=== PATIENT | male | born 1955 | race Caucasian/White ===

== ENCOUNTER → 2018-10-03 | Outpatient (CLI) | payer OTHER, MEDICARE ==
[2018-10-03 08:17] LABS: African American GFR (CKD) >90 (>60 ml/min/1.73 sqM); Blood Urea Nitrogen 22 mg/dL (9-20); Non-African American GFR(CKD) >90 (>60 ml/min/1.73 sqM)
--- NOTE | 2018-10-03 09:14 | CT ---
EXAMINATION TYPE: CT chest w con DATE OF EXAM: 10/03/2018 COMPARISON: None HISTORY: Solitary pulmonary nodule CT DLP: 182.60 mGycm Automated exposure control for dose reduction was used. CONTRAST: CT scan of the chest is performed with IV Contrast, patient injected with 100 ml mL of Isovue 300. FINDINGS: LUNGS: There is a 1.8 cm pleural-based mass within the right lower lobe. Subsegmental areas of consol idation are noted. No pleural effusion or pneumothorax. MEDIASTINUM: There is a lymph node in the right hilum measuring 1.2 cm in short axis compatible with adenopathy additional shotty right hilar adenopathy noted. No pericardial effusion is seen. OTHER: Hypertrophic change of the vertebral column. IMPRESSION: 1. There is a 1.8 cm pleural-based mass right lower lobe. Malignancy in the differential diagnosis. R ecommend a PET scan to assess for inflammatory versus neoplastic process
== END | disposition home or self-care (01) ==
LOC: RADCTMAIN 07:44
PROVIDERS: ATTEND Family Medicine
DX: R91.8 Other nonspecific abnormal finding of lung field (principal)
CPT/HCPCS: 82565; 84520; 71260; 36415; Q9967

== ENCOUNTER → 2018-10-11 | Outpatient (CLI) | payer OTHER, MEDICARE ==
--- NOTE | 2018-10-12 11:13 | PE ---
EXAMINATION TYPE: PET CT fusion skull to thigh DATE OF EXAM: 10/11/2018 COMPARISON: CT chest 10/03/2018 Prior PET/CT: None HISTORY: Solitary pulmonary nodule right lung TECHNIQUE: Following the intravenous administration of 10.75 mCi of F-18 FDG, whole body images are performed from the skull base to the midthigh. Images are reviewed on the computer in the coronal, a xial, and sagittal planes. Reconstructed rotating images are created on independent workstation and reviewed on the computer. A localization and attenuation correction CT is performed in conjunction with the PET scan. DLP: 429.57 mGycm SCAN: Initial Blood glucose: 92 mg/dL Average Mediastinum SUV: 1.21 Average Liver SUV: 1.58 FINDINGS: NECK: No abnormal uptake THORAX: There is a focus of radiotracer posterior to the right shoulder within the soft tissues. This has an SUV value of 3.15 is uncertain etiology or clinical significance. Underlying CT appears unrem arkable. There is a peripheral consolidation in the lateral right lung base. This has an SUV of a 1.12 inches likely related to inflammatory change monitoring with CT can be performed. No suspicious uptake withi n the right hilar region is evident. ABDOMEN: No abnormal uptake PELVIS: No abnormal uptake OSSEOUS STRUCTURES: No abnormal uptake LOCALIZATION CT: Ascending thoracic aorta at the level of main pulmonary artery is 3.6 cm. The main p ulmonary artery the bifurcation is 2.1 cm. Prominent right hilar lymph node is not evident. There is continued consolidation in the periphery of the right lateral lung base currently measuring 1.8 cm, s table from prior exam. Moderate fecal retention is present. COMPARISON: Chest CT portion appears stable from comparison IMPRESSION: 1. Consolidation within the lateral right lung base appears to be compatible with an inflammatory pro cess. Recommend follow-up CT chest in 6 months. This should be confirmed as stable over the course of 2 years. 2. Focal area of radiotracer accumulation in the posterior right shoulder soft tissues of uncertain e tiology or significance. SUV value is higher than normal background.
== END | disposition home or self-care (01) ==
LOC: RADPETMAIN 13:32
PROVIDERS: ATTEND Family Medicine
DX: R91.1 Solitary pulmonary nodule (principal); I77.89 Other specified disorders of arteries and arterioles; K56.41 Fecal impaction
CPT/HCPCS: 78815; A9552

== ENCOUNTER → 2018-10-17 | Outpatient (CLI) | payer OTHER ==
--- NOTE | 2018-10-17 16:08 | MR ---
EXAMINATION TYPE: MR brain wo con DATE OF EXAM: 10/17/2018 3:02 PM COMPARISON: NONE HISTORY: Ataxic gait, right hemiparesis Multiplanar and multispin-echo imaging of the brain was performed . The ventricles, basal cisterns and sulci overlying the cerebral convexities are within normal limits. There is no evidence for midline shift or mass effect. Acute intracranial hemorrhage or extra-axial collection is not evident. The brain parenchyma reveals scattered and confluent hyperintensity in the periventricular and deep w fredis matter, approximately 30-40 lesions are present. Age-related atrophy is also present. No acute edema is identified. The paranasal sinuses are remarkable for inflammatory change in ethmoid air cells, frontal sinus, and mastoid air cells are well-aerated. IMPRESSION: Age-related changes of atrophy and probable chronic small vessel ischemia. Sinus disease.
== END | disposition home or self-care (01) ==
LOC: RADMRIMAIN 14:20
PROVIDERS: ATTEND Psychiatry & Neurology Neurology
DX: G31.1 Senile degeneration of brain, not elsewhere classified (principal); J32.9 Chronic sinusitis, unspecified; R26.0 Ataxic gait
CPT/HCPCS: 70551

== ENCOUNTER 2019-01-21 11:50 | Day surgery (SDC) | payer OTHER, MEDICARE ==
[2019-01-16 15:56] VITALS: BMI 22.8
[~2019-01-21 11:50] MED LIST: LACTATED RINGERS 1,000 ML IV SCH
[2019-01-21 12:10] VITALS: TEMP 98.6
[2019-01-21] MEDS ORDERED: PROPOFOL 10 MG/ML 20 ML VIAL IV ONE (13:44)
[2019-01-21] MEDS ORDERED: LIDOCAINE 1% INJ 10MG/ML (20 ML MDV) ONE (13:44)
--- NOTE | 2019-01-21 14:14 | P.PCN ---
Date of Procedure: 01/21/19 Description of Procedure: BRIEF HISTORY: 63-year-old male who presents for outpatient colonoscopy. Patient has a personal history of colon polyps. Last colonoscopy 5 years ago. Denies any change in bowel habits, blood per rectum or abdominal pain. PROCEDURE PERFORMED: Colonoscopy. PREOPERATIVE DIAGNOSIS: Personal history of colon polyps, last colonoscopy 5 years ago. ESTIMATED BLOOD LOSS: Minimal. IV sedation per Anesthesia. PROCEDURE: After informed consent was obtained, the patient, was brought into the endoscopy unit. IV sedation was administered by Anesthesia under continuous monitoring. Digital rectal examination was normal. Initially the Olympus CF-190 flexible video colonoscope was then inserted in the rectum, gradually advanced into the cecum without any difficulty. Careful examination was performed as the scope was gradually being withdrawn. Ileocecal valve and the appendiceal orifice were visualized and appeared normal. Prep was excellent. Mucosa of the cecum, ascending colon, transverse colon, descending colon, sigmoid colon, and rectum appeared normal. Retroflexion was performed in the rectum and no lesions were seen. The patient tolerated the procedure well. IMPRESSION: Normal-appearing colon from rectum to cecum. RECOMMENDATIONS: Findings of this examination were discussed with the patient and his . Okay to resume diet and medications. Would recommend repeat colonoscopy in 5 years given personal history of colon polyps.
[2019-01-21 14:35] VITALS: RESP 18
[2019-01-21 14:53] VITALS: BP 148/90; PULSE 70
== END 2019-01-21 15:00 | disposition home or self-care (01) ==
LOC: ORWHC2ENDO 11:50
PROVIDERS: ATTEND Internal Medicine
DX: Z12.11 Encounter for screening for malignant neoplasm of colon (principal); J45.909 Unspecified asthma, uncomplicated; M19.90 Unspecified osteoarthritis, unspecified site; G20 Parkinson's disease; Z79.82 Long term (current) use of aspirin; Z79.899 Other long term (current) drug therapy; Z91.018 Allergy to other foods; Z86.010 Personal history of colon polyps; Z87.19 Personal history of other diseases of the digestive system
CPT/HCPCS: 45378; J2001; J2704

== ENCOUNTER → 2019-02-11 | Outpatient (CLI) | payer OTHER, MEDICARE ==
[2019-02-11 10:13] LABS: African American GFR (CKD) >90 (>60 ml/min/1.73 sqM); Blood Urea Nitrogen 22 mg/dL (9-20); Non-African American GFR(CKD) >90 (>60 ml/min/1.73 sqM)
--- NOTE | 2019-02-11 15:05 | CT ---
EXAMINATION TYPE: CT chest w con DATE OF EXAM: 02/11/2019 COMPARISON: 10/03/2018 and PET/CT of 10/21/2018 HISTORY: Pulmonary nodule CT DLP: 179.10 mGycm. Automated Exposure Control for Dose Reduction was Utilized. TECHNIQUE: CT scan of the thorax is performed following with IV Contrast, patient injected with 100 ml mL of Isovue 300. FINDINGS: LUNGS: The previously seen 1.8 cm pleural-based mass on the CT of 10/03/2018 has decreased in size and now appears as focal scarring with a maximum dimension measuring 1 cm. This has predominantly linear components. There is cylindrical bronchiectasis and atelectasis in the right middle lobe. Medial righ t basilar atelectasis along the hemidiaphragm. There is no pleural effusion or pneumothorax seen. S ome tracheal secretions are seen in the upper trachea such as on image 10 of series 4. MEDIASTINUM: Decrease in size of the right hilar lymph node now measuring 9 mm in short axis. There a re no greater than 1 cm hilar or mediastinal lymph nodes. No pericardial effusion is seen. Vague p unctate coronary artery calcifications. OTHER: Mild multilevel degenerative disc disease of the spine. IMPRESSION: 1. Decreased size and now linear morphology of the right basilar pulmonary nodule appearing as a deve loping scar from prior infectious or inflammatory process. Precautionary follow-up CT thorax in 6-12 months could be considered. 2. Cylindrical bronchiectasis and groundglass opacities in the right middle lobe that can be seen in microbacterium avium complex ([place] syndrome is present. Additionally tracheal secretions a re incidentally noted.
== END | disposition home or self-care (01) ==
LOC: RADCTMAIN 09:26
PROVIDERS: ATTEND Family Medicine
DX: R91.1 Solitary pulmonary nodule (principal); J47.9 Bronchiectasis, uncomplicated
CPT/HCPCS: 36415; 71260; 82565; 84520

== ENCOUNTER → 2023-10-15 | Outpatient (CLI) | payer MEDICARE, OTHER | END | disposition home or self-care (01) | LOC: LABPRL 10:35 | PROVIDERS: ATTEND Family Medicine | DX: C91.90 Lymphoid leukemia, unspecified not having achieved remission (principal); R53.83 Other fatigue | CPT/HCPCS: 80053; 85025 ==

== ENCOUNTER → 2023-11-12 | Outpatient (CLI) | payer MEDICARE, OTHER ==
[2023-11-12 14:03] LABS: African American GFR (CKD) >90 (>60 ml/min/1.73 sqM); Blood Urea Nitrogen 19 mg/dL (9-20); Non-African American GFR(CKD) >90 (>60 ml/min/1.73 sqM)
--- NOTE | 2023-11-12 15:26 | CT ---
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 CONTRAST: CT scan of the chest, abdomen and pelvis is performed with Oral Contrast and with IV Contrast, patien t injected with 100 mL of Isovue 300. FINDINGS: CT chest: There is a 3.2 cm mass or focal parenchymal consolidation with ill-defined margins in the right lower lobe. The center of the mass is hypodense possibly indicating necrosis. There is a large area of con solidated opacity with air bronchograms and areas of decreased density in the right upper lobe. Findi ngs are suspicious for neoplasm or inflammatory process with early abscess development. The left lung is clear. There is no pleural effusion, pleural thickening or pneumothorax. The great vessels and chest are normal there is no mediastinal, hilar or axillary adenopathy. No focal osseous lesions are seen. CT abdomen and pelvis: There is a moderate hiatal hernia. Gallbladder is normal without distention, pericholecystic fluid, wall thickening or gallstone. There is no biliary ductal dilatation. There is no focal mass or organomegaly involving the liver, pancreas, spleen or adrenal glands.. There is no solid renal mass or hydronephrosis. There is no retroperitoneal adenopathy or hemorrhage in the caliber of the abdominal aorta is normal. The bowel loops are normal in caliber and there is no dilatation or obstruction. No inflammatory hernandez ges identified in the bowel wall and mesentery. There is no free intracranial air or fluid. There is no pelvic mass or adenopathy. There is no free fluid within the pelvis. There is moderate dextroscoliosis and moderate stenosis are multilevel degenerative disease from L2 t hrough S1. No focal osseous lesions identified. IMPRESSION: 1. Right lower and upper lobe lung consolidations/masses as described above. Moderate hiatal hernia. 2. No significant abnormalities of the abdomen or pelvis.
== END | disposition home or self-care (01) ==
LOC: RADCTMAIN 13:13
PROVIDERS: ATTEND Internal Medicine Hematology & Oncology
DX: C91.10 Chronic lymphocytic leukemia of B-cell type not having achieved remission
CPT/HCPCS: 36415; 71260; 74177; 82565; 84520

== ENCOUNTER 2023-11-21 14:41 | Inpatient (IN) | payer MEDICARE, OTHER ==
--- NOTE | 2023-11-21 15:34 | ED ---
SOB HPI - General Source: patient, RN notes reviewed Mode of arrival: ambulatory Limitations: no limitations - History of Present Illness Complaint: shortness of breath, cough <Griselda Silva - Last Filed: 11/21/23 15:31> - General Source: patient, RN notes reviewed Mode of arrival: ambulatory Limitations: no limitations - History of Present Illness Complaint: shortness of breath, cough, chest pain, pain with inspiration, anxiety -: days(s) Radiation: back Severity: moderate Severity scale (1-10): 7 Quality: sharp Consistency: constant Improves With: nothing Known History Of: COPD, asthma Context: recent URI Associated Symptoms: chest pain, pain with inspiration, cough, sputum production <Jacky Car - Last Filed: 12/03/23 12:50> - General Chief Complaint: Recheck/Abnormal Lab/Rx Stated Complaint: lung issue Time Seen by Provider: 11/21/23 15:31 - History of Present Illness Initial Comments: Quick Note: This is a 68-year-old male who presents to the emergency department for shortness of breath. Patient follows with Dr. Hebert for CLL. He had a CT scan done on 11/11 demonstrating a mass on his lungs. States that he has been having increasing shortness of breath, particularly at night. Also reports a cough with sputum production. He was advised by Dr. Hebert to come to the emergency department for further evaluation. (Griselda Silva) This is a 68-year-old who presents today for shortness of breath who is outgoing testing currently for underlying cancer with now shortness of breath and found of chest pain and a mass on his lung sent to ER for evaluation of shortness of breath which was especially worse at night (Jacky Car) - Related Data Home Medications Medication Instructions Recorded Confirmed Carbidopa-Levodopa 25-100 mg 2 tab PO QID@02,,,01/16/19 11/21/23 [Sinemet 25-100 mg] Cetirizine HCl [Zyrtec] 10 mg PO DAILY 01/16/19 11/21/23 Montelukast Sodium [Singulair] 10 mg PO DAILY 01/16/19 11/21/23 Cholecalciferol [Vitamin D3 (125 125 mcg PO DAILY 11/21/23 11/21/23 Mcg = 5000 Iu)] Men's Multivitamin Gummy 1 tab PO DAILY 11/21/23 11/21/23 Previous Rx's Medication Instructions Recorded Ciprofloxacin HCl [Cipro] 500 mg PO BID 15 Days #30 tab 12/02/23 Allergies Allergy/AdvReac Type Severity Reaction Status Date / Time casein Allergy Swelling Verified 11/21/23 15:04 gabapentin Allergy Rash/Hives, Verified 11/21/23 16:27 nausea/vomiting Milk Containing Products Allergy Swelling Verified 11/23/23 13:27 (Dairy) wheat Allergy Swelling Verified 11/21/23 15:04 Review of Systems ROS Other: All systems not noted in ROS Statement are negative. <Griselda Silva - Last Filed: 11/21/23 15:31> ROS Other: All systems not noted in ROS Statement are negative. <Jacky Car - Last Filed: 12/03/23 12:50> ROS Statement: Those systems with pertinent positive or pertinent negative responses have been documented in the HPI. Past Medical History Past Medical History: Neurologic Disorder, Osteoarthritis (OA) Additional Past Medical History / Comment(s): Parkinson's. Bilateral Tinnitus. History of Any Multi-Drug Resistant Organisms: None Reported Past Surgical History: Hernia Repair Past Anesthesia/Blood Transfusion Reactions: No Reported Reaction Past Psychological History: Anxiety Past Alcohol Use History: Occasional Past Drug Use History: None Reported - Past Family History Father Family Medical History: No Reported History <Griselda Silva - Last Filed: 11/21/23 15:31> General Exam Limitations: no limitations <Griselda Silva - Last Filed: 11/21/23 15:31> General appearance: alert, in no apparent distress Head exam: Present: atraumatic, normocephalic, normal inspection Eye exam: Present: normal appearance, PERRL, EOMI. Absent: scleral icterus, conjunctival injection, periorbital swelling ENT exam: Present: normal exam, mucous membranes moist Neck exam: Present: normal inspection. Absent: tenderness, meningismus, lymphadenopathy Respiratory exam: Present: normal lung sounds bilaterally. Absent: respiratory distress, wheezes, rales, rhonchi, stridor Cardiovascular Exam: Present: regular rate, normal rhythm, normal heart sounds. Absent: systolic murmur, diastolic murmur, rubs, gallop, clicks GI/Abdominal exam: Present: soft, normal bowel sounds. Absent: distended, tenderness, guarding, rebound, rigid Extremities exam: Present: normal inspection, full ROM, normal capillary refill. Absent: tenderness, pedal edema, joint swelling, calf tenderness Back exam: Present: normal inspection Neurological exam: Present: alert, oriented X3, CN II-XII intact Psychiatric exam: Present: normal affect, normal mood Skin exam: Present: warm, dry, intact, normal color. Absent: rash <Jacky Car - Last Filed: 12/03/23 12:50> - General Exam Comments Initial Comments: Visual Physical Exam Vital signs reviewed General: Well-appearing, nontoxic, no acute distress. Head: Normocephalic, atraumatic Eyes: PERRLA, EOMI ENT: Airway patent Chest: Nonlabored breathing Skin: No visual rash, normal skin tone Neuro: Alert and oriented 3 Musculoskeletal: No gross abnormalities (Griselda Silva) Course <Jacky Car - Last Filed: 12/03/23 12:50> Vital Signs 11/21/23 11/21/23 15:01 18:08 Temperature 97.9 F Pulse Rate 104 H 89 Respiratory 18 18 Rate Blood Pressure 105/69 110/63 O2 Sat by Pulse 100 100 Oximetry - Reevaluation(s) Reevaluation #1: 11/21/23 19:08 Medical records reviewed (Jacky Car) Reevaluation #2: 11/21/23 19:08 Patient symptoms relatively unchanged (Jacky Car) Reevaluation #3: 11/21/23 19:08 Patient informed of results and questions answered (Jacky Car) Reevaluation #4: Was pt. sent in by a medical professional or institution (, PA, [employer], urgent care, hospital, or fdc...) When possible be specific @ -no Did you speak to anyone other than the patient for history (EMS, parent, family, police, friend...)? What history was obtained from this source @ -no Did you review nursing and triage notes (agree or disagree)? Why? @ -agree Are old charts reviewed (outside hosp., previous admission, EMS record, old EKG, old radiological studies, urgent care reports/EKG's, fdc records)? Re port findings @ -yes Differential Diagnosis (chest pain, altered mental status, abdominal pain women, abdominal pain men, vaginal bleeding, weakness, fever, dyspnea, syncope, headache, dizziness, GI bleed, back pain, seizure, CVA, palpatations, mental health, musculoskeletal)? @ -prior EKG interpreted by me (3pts min.). @ -yes X-rays interpreted by me (1pt min.). @ -yes positive for cancer pneumonia CT interpreted by me (1pt min.). @ -Yes positive for cancer pneumonia U/S interpreted by me (1pt. min.). @ -no What testing was considered but not performed or refused? (CT, X-rays, U/S, la bs)? Why? @ -none What meds were considered but not given or refused? Why? @ -none Did you discuss the management of the patient with other professionals (professionals i.e. , PA, [employer], lab, RT, psych nurse, family welfare social work professor, content management consultant, teacher, chief operations officer, casework supervisor)? Give summary @ -no Was smoking cessation discussed for >3mins.? @ -no Was critical care preformed (if so, how long)? @ -yes31 Were there social determinants of health that impacted care today? How? (Homelessness, low income, unemployed, alcoholism, drug addiction, transportation, low edu. Level, literacy, decrease access to med. care, intermediate, rehab)? @ -none Was there de-escalation of care discussed even if they declined (Discuss DNR or withdrawal of care, Hospice)? DNR status @ -no What co-morbidities impacted this encounter? (DM, HTN, Smoking, COPD, CAD, Cancer, CVA, ARF, Chemo, Hep., AIDS, mental health diagnosis, sleep apnea, morbid obesity)? @ -none Was patient admitted / discharged? Hospital course, mention meds given and route, prescriptions, significant lab abnormalities, going to OR and other pertinent info. @ - 68 male will be admitted for likely obstructive pneumonia lung cancer elevating white count Admitted Undiagnosed new problem with uncertain prognosis? @ -no Drug Therapy requiring intensive monitoring for toxicity (Heparin, Nitro, Insulin, Cardizem)? @ -no Were any procedures done? @ -no Diagnosis/symptom? @ -obstructive pneumonia with lung cancer Acute, or Chronic, or Acute on Chronic? @ -Acute Uncomplicated (without systemic symptoms) or Complicated (systemic symptoms)? @ -Complicated Side effects of treatment? @ -no Exacerbation, Progression, or Severe Exacerbation? @ -exacerbation Poses a threat to life or bodily function? How? (Chest pain, [place], [place], pneumonia, PE, COPD, DKA, ARF, appy, cholecystitis, CVA, Diverticulitis, Homicidal, Suicidal, threat to staff... and all critical care pts) @ -yes extremes of age (Jacky Car) Reevaluation #5: Differential Dyspnea: Coronary syndrome, arrhythmia, tamponade, asthma, COPD, pulmonary embolism, pneumonia, pneumothorax, pulmonary effusion, anaphylaxis, diabetic ketoacidosis, flailed chest, pulmonary contusion, diaphragmatic rupture, anemia, neuromuscular, this is not meant to be an all-inclusive list. Differential Weakness: Hypoglycemia, shock, sepsis, hyponatremia, anemia, infection, [place], ETOH, adverse medicine reaction, overdose, stroke, this is not meant to be an all-inclusive list. (Jacky Car) - Consultations Consultation #1: Spoke with Dr. Foster who agrees to admit this patient (Jacky Car) Medical Decision Making <Griselda Silva - Last Filed: 11/21/23 15:31> - Lab Data Result diagrams: 12/02/23 06:23 12/02/23 06:23 - EKG Data -: EKG Interpreted by Me (EKG is sinus 88 DC 142 QRS 94 QTc 413) - Radiology Data Radiology results: report reviewed (Chest x-ray shows symptoms of significant pneumonia), image reviewed <Jacky Car - Last Filed: 12/03/23 12:50> - Medical Decision Making I performed the QuickNote portion of this chart. Signed Griselda Silva PA-C. (Griselda Silva) 68 male will be admitted for likely obstructive pneumonia lung cancer elevating white count (Jacky Car) - Lab Data Lab Results 11/21/23 11/21/23 11/21/23 Range/Units 16:48 16:48 16:48 WBC 28.8 H (3.8-10.6) k/uL RBC 4.33 (4.30-5.90) m/uL Hgb 10.9 L (13.0-17.5) gm/dL Hct 33.8 L (39.0-53.0) % MCV 78.1 L (80.0-100.0) fL MCH 25.1 (25.0-35.0) pg MCHC 32.2 (31.0-37.0) g/dL RDW 15.2 (11.5-15.5) % Plt Count 822 H (150-450) k/uL MPV 8.3 Neutrophils % 62 % Lymphocytes % 33 % Monocytes % 4 % Eosinophils % 0 % Basophils % 0 % Neutrophils # 17.7 H (1.3-7.7) k/uL Lymphocytes # 9.4 H (1.0-4.8) k/uL Monocytes # 1.1 H (0-1.0) k/uL Eosinophils # 0.1 (0-0.7) k/uL Basophils # 0.1 (0-0.2) k/uL Manual Slide Review Performed Hypochromasia Slight PT 12.3 (10.0-12.5) sec INR 1.2 H (<1.2) APTT 29.2 (22.0-30.0) sec Sodium 135 L (137-145) mmol/L Potassium 4.8 (3.5-5.1) mmol/L Chloride 96 L (98-107) mmol/L Carbon Dioxide 32 H (22-30) mmol/L Anion Gap 7 mmol/L BUN 19 (9-20) mg/dL Creatinine 0.58 L (0.66-1.25) mg/dL Est GFR (CKD-EPI)AfAm >90 (>60 ml/min/1.73 sqM) Est GFR (CKD-EPI)NonAf >90 (>60 ml/min/1.73 sqM) Glucose 101 H (74-99) mg/dL Plasma Lactic Acid Kyle (0.7-2.0) mmol/L Calcium 9.4 (8.4-10.2) mg/dL Magnesium 1.8 (1.6-2.3) mg/dL Total Bilirubin 0.8 (0.2-1.3) mg/dL AST 20 (17-59) U/L ALT <6 (4-49) U/L Alkaline Phosphatase 144 H (38-126) U/L Troponin I (0.000-0.034) ng/mL NT-Pro-B Natriuret Pep 376 pg/mL Total Protein 6.4 (6.3-8.2) g/dL Albumin 3.2 L (3.5-5.0) g/dL Influenza Type A (PCR) (Not Detectd) Influenza Type B (PCR) (Not Detectd) RSV (PCR) (Not Detectd) SARS-CoV-2 (PCR) (Not Detectd) 11/21/23 11/21/23 11/21/23 Range/Units 16:48 16:48 16:48 WBC (3.8-10.6) k/uL RBC (4.30-5.90) m/uL Hgb (13.0-17.5) gm/dL Hct (39.0-53.0) % MCV (80.0-100.0) fL MCH (25.0-35.0) pg MCHC (31.0-37.0) g/dL RDW (11.5-15.5) % Plt Count (150-450) k/uL MPV Neutrophils % % Lymphocytes % % Monocytes % % Eosinophils % % Basophils % % Neutrophils # (1.3-7.7) k/uL Lymphocytes # (1.0-4.8) k/uL Monocytes # (0-1.0) k/uL Eosinophils # (0-0.7) k/uL Basophils # (0-0.2) k/uL Manual Slide Review Hypochromasia PT (10.0-12.5) sec INR (<1.2) APTT (22.0-30.0) sec Sodium (137-145) mmol/L Potassium (3.5-5.1) mmol/L Chloride (98-107) mmol/L Carbon Dioxide (22-30) mmol/L Anion Gap mmol/L BUN (9-20) mg/dL Creatinine (0.66-1.25) mg/dL Est GFR (CKD-EPI)AfAm (>60 ml/min/1.73 sqM) Est GFR (CKD-EPI)NonAf (>60 ml/min/1.73 sqM) Glucose (74-99) mg/dL Plasma Lactic Acid Kyle 1.1 (0.7-2.0) mmol/L Calcium (8.4-10.2) mg/dL Magnesium (1.6-2.3) mg/dL Total Bilirubin (0.2-1.3) mg/dL AST (17-59) U/L ALT (4-49) U/L Alkaline Phosphatase (38-126) U/L Troponin I <0.012 (0.000-0.034) ng/mL NT-Pro-B Natriuret Pep pg/mL Total Protein (6.3-8.2) g/dL Albumin (3.5-5.0) g/dL Influenza Type A (PCR) Not Detected (Not Detectd) Influenza Type B (PCR) Not Detected (Not Detectd) RSV (PCR) Not Detected (Not Detectd) SARS-CoV-2 (PCR) Not Detected (Not Detectd) Critical Care Time Critical Care Time: Yes Total Critical Care Time: 31 <Jacky Car - Last Filed: 12/03/23 12:50> Disposition <Griselda Silva - Last Filed: 11/21/23 15:31> Is patient prescribed a controlled substance at d/c from ED?: No Time of Disposition: 18:40 <Jacky Car - Last Filed: 12/03/23 12:50> Clinical Impression: Pneumonia, Lung cancer, Mass of right lung, Pneumonia involving right lung Disposition: ADMITTED IP TO THIS HOSP Condition: Good
--- NOTE | 2023-11-21 16:27 | XR ---
EXAMINATION TYPE: XR chest 2V DATE OF EXAM: 11/21/2023 COMPARISON: 05/16/2023 HISTORY: 68-year-old male shortness of breath, difficulty breathing, right lung mass TECHNIQUE: AP and lateral views FINDINGS: Heart normal size. Large opacity filling the right apex down to the right midlung level. There is a small hiatal hernia present. IMPRESSION: 1. Severe pneumonia right upper and midlung. Given the persistence, underlying pulmonary abscess not excluded. 2. Small hiatal hernia. [facility], Workstation: [facility], 11/21/2023 4:25 PM
[2023-11-21 17:16] LABS: Basophils # (A) 0.1 k/uL (0-0.2); Basophils % (A) 0 %; Eosinophils # (A) 0.1 k/uL (0-0.7); Eosinophils % (A) 0 %; HCT 33.8 % (39.0-53.0); HGB 10.9 gm/dL (13.0-17.5); Hypochromasia Slight; Lymphocytes # (A) 9.4 k/uL (1.0-4.8); Lymphocytes % (A) 33 %; MCH 25.1 pg (25.0-35.0); MCHC 32.2 g/dL (31.0-37.0); MCV 78.1 fL (80.0-100.0); Mean Platelet Volume 8.3; Monocytes # (A) 1.1 k/uL (0-1.0); Monocytes % (A) 4 %; Neutrophils # (A) 17.7 k/uL (1.3-7.7); Neutrophils % (A) 62 %; Platelet Count 822 k/uL (150-450); RBC 4.33 m/uL (4.30-5.90); RDW 15.2 % (11.5-15.5); WBC 28.8 k/uL (3.8-10.6)
[2023-11-21 17:19] LABS: ALT <6 U/L (4-49); AST 20 U/L (17-59); African American GFR (CKD) >90 (>60 ml/min/1.73 sqM); Albumin 3.2 g/dL (3.5-5.0); Alkaline Phosphatase 144 U/L (38-126); Anion Gap 7 mmol/L; Blood Urea Nitrogen 19 mg/dL (9-20); Calcium 9.4 mg/dL (8.4-10.2); Carbon Dioxide 32 mmol/L (22-30); Chloride 96 mmol/L (98-107); Glucose 101 mg/dL (74-99); Magnesium 1.8 mg/dL (1.6-2.3); Non-African American GFR(CKD) >90 (>60 ml/min/1.73 sqM); Potassium 4.8 mmol/L (3.5-5.1); Sodium 135 mmol/L (137-145); Total Bilirubin 0.8 mg/dL (0.2-1.3); Total Protein 6.4 g/dL (6.3-8.2)
[2023-11-21 17:25] LABS: INR 1.2 (<1.2); Partial Thromboplastin Time 29.2 sec (22.0-30.0); Prothrombin Time 12.3 sec (10.0-12.5)
[2023-11-21 17:26] LABS: NT-Pro-B-Type Natriuretic Pept 376 pg/mL
[2023-11-21] MEDS ORDERED: IPRATROPIUM-ALBUTEROL 3 ML NEB INHALATION PRN (18:44)
[2023-11-21] MEDS ORDERED: PNEUMONIA PROTOCOL UTILIZED 1 EACH MISC PO PRN (18:44)
[2023-11-21] MEDS: CARBIDOPA-LEVODOPA 25-100 MG 1 EACH TAB PO SCH (19:46)
[2023-11-21] MEDS: PIPERACILLIN-TAZOBACTAM 3.375 GM in SODIUM CHLORIDE 0.9% 100 ML IVPB STA (19:51)
[2023-11-21] MEDS: SODIUM CHLORIDE 0.9% 1,000 ML IV SCH (20:40)
[2023-11-21] MEDS: AZITHROMYCIN 500 MG in SODIUM CHLORIDE 0.9% 250 ML IVPB STA (20:40)
[2023-11-22] MEDS: PIPERACILLIN-TAZOBACTAM 3.375 GM in SODIUM CHLORIDE 0.9% 100 ML IVPB SCH (03:02)
--- NOTE | 2023-11-22 06:10 | P.CNPUL ---
History of Present Illness Consult date: 11/22/23 Requesting physician: Jacky Car Reason for consult: dyspnea Chief complaint: Shortness of breath History of present illness: Patient is a 68-year-old male with past medical history significant for lung nodules, bronchiectasis, Parkinson's disease, CLL. Patient follows in the pulmonary office with Dr. Morocho. Had a previous right lower lobe peripheral based nodule. PET scan done in 2019 concerning for inflammatory process. This was followed outpatient. Patient had a more recent outpatient CT of the chest demonstrating right lower and upper lobe lung consolidation/mass like opacities. He was directed to the emergency department by his oncologist, Dr. Hebert. It appears the patient has a 3.2 cm mass or focal parenchymal consolidation with ill-defined margins in the right lower lobe. The center of the mass is hypodense possibly indicating necrosis. There is a large area of consolidated opacity with air bronchograms and areas of decreased density in the right upper lobe. Findings are suspicious for neoplasm or inflammatory process with early abscess development. Incidental hiatal hernia noted. CBC: WBC count 28.8, hemoglobin 10.9, hematocrit 33.8, platelets 822. CMP: Sodium 135, potassium 4.8, chloride 96, serum bicarb 32, BUN 19, creatinine 0.58, glucose 101. Lactic 1.1. Normal saline infusing at 100 mL/h LFTs unremarkable. Troponin less than 0.012. NT proBNP 376. Negative for influenza, RSV, COVID. Currently, the patient is covered on empiric antibiotics. Procalcitonin level pending. Afebrile. Currently resting comfortably on room air. SpO2 94%. Nontoxic appearance. Over the last 2 weeks the patient has had a congested cough with green sputum production. Sputum is foul tasting. No hemoptysis. There is associated right sided thoracic level back pain. He denies any fevers or chills. He has had an approximately 18 pound weight loss over the last couple months. He has been very fatigued over the last couple weeks. No smoking history. Patient does have Parkinson's disease, and normally ambulates with walker. Occasionally has issues swallowing. Food gets stuck in his throat. Frequently coughs after eating. No dental infections. Denies drug or alcohol use. Review of Systems Constitutional: Reports fatigue, Reports weight loss, Denies chills, Denies fever, Denies night sweats, Denies weight gain Ears, nose, mouth and throat: Reports dysphagia, Denies dental pain, Denies headache, Denies nasal congestion, Denies nasal discharge, Denies neck fullness/pressure, Denies neck lump, Denies post-nasal drip, Denies sinus pressure, Denies sore throat Cardiovascular: Reports decreased exercise tolerance, Denies chest pain, Denies leg edema, Denies orthopnea, Denies palpitations, Denies paroxysmal nocturnal dyspnea, Denies syncope Respiratory: Reports as per HPI Gastrointestinal: Reports loss of appetite, Reports nausea, Reports vomiting, Denies abdominal pain, Denies constipation, Denies diarrhea, Denies hematemesis Genitourinary: Denies dysuria Musculoskeletal: Reports gait dysfunction, Denies arm numbness/tingling, Denies leg numbness/tingling, Denies muscle weakness Integumentary: Denies rash Neurological: Reports gait dysfunction, Reports tremors, Denies confusion, Denies lack of coordination, Denies memory loss, Denies seizures, Denies visual changes Psychiatric: Denies anxiety, Denies depression Past Medical History Past Medical History: Cancer, Neurologic Disorder, Osteoarthritis (OA) Additional Past Medical History / Comment(s): Parkinson's. Bilateral Tinnitus, degenerative disk disease, scoliosis, spondyolisthesis, chronic lymphocytic leukemia History of Any Multi-Drug Resistant Organisms: None Reported Past Surgical History: Hernia Repair Past Anesthesia/Blood Transfusion Reactions: No Reported Reaction Past Psychological History: Anxiety Smoking Status: Never smoker Past Alcohol Use History: Occasional Past Drug Use History: None Reported - Past Family History Father Family Medical History: Myocardial Infarction ([place]) Additional Family Medical History / Comment(s): Father of heart attack Medications and Allergies Home Medications Medication Instructions Recorded Confirmed Type Carbidopa-Levodopa 25-100 mg 2 tab PO QID@02,08,14,20 01/16/19 11/21/23 History [Sinemet 25-100] Cetirizine HCl [Zyrtec] 10 mg PO DAILY 01/16/19 11/21/23 History Montelukast Sodium [Singulair] 10 mg PO DAILY 01/16/19 11/21/23 History hydrOXYzine HCL [Atarax] 50 mg PO HS 01/16/19 11/21/23 History Cholecalciferol [Vitamin D3 (125 125 mcg PO DAILY 11/21/23 11/21/23 History Mcg = 5000 Iu)] Men's Multivitamin Gummy 1 tab PO DAILY 11/21/23 11/21/23 History Allergies Allergy/AdvReac Type Severity Reaction Status Date / Time casein Allergy Swelling Verified 11/21/23 15:04 gabapentin Allergy Rash/Hives, Verified 11/21/23 16:27 nausea/vomiting wheat Allergy Swelling Verified 11/21/23 15:04 Physical Exam Vitals: Vital Signs Temp Pulse Pulse Resp BP BP Pulse Ox 11/22/23 01:39 98.6 F 98 16 105/67 93 L 11/21/23 21:29 98.3 F 87 16 102/65 94 L 11/21/23 18:08 89 18 110/63 100 11/21/23 15:01 97.9 F 104 H 18 105/69 100 Intake and Output 11/21/23 11/21/23 11/22/23 14:59 22:59 06:59 Other: Voiding Method Urinal Weight 61.689 kg GENERAL EXAM: Alert, 68-year-old white male, comfortable in no apparent distress. HEAD: Normocephalic and atraumatic EYES: Normal reaction of pupils, equal size. NOSE: Clear with pink turbinates. THROAT: No erythema or exudates. NECK: No masses, no JVD. CHEST: No chest wall deformity. LUNGS: Equal air entry with no crackles, wheeze, rhonchi or dullness. On room air. No conversational dyspnea or accessory muscle use.. CVS: S1 and S2 normal with no audible murmur, regular rhythm. No extra heart sounds ABDOMEN: No hepatosplenomegaly, active bowel sounds, no guarding or rigidity. SPINE: No scoliosis or deformity SKIN: No rashes CENTRAL NERVOUS SYSTEM: No focal deficits, tone is normal in all 4 extremities. EXTREMITIES: There is no peripheral edema, clubbing, or cyanosis. Peripheral pulses are intact. Results - Laboratory Findings CBC and BMP: 11/21/23 16:48 11/21/23 16:48 PT/INR, D-dimer PT 12.3 sec (10.0-12.5) 11/21/23 16:48 INR 1.2 (<1.2) H 11/21/23 16:48 Abnormal lab findings: Abnormal Labs 11/21/23 11/21/23 11/21/23 16:48 16:48 16:48 WBC 28.8 H Hgb 10.9 L Hct 33.8 L MCV 78.1 L Plt Count 822 H Neutrophils # 17.7 H Lymphocytes # 9.4 H Monocytes # 1.1 H INR 1.2 H Sodium 135 L Chloride 96 L Carbon Dioxide 32 H Creatinine 0.58 L Glucose 101 H Alkaline Phosphatase 144 H Albumin 3.2 L - Diagnostic Findings Chest x-ray: image reviewed CT scan - chest: image reviewed Assessment and Plan Assessment: Right lower and upper lobe lung consolidation/masslike opacities, differential includes infectious process with early abscess or malignancy. Outpatient CT of the chest demonstrating right lower and upper lobe lung consolidation/mass like opacities. It appears the patient has a 3.2 cm mass or focal parenchymal consolidation with ill-defined margins in the right lower lobe. The center of the mass is hypodense possibly indicating necrosis. There is a large area of consolidated opacity with air bronchograms and areas of decreased density in the right upper lobe. Findings are suspicious for neoplasm or infectious/inflammatory process with early abscess development. No significant hilar/mediastinal adenopathy. Chronic leukocytosis, higher than baseline History of CLL Hiatal hernia History of a Parkinson's disease Chronic dysphagia History of acquired bronchiectasis History of right lower lobe pleural-based pulmonary nodule Plan: Patient's medications, labs, imaging reviewed On room air, no acute distress CT scan results discussed with patient, and spouse who is at bedside Patient may need to undergo bronchoscopy Case will be discussed with Dr. Coker In the meantime, cover with empiric antibiotics Check procalcitonin level Blood and sputum cultures pending We will continue to follow, and additional recommendations are forthcoming. I have personally seen and examined the patient, performed the documentation and the assessment and plan as written. Number of minutes spent on the visit:20 Time with Patient: Greater than 30
[2023-11-22] MEDS: AZITHROMYCIN 500 MG in SODIUM CHLORIDE 0.9% 250 ML IVPB SCH (10:30)
[2023-11-22 14:30] VITALS: BMI 18.9
[2023-11-22 15:22] LABS: Immunoglobulin M 59.2 mg/dL (40.0-280.0)
--- NOTE | 2023-11-22 17:08 | XR ---
EXAMINATION TYPE: XR chest 2V DATE OF EXAM: 11/22/2023 4:38 PM CLINICAL INDICATION: Male, 68 years old with history of pneumonia; [facility] COMPARISON: Chest radiographs from 11/12/2023 TECHNIQUE: XR chest 2V Frontal view of the chest. FINDINGS: Lungs/Pleura: Consolidation of the right upper lung as seen on prior radiograph and similar to CT bra in 924. There is no evidence of pleural effusion, focal consolidation, or pneumothorax. Pulmonary vascularity: Unremarkable. Heart/mediastinum: Cardiomediastinal silhouette is unremarkable. Musculoskeletal: No acute osseous pathology. IMPRESSION: Right upper lung airspace opacity/consolidation as seen on same day radiograph. Findings are similar to 11/12/2023 CT[facility], , 11/22/2023 5:06 PM
--- NOTE | 2023-11-22 18:21 | P.HPIM ---
History of Present Illness H&P Date: 11/22/23 Jessica Pathak, is a 68-year-old male who presented to [facility] emergency room with a chief complaint of worsening shortness of breath, and a new 3.2 cm mass or focal consolidation with ill-defined margins in the right lower lobe on recent CT scan of the chest. Patient has a known history of chronic lymphocytic leukemia followed by oncology he also has a known history of Parkinson disease and history of bronchiectasis, he had a previous history of right lower lobe pleural-based pulmonary nodule followed by pulmonary as outpatient. He was evaluated in the emergency room vital examination on presentation revealed a temperature of 98.6 pulse 98 respirations 16 blood pressure 105/67 pulse ox 93% on room air Laboratory data revealed a white blood count of 28.8 hemoglobin 10.9 platelet count 822 BUN 19 creatinine 0.59 Testing in the emergency room revealed Patient was admitted to medical floor for further evaluation and treatment Past Medical History Past Medical History: Cancer, Neurologic Disorder, Osteoarthritis (OA) Additional Past Medical History / Comment(s): Parkinson's. Bilateral Tinnitus, degenerative disk disease, scoliosis, spondyolisthesis, chronic lymphocytic leukemia History of Any Multi-Drug Resistant Organisms: None Reported Past Surgical History: Hernia Repair Past Anesthesia/Blood Transfusion Reactions: No Reported Reaction Past Psychological History: Anxiety Smoking Status: Never smoker Past Alcohol Use History: Occasional Past Drug Use History: None Reported - Past Family History Father Family Medical History: Myocardial Infarction ([place]) Additional Family Medical History / Comment(s): Father of heart attack Medications and Allergies Home Medications Medication Instructions Recorded Confirmed Type Carbidopa-Levodopa 25-100 mg 2 tab PO QID@,,,01/16/19 11/21/23 History [Sinemet 25-100] Cetirizine HCl [Zyrtec] 10 mg PO DAILY 01/16/19 11/21/23 History Montelukast Sodium [Singulair] 10 mg PO DAILY 01/16/19 11/21/23 History hydrOXYzine HCL [Atarax] 50 mg PO HS 01/16/19 11/21/23 History Cholecalciferol [Vitamin D3 (125 125 mcg PO DAILY 11/21/23 11/21/23 History Mcg = 5000 Iu)] Men's Multivitamin Gummy 1 tab PO DAILY 11/21/23 11/21/23 History Allergies Allergy/AdvReac Type Severity Reaction Status Date / Time casein Allergy Swelling Verified 11/21/23 15:04 gabapentin Allergy Rash/Hives, Verified 11/21/23 16:27 nausea/vomiting wheat Allergy Swelling Verified 11/21/23 15:04 Physical Exam Vitals: Vital Signs Temp Pulse Pulse Resp BP BP Pulse Ox 11/22/23 08:05 97 11/22/23 07:56 97.6 F 92 18 113/65 95 11/22/23 01:39 98.6 F 98 16 105/67 93 L 11/21/23 21:29 98.3 F 87 16 102/65 94 L 11/21/23 18:08 89 18 110/63 100 11/21/23 15:01 97.9 F 104 H 18 105/69 100 Intake and Output 11/21/23 11/22/23 11/22/23 22:59 06:59 14:59 Intake Total 1690 Balance 1690 Intake: Intake, IV Titration 1100 Amount Piperacillin-Tazobactam 3 100 .375 gm In Sodium Chloride 0.9% 100 ml @ 25 mls/hr IVPB Q8H FELIPE Rx#: [id number] Sodium Chloride 0.9% 1, 1000 000 ml @ 100 mls/hr IV . Q10H FELIPE Rx#:[id number] Oral 590 Other: Voiding Method Urinal # Voids 1 Weight 61.689 kg In general patient is alert and oriented x 3 in no distress HEENT head normocephalic and atraumatic Neck is supple no JVD no goiter no lymphadenopathy no carotid bruit Chest examination reveals a scattered crackles bilaterally no wheezing Cardiac exam reveals regular heart sounds S1 and S2 no gallops no murmurs Abdomen is soft nontender no organomegaly with normal bowel sounds Extremity exam reveals no edema no cyanosis or clubbing Neurological examination reveals no gross focal deficits Results CBC & Chem 7: 11/21/23 16:48 11/21/23 16:48 Labs: Abnormal Lab Results - Last 24 Hours (Table) 11/21/23 11/21/23 11/21/23 Range/Units 16:48 16:48 16:48 WBC 28.8 H (3.8-10.6) k/uL Hgb 10.9 L (13.0-17.5) gm/dL Hct 33.8 L (39.0-53.0) % MCV 78.1 L (80.0-100.0) fL Plt Count 822 H (150-450) k/uL Neutrophils # 17.7 H (1.3-7.7) k/uL Lymphocytes # 9.4 H (1.0-4.8) k/uL Monocytes # 1.1 H (0-1.0) k/uL INR 1.2 H (<1.2) Sodium 135 L (137-145) mmol/L Chloride 96 L (98-107) mmol/L Carbon Dioxide 32 H (22-30) mmol/L Creatinine 0.58 L (0.66-1.25) mg/dL Glucose 101 H (74-99) mg/dL Alkaline Phosphatase 144 H (38-126) U/L Albumin 3.2 L (3.5-5.0) g/dL Thrombosis Risk Factor Assmnt - Choose All That Apply Any of the Below Risk Factors Present?: No Other Risk Factors: Yes Each Risk Factor Represents 2 Points: Age 61-74 years, Malignancy Thrombosis Risk Factor Assessment Total Risk Factor Score: 4 Thrombosis Risk Factor Assessment Level: Moderate Risk Assessment and Plan Plan: Right lower lobe and right upper lobe consolidation opacities on recent CT scan done as outpatient, patient is admitted to medical floor pulmonary consultation was requested Underlying history of chronic lymphocytic leukemia Underlying history of Parkinson disease Underlying history of bronchiectasis Underlying history of chronic dysphagia Underlying history of right lower lobe pulmonary nodule At this time patient is admitted to medical floor Home medications reviewed and reordered Pulmonary consultation was requested Will follow closely
--- NOTE | 2023-11-22 20:17 | P.CONS ---
History of Present Illness - Reason for Consult Consult date: 11/22/23 hx CLL Requesting physician: Jacky Car - Chief Complaint SOB, cough - History of Present Illness Patient is a 68 year old male with a significant history of CLL, who follows with Dr. Hebert. Patient was diagnosed with CLL by his PCP due to elevated WBC in lymphocyte count, about 4 years prior to his initial consult here. The patient appeared to have stage 0 disease, and was followed with observation. His WBC was typically in the low to mid 20 range, with normal hemoglobin and platelets. On 08/03/23 his counts appear to be at baseline with WBC 14.54, hemoglobin 13.8 and platelets 342. He had since had progressive fatigue and increased sleepiness, and has lost between 10-15 pounds in weight. Labs from 10/16/23 showed WBC of 19.93, hemoglobin dropping to 11.2, and platelets increased to 584. Differential interestingly showed elevated neutrophils at 10.1 for an absolute lymphocytes at 8.68. He was therefore referred to our clinic for further evaluation and conditions and established care on 10/31/23. The patient has subsequently labs done, that appeared to show significant inflammatory change which would explain the neutrophilia and the thrombo- cytosis. Sedimentation rate was greater than 130. Rheumatoid factor was mildly elevated, and is nonspecific. CT scan of the chest abdomen and pelvis showed significant areas of consolidation in the right lung, with associated necrosis and air bronchograms. Underlying mass causing obstruction, was not ruled out. He was advised that there appears to be no evidence of CLL progression, and that his CBC changes appear to be due to the major inflammatory process involving the right lung, with likely infection. Based on the CT scan, an underlying mass with necrosis, versus developing abscess cannot be ruled out. He was thus referred to the hospital for admission to be treated with IV antibiotics and to have further workup with pulmonary medicine. Patient states he has been experiencing chills, SOB, productive cough with while/yellow/green sputum, and night sweats. On admission at chest x-ray showed severe pneumonia right upper and midlung, given the persistence, underlying abscess not excluded. Patient was started on IV antibiotics with azithromycin and Zosyn. Viral panel negative. Blood and sputum culture pending. CBC showing leukocytosis with WBC 28.8, hemoglobin 10.9, platelets 822,000. Patient is afebrile, SpO2 95-97% on room air. Pulmonology following. Plan for now is to continue on IV abx and pending clinical course, may consider bronchoscopy. Review of Systems 10 point ROS is negative except as stated in the HPI Past Medical History Past Medical History: Cancer, Neurologic Disorder, Osteoarthritis (OA) Additional Past Medical History / Comment(s): Parkinson's. Bilateral Tinnitus, degenerative disk disease, scoliosis, spondyolisthesis, chronic lymphocytic leukemia History of Any Multi-Drug Resistant Organisms: None Reported Past Surgical History: Hernia Repair Past Anesthesia/Blood Transfusion Reactions: No Reported Reaction Past Psychological History: Anxiety Smoking Status: Never smoker Past Alcohol Use History: Occasional Past Drug Use History: None Reported - Past Family History Father Family Medical History: Myocardial Infarction ([place]) Additional Family Medical History / Comment(s): Father of heart attack Medications and Allergies Home Medications Medication Instructions Recorded Confirmed Type Carbidopa-Levodopa 25-100 mg 2 tab PO QID@02,08,14,20 01/16/19 11/21/23 History [Sinemet 25-100] Cetirizine HCl [Zyrtec] 10 mg PO DAILY 01/16/19 11/21/23 History Montelukast Sodium [Singulair] 10 mg PO DAILY 01/16/19 11/21/23 History hydrOXYzine HCL [Atarax] 50 mg PO HS 01/16/19 11/21/23 History Cholecalciferol [Vitamin D3 (125 125 mcg PO DAILY 11/21/23 11/21/23 History Mcg = 5000 Iu)] Men's Multivitamin Gummy 1 tab PO DAILY 11/21/23 11/21/23 History Allergies Allergy/AdvReac Type Severity Reaction Status Date / Time casein Allergy Swelling Verified 11/21/23 15:04 gabapentin Allergy Rash/Hives, Verified 11/21/23 16:27 nausea/vomiting wheat Allergy Swelling Verified 11/21/23 15:04 Physical Exam Vitals: Vital Signs Temp Pulse Pulse Resp BP BP Pulse Ox 11/22/23 08:05 97 11/22/23 07:56 97.6 F 92 18 113/65 95 11/22/23 01:39 98.6 F 98 16 105/67 93 L 11/21/23 21:29 98.3 F 87 16 102/65 94 L 11/21/23 18:08 89 18 110/63 100 11/21/23 15:01 97.9 F 104 H 18 105/69 100 Intake and Output 11/21/23 11/22/23 11/22/23 22:59 06:59 14:59 Intake Total 1690 Balance 1690 Intake: Intake, IV Titration 1100 Amount Piperacillin-Tazobactam 3 100 .375 gm In Sodium Chloride 0.9% 100 ml @ 25 mls/hr IVPB Q8H FELIEP Rx#: [id number] Sodium Chloride 0.9% 1, 1000 000 ml @ 100 mls/hr IV . Q10H FELIPE Rx#:[id number] Oral 590 Other: Voiding Method Urinal # Voids 1 Weight 61.689 kg - Constitutional General appearance: no acute distress, thin - EENT Eyes: anicteric sclerae, EOMI ENT: hearing grossly normal - Respiratory JASBIR diminished - Cardiovascular Rhythm: regular - Integumentary Integumentary: no cyanotic, no jaundiced - Psychiatric Psychiatric: A&O x's 3 Results CBC & Chem 7: 11/21/23 16:48 11/21/23 16:48 Labs: Abnormal Lab Results - Last 24 Hours (Table) 11/21/23 11/21/23 11/21/23 Range/Units 16:48 16:48 16:48 WBC 28.8 H (3.8-10.6) k/uL Hgb 10.9 L (13.0-17.5) gm/dL Hct 33.8 L (39.0-53.0) % MCV 78.1 L (80.0-100.0) fL Plt Count 822 H (150-450) k/uL Neutrophils # 17.7 H (1.3-7.7) k/uL Lymphocytes # 9.4 H (1.0-4.8) k/uL Monocytes # 1.1 H (0-1.0) k/uL INR 1.2 H (<1.2) Sodium 135 L (137-145) mmol/L Chloride 96 L (98-107) mmol/L Carbon Dioxide 32 H (22-30) mmol/L Creatinine 0.58 L (0.66-1.25) mg/dL Glucose 101 H (74-99) mg/dL Alkaline Phosphatase 144 H (38-126) U/L Albumin 3.2 L (3.5-5.0) g/dL Chest x-ray: report reviewed CT scan - abdomen: report reviewed CT scan - chest: report reviewed CT scan - pelvis: report reviewed Assessment and Plan (1) CLL (chronic lymphocytic leukemia) Current Visit: Yes Status: Acute Priority: High Code(s): C91.10 - CHRONIC LYMPHOCYTIC LEUK OF B-CELL TYPE NOT ACHIEVE REMIS SNOMED Code(s): 58049533 (2) Pneumonia Current Visit: Yes Status: Acute Priority: High Code(s): J18.9 - PNEUMONIA, UNSPECIFIED ORGANISM SNOMED Code(s): 002963785 Plan: Pneumonia: Patient has been experiencing chills, SOB, productive cough with while/yellow/green sputum, and night sweats. Patient was evaluated in clinic and labs appeared to show significant inflammatory change which would explain the neutrophilia and the thrombocytosis. Sedimentation rate was greater than 130. CT scan of the chest abdomen and pelvis showed significant areas of consolidation in the right lung, with associated necrosis and air bronchograms. Underlying mass causing obstruction, was not ruled out. He was advised his CBC changes appear to be due to the major inflammatory process involving the right lung, with likely infection, he was thus referred to the hospital to be treated with IV antibiotics and to have further workup with pulmonary medicine. -Chest x-ray showed severe pneumonia right upper and midlung, given the persistence, underlying abscess not excluded. -IV antibiotics started with azithromycin and Zosyn. Viral panel negative. Blood and sputum culture pending. -Pulmonology following. Plan for now is to continue on IV abx and pending clinical course, may consider bronchoscopy -Immunoglobulins ordered, if IgG low, will order IVIG for immune support CLL: -Oncology history and plan as dictated in the HPI -Patient has been in observation with stable disease, not currently on treatment -Continue in outpt f/u and observation
[2023-11-22] MEDS: hydrOXYzine HCL 25 MG TAB PO SCH (21:48)
--- NOTE | 2023-11-23 09:14 | P.PN ---
Subjective Progress Note Date: 11/23/23 Jessica Pathak, is a 68-year-old male who presented to [facility] emergency room with a chief complaint of worsening shortness of breath, and a new 3.2 cm mass or focal consolidation with ill-defined margins in the right lower lobe on recent CT scan of the chest. Patient has a known history of chronic lymphocytic leukemia followed by oncology he also has a known history of Parkinson disease and history of bronchiectasis, he had a previous history of right lower lobe pleural-based pulmonary nodule followed by pulmonary as outpatient. He was evaluated in the emergency room vital examination on presentation revealed a temperature of 98.6 pulse 98 respirations 16 blood pressure 105/67 pulse ox 93% on room air Laboratory data revealed a white blood count of 28.8 hemoglobin 10.9 platelet count 822 BUN 19 creatinine 0.59 Testing in the emergency room revealed Patient was admitted to medical floor for further evaluation and treatment On 11/23/2023 patient is alert and oriented x 3. Patient reports improvement with shortness of breath but does report he does get short of breath with activity. Patient margaux on antibiotics azithromycin and Zosyn. Possible plans for bronchoscopy today per pulmonary. At this time patient denies chest pain or shortness of breath. Patient denies nausea vomiting or diarrhea. Patient denies any urinary burning or frequency. Current vital signs temp 97.7, heart rate 84, respiratory rate 16, blood pressure 117/74 with a pulse ox of 97% on room air Objective - Vital Signs Vital signs: Vital Signs Temp 97.7 F 11/23/23 07:58 Pulse 84 11/23/23 07:58 Resp 16 11/23/23 07:58 BP 117/74 11/23/23 07:58 Pulse Ox 97 11/23/23 07:58 FiO2 Intake & Output 11/22/23 11/23/23 11/23/23 18:59 06:59 18:59 Intake Total 840 1790 Output Total 800 420 250 Balance 40 1370 -250 Weight 61.689 kg Intake: Intake, IV Titration 1200 Amount Piperacillin-Tazobactam 3 100 .375 gm In Sodium Chloride 0.9% 100 ml @ 25 mls/hr IVPB Q8H FELIPE Rx#: [id number] Sodium Chloride 0.9% 1, 1100 000 ml @ 100 mls/hr IV . Q10H FELIPE Rx#:[id number] Oral 840 590 Output: Urine 800 420 250 Other: Voiding Method Urinal Urinal Urinal # Voids 2 - Exam In general patient is alert and oriented x 3 in no distress HEENT head normocephalic and atraumatic Neck is supple no JVD no goiter no lymphadenopathy no carotid bruit Chest examination reveals a scattered crackles bilaterally no wheezing Cardiac exam reveals regular heart sounds S1 and S2 no gallops no murmurs Abdomen is soft nontender no organomegaly with normal bowel sounds Extremity exam reveals no edema no cyanosis or clubbing Neurological examination reveals no gross focal deficits - Labs CBC & Chem 7: 11/21/23 16:48 11/21/23 16:48 Labs: Abnormal Lab Results - Last 24 Hours (Table) 11/22/23 Range/Units 11:24 IgA 458.0 H (60.0-350.0) mg/dL Microbiology - Last 24 Hours (Table) 11/21/23 19:35 Blood Culture - Preliminary Blood 11/22/23 00:31 Gram Stain - Preliminary Sputum Assessment and Plan Assessment: Right lower lobe and right upper lobe consolidation opacities on recent CT scan done as outpatient, patient is admitted to medical floor pulmonary consultation was requested Underlying history of chronic lymphocytic leukemia Underlying history of Parkinson disease Underlying history of bronchiectasis Underlying history of chronic dysphagia Underlying history of right lower lobe pulmonary nodule At this time patient is admitted to medical floor Home medications reviewed and reordered Pulmonary consultation was requested Oncology services following Will follow closely
[2023-11-23 09:26] LABS: Basophils # (A) 0.1 k/uL (0-0.2); Basophils % (A) 0 %; Eosinophils # (A) 0.2 k/uL (0-0.7); Eosinophils % (A) 1 %; HCT 30.6 % (39.0-53.0); HGB 9.5 gm/dL (13.0-17.5); Hypochromasia Moderate; Lymphocytes # (A) 10.4 k/uL (1.0-4.8); Lymphocytes % (A) 43 %; MCH 24.7 pg (25.0-35.0); MCV 79.5 fL (80.0-100.0); Mean Platelet Volume 7.3; Monocytes # (A) 0.6 k/uL (0-1.0); Monocytes % (A) 3 %; Neutrophils # (A) 12.6 k/uL (1.3-7.7); Neutrophils % (A) 52 %; Platelet Count 706 k/uL (150-450); RBC 3.85 m/uL (4.30-5.90); RDW 15.1 % (11.5-15.5); WBC 24.3 k/uL (3.8-10.6)
[2023-11-23 11:44] LABS: Rouleaux Present
[2023-11-23] MEDS: LORATADINE 10 MG TAB PO SCH (12:31)
[2023-11-23] MEDS: CHOLECALCIFEROL 125 MCG (5000 IU) TABLET PO SCH (12:31)
[2023-11-23] MEDS: MONTELUKAST 10 MG TAB PO SCH (12:31)
--- NOTE | 2023-11-23 13:18 | P.PN ---
Subjective Progress Note Date: 11/23/23 Principal diagnosis: Pneumonia. Patient is a 68-year-old male with past medical history significant for lung nodules, bronchiectasis, Parkinson's disease, CLL. Patient follows in the pulmonary office with Dr. Morocho. Had a previous right lower lobe peripheral based nodule. PET scan done in 2019 concerning for inflammatory process. This was followed outpatient. Patient had a more recent outpatient CT of the chest demonstrating right lower and upper lobe lung consolidation/mass like opacities. He was directed to the emergency department by his oncologist, Dr. Hebert. It donna ears the patient has a 3.2 cm mass or focal parenchymal consolidation with ill- defined margins in the right lower lobe. The center of the mass is hypodense possibly indicating necrosis. There is a large area of consolidated opacity with air bronchograms and areas of decreased density in the right upper lobe. Findings are suspicious for neoplasm or inflammatory process with early abscess development. Incidental hiatal hernia noted. CBC: WBC count 28.8, hemoglobin 10.9, hematocrit 33.8, platelets 822. CMP: Sodium 135, potassium 4.8, chloride 96, serum bicarb 32, BUN 19, creatinine 0.58, glucose 101. Lactic 1.1. Normal saline infusing at 100 mL/h LFTs unremarkable. Troponin less than 0.012. NT proBNP 376. Negative for influenza, RSV, COVID. Currently, the patient is covered on empiric antibiotics. Procalcitonin level pending. Afebrile. Currently resting comfortably on room air. SpO2 94%. Nontoxic appearance. Over the last 2 weeks the patient has had a congested cough with green sputum production. Sputum is foul tasting. No hemoptysis. There is associated right sided thoracic level back pain. He denies any fevers or chills. He has had an approximately 18 pound weight loss over the last couple months. He has been very fatigued over the last couple weeks. No smoking history. Patient does have Parkinson's disease, and normally ambulates with walker. Occasionally has issues swallowing. Food gets stuck in his throat. Frequently coughs after eating. No dental infections. Denies drug or alcohol use. Progress note dated November 23, 2023. The patient is seen today in room 529. The patient feels better. Less short of breath. He is coughing, but not producing any phlegm. Cultures are thus far negative. Procalcitonin level was 0.16. He continues on azithromycin and Zosyn. Current labs include a white count of 24.3, hemoglobin 9.5, hematocrit 30.6, and a platelet count of 706,000. Cultures are thus far negative. Objective - Vital Signs Vital signs: Vital Signs Temp 97.7 F 11/23/23 07:58 Pulse 84 11/23/23 07:58 Resp 16 11/23/23 07:58 BP 117/74 11/23/23 07:58 Pulse Ox 97 11/23/23 07:58 FiO2 Intake & Output 11/22/23 11/23/23 11/23/23 18:59 06:59 18:59 Intake Total 840 1790 Output Total 800 420 250 Balance 40 1370 -250 Weight 61.689 kg Intake: Intake, IV Titration 1200 Amount Piperacillin-Tazobactam 3 100 .375 gm In Sodium Chloride 0.9% 100 ml @ 25 mls/hr IVPB Q8H FELIPE Rx#: [id number] Sodium Chloride 0.9% 1, 1100 000 ml @ 100 mls/hr IV . Q10H FELIPE Rx#:[id number] Oral 840 590 Output: Urine 800 420 250 Other: Voiding Method Urinal Urinal Urinal # Voids 2 1 # Bowel Movements 1 - Exam No acute distress, oriented 3. No supplemental oxygen. Room air saturation 97%. HEENT examination is grossly unremarkable. Mucous membranes are moist. No oral lesions. Neck supple. Full range of motion. No adenopathy thyromegaly or neck vein distention. Cardiovascular examination reveals regular rhythm rate. S1-S2 normal. No S3 or S4. No discernible murmur noted. Lungs reveal scattered mild rhonchi. No wheezes or crackles. Breath sounds equal. Abdomen soft bowel sounds are heard. No masses or tenderness. Extremities are intact. No cyanosis clubbing or edema. Skin is without rash or lesion. Neurologic examination is brief but nonfocal. - Labs CBC & Chem 7: 11/23/23 09:00 11/21/23 16:48 Labs: Abnormal Lab Results - Last 24 Hours (Table) 11/22/23 11/23/23 Range/Units 11:24 09:00 WBC 24.3 H (3.8-10.6) k/uL RBC 3.85 L (4.30-5.90) m/uL Hgb 9.5 L (13.0-17.5) gm/dL Hct 30.6 L (39.0-53.0) % MCV 79.5 L (80.0-100.0) fL MCH 24.7 L (25.0-35.0) pg Plt Count 706 H (150-450) k/uL Neutrophils # 12.6 H (1.3-7.7) k/uL Lymphocytes # 10.4 H (1.0-4.8) k/uL IgA 458.0 H (60.0-350.0) mg/dL Microbiology - Last 24 Hours (Table) 11/22/23 00:31 Gram Stain - Preliminary Sputum Sputum Culture - Preliminary 11/21/23 19:35 Blood Culture - Preliminary Blood Assessment and Plan Assessment: Right lower and upper lobe lung consolidation/masslike opacities, differential includes infectious process with early abscess or malignancy. Chronic leukocytosis. History of CLL. Hiatal hernia. History of a Parkinson's disease. Chronic dysphagia. History of acquired bronchiectasis. History of right lower lobe pleural-based pulmonary nodule. Plan: Plan dated November 23, 2023. The patient is seen this morning in room 529. He is not requiring any supplemental oxygen. His saturations are excellent. Cultures are negative. Procalcitonin level was in the normal range at 0.16. He continues on azithromycin and Zosyn. Clinically he is feeling better. He is not coughing up near as much phlegm as he did a couple days ago. We will continue to follow make recommendations. Time with Patient: Less than 30
[2023-11-23 15:19] LABS: ALT <5 U/L (10-49); AST 17 U/L (14-35); Albumin 2.8 g/dL (3.8-4.9); Alkaline Phosphatase 124 U/L (41-126); Blood Urea Nitrogen 11.2 mg/dL (9.0-27.0); Calcium 8.8 mg/dL (8.7-10.3); Chloride 101 mmol/L (96-109); Globulin 2.8 g/dL (1.6-3.3); Glucose 89 mg/dL (70-110); Potassium 4.7 mmol/L (3.5-5.5); Sodium 136 mmol/L (135-145); Total Bilirubin 0.3 mg/dL (0.3-1.2); Total Protein 5.6 g/dL (6.2-8.2)
--- NOTE | 2023-11-23 15:22 | P.PN ---
Subjective Progress Note Date: 11/23/23 No acute events. Reporting improvement in breathing and weakness. Pt afebrile, SPO2 97%, WBC 24.3, hgb 9.5 Objective - Vital Signs Vital signs: Vital Signs Temp 97.4 F L 11/23/23 13:47 Pulse 91 11/23/23 13:47 Resp 16 11/23/23 13:47 BP 112/71 11/23/23 13:47 Pulse Ox 96 11/23/23 13:47 FiO2 Intake & Output 11/22/23 11/23/23 11/23/23 18:59 06:59 18:59 Intake Total 840 1790 Output Total 800 420 250 Balance 40 1370 -250 Weight 61.689 kg Intake: Intake, IV Titration 1200 Amount Piperacillin-Tazobactam 3 100 .375 gm In Sodium Chloride 0.9% 100 ml @ 25 mls/hr IVPB Q8H FELIPE Rx#: [id number] Sodium Chloride 0.9% 1, 1100 000 ml @ 100 mls/hr IV . Q10H FELIPE Rx#:[id number] Oral 840 590 Output: Urine 800 420 250 Other: Voiding Method Urinal Urinal Urinal # Voids 2 1 # Bowel Movements 1 - Constitutional General appearance: Present: no acute distress - EENT Eyes: Present: anicteric sclerae, EOMI ENT: Present: hearing grossly normal - Respiratory Details: breathing is even and unlabored - Cardiovascular Details: skin warm and dry - Integumentary Integumentary: Absent: cyanotic - Musculoskeletal Musculoskeletal: Present: strength equal bilaterally - Psychiatric Psychiatric: Present: A&O x's 3 - Labs CBC & Chem 7: 11/23/23 09:00 11/21/23 16:48 Labs: Abnormal Lab Results - Last 24 Hours (Table) 11/22/23 11/23/23 Range/Units 11:24 09:00 WBC 24.3 H (3.8-10.6) k/uL RBC 3.85 L (4.30-5.90) m/uL Hgb 9.5 L (13.0-17.5) gm/dL Hct 30.6 L (39.0-53.0) % MCV 79.5 L (80.0-100.0) fL MCH 24.7 L (25.0-35.0) pg Plt Count 706 H (150-450) k/uL Neutrophils # 12.6 H (1.3-7.7) k/uL Lymphocytes # 10.4 H (1.0-4.8) k/uL IgA 458.0 H (60.0-350.0) mg/dL Microbiology - Last 24 Hours (Table) 11/22/23 00:31 Gram Stain - Preliminary Sputum Sputum Culture - Preliminary 11/21/23 19:35 Blood Culture - Preliminary Blood Assessment and Plan (1) CLL (chronic lymphocytic leukemia) Current Visit: Yes Status: Acute Priority: High Code(s): C91.10 - CHRONIC LYMPHOCYTIC LEUK OF B-CELL TYPE NOT ACHIEVE REMIS SNOMED Code(s): 94332773 (2) Pneumonia Current Visit: Yes Status: Acute Priority: High Code(s): J18.9 - PNEUMONIA, UNSPECIFIED ORGANISM SNOMED Code(s): 494128374 Plan: Pneumonia: Patient has been experiencing chills, SOB, productive cough with while/yellow/green sputum, and night sweats. Patient was evaluated in clinic and labs appeared to show significant inflammatory change which would explain the neutrophilia and the thrombocytosis. Sedimentation rate was greater than 130. CT scan of the chest abdomen and pelvis showed significant areas of consolidation in the right lung, with associated necrosis and air bronchograms. Underlying mass causing obstruction, was not ruled out. He was advised his CBC changes appear to be due to the major inflammatory process involving the right lung, with likely infection, he was thus referred to the hospital to be treated with IV antibiotics and to have further workup with pulmonary medicine. -Chest x-ray showed severe pneumonia right upper and midlung, given the persistence, underlying abscess not excluded. -IV antibiotics started with azithromycin and Zosyn. Viral panel negative. Blood culture negative thus far, sputum culture pending. -Pulmonology following. Plan for now is to continue on IV abx and pending clinical course, may consider bronchoscopy. Repeat CXR stable from prior -Immunoglobulins ordered. IgG 903, no IVIG needed at this time CLL: -Oncology history and plan as dictated in the HPI -Patient has been in observation with stable disease, not currently on treatment -Continue in outpt f/u and observation
[2023-11-23] MEDS ORDERED: NON FORMULARY DRUG (Hydroxyzine Hcl [Atarax] 50 MG Tablet) PO SCH (21:00)
--- NOTE | 2023-11-24 06:56 | P.PN ---
Subjective Progress Note Date: 11/24/23 Principal diagnosis: Pneumonia. Patient is a 68-year-old male with past medical history significant for lung nodules, bronchiectasis, Parkinson's disease, CLL. Patient follows in the pulmonary office with Dr. Morocho. Had a previous right lower lobe peripheral based nodule. PET scan done in 2019 concerning for inflammatory process. This was followed outpatient. Patient had a more recent outpatient CT of the chest demonstrating right lower and upper lobe lung consolidation/mass like opacities. He was directed to the emergency department by his oncologist, Dr. Hebert. It donna ears the patient has a 3.2 cm mass or focal parenchymal consolidation with ill- defined margins in the right lower lobe. The center of the mass is hypodense possibly indicating necrosis. There is a large area of consolidated opacity with air bronchograms and areas of decreased density in the right upper lobe. Findings are suspicious for neoplasm or inflammatory process with early abscess development. Incidental hiatal hernia noted. CBC: WBC count 28.8, hemoglobin 10.9, hematocrit 33.8, platelets 822. CMP: Sodium 135, potassium 4.8, chloride 96, serum bicarb 32, BUN 19, creatinine 0.58, glucose 101. Lactic 1.1. Normal saline infusing at 100 mL/h LFTs unremarkable. Troponin less than 0.012. NT proBNP 376. Negative for influenza, RSV, COVID. Currently, the patient is covered on empiric antibiotics. Procalcitonin level pending. Afebrile. Currently resting comfortably on room air. SpO2 94%. Nontoxic appearance. Over the last 2 weeks the patient has had a congested cough with green sputum production. Sputum is foul tasting. No hemoptysis. There is associated right sided thoracic level back pain. He denies any fevers or chills. He has had an approximately 18 pound weight loss over the last couple months. He has been very fatigued over the last couple weeks. No smoking history. Patient does have Parkinson's disease, and normally ambulates with walker. Occasionally has issues swallowing. Food gets stuck in his throat. Frequently coughs after eating. No dental infections. Denies drug or alcohol use. Progress note dated November 23, 2023. The patient is seen today in room 529. The patient feels better. Less short of breath. He is coughing, but not producing any phlegm. Cultures are thus far negative. Procalcitonin level was 0.16. He continues on azithromycin and Zosyn. Current labs include a white count of 24.3, hemoglobin 9.5, hematocrit 30.6, and a platelet count of 706,000. Cultures are thus far negative. Progress note dated November 24, 2023. The patient is seen this morning in room 529. The patient is on room air. Saturations are 95%. He is getting saline at 100 cc an hour. He continues on Zosyn. The patient had an uneventful night. He states that he is feeling better. He is coughing less, and producing less phlegm. No chest pain or chest discomfort. No fever or chills. No new labs today. Objective - Vital Signs Vital signs: Vital Signs Temp 98.1 F 11/24/23 02:00 Pulse 87 11/24/23 02:00 Resp 16 11/24/23 02:00 BP 101/64 11/24/23 02:00 Pulse Ox 95 11/24/23 02:00 FiO2 Intake & Output 11/23/23 11/23/23 11/24/23 06:59 18:59 06:59 Intake Total 1790 1080 1890 Output Total 420 250 900 Balance 1370 830 990 Intake: Intake, IV Titration 1200 1300 Amount Piperacillin-Tazobactam 3 100 100 .375 gm In Sodium Chloride 0.9% 100 ml @ 25 mls/hr IVPB Q8H FELIPE Rx#: [id number] Sodium Chloride 0.9% 1, 1100 1200 000 ml @ 100 mls/hr IV . Q10H FELIPE Rx#:[id number] Oral 590 1080 590 Output: Urine 420 250 900 Other: Voiding Method Urinal Urinal Urinal # Voids 2 2 # Bowel Movements 1 - Exam No acute distress, oriented 3. No supplemental oxygen. Room air saturation 95 %. HEENT examination is grossly unremarkable. Mucous membranes are moist. No oral lesions. Neck supple. Full range of motion. No adenopathy thyromegaly or neck vein distention. Cardiovascular examination reveals regular rhythm rate. S1-S2 normal. No S3 or S4. No discernible murmur noted. Heart rate 87 bpm. Lungs reveal scattered mild rhonchi. No wheezes or crackles. Breath sounds equal. Abdomen soft bowel sounds are heard. No masses or tenderness. Extremities are intact. No cyanosis clubbing or edema. Skin is without rash or lesion. Neurologic examination is brief but nonfocal. - Labs CBC & Chem 7: 11/23/23 09:00 11/23/23 09:00 Labs: Abnormal Lab Results - Last 24 Hours (Table) 11/23/23 11/23/23 Range/Units 09:00 09:00 WBC 24.3 H (3.8-10.6) k/uL RBC 3.85 L (4.30-5.90) m/uL Hgb 9.5 L (13.0-17.5) gm/dL Hct 30.6 L (39.0-53.0) % MCV 79.5 L (80.0-100.0) fL MCH 24.7 L (25.0-35.0) pg Plt Count 706 H (150-450) k/uL Neutrophils # 12.6 H (1.3-7.7) k/uL Lymphocytes # 10.4 H (1.0-4.8) k/uL Creatinine 0.5 L (0.6-1.5) mg/dL BUN/Creatinine Ratio 22.40 H (12.00-20.00) Ratio ALT <5 L (10-49) U/L Total Protein 5.6 L (6.2-8.2) g/dL Albumin 2.8 L (3.8-4.9) g/dL Albumin/Globulin Ratio 1.00 L (1.60-3.17) Ratio Microbiology - Last 24 Hours (Table) 11/21/23 19:35 Blood Culture - Preliminary Blood 11/22/23 00:31 Gram Stain - Preliminary Sputum Sputum Culture - Preliminary Assessment and Plan Assessment: Right lower and upper lobe lung consolidation/masslike opacities, differential includes infectious process with early abscess or malignancy. Chronic leukocytosis. History of CLL. Hiatal hernia. History of a Parkinson's disease. Chronic dysphagia. History of acquired bronchiectasis. History of right lower lobe pleural-based pulmonary nodule. Plan: Plan dated November 23, 2023. The patient is seen this morning in room 529. He is not requiring any supplemental oxygen. His saturations are excellent. Cultures are negative. Procalcitonin level was in the normal range at 0.16. He continues on azithromycin and Zosyn. Clinically he is feeling better. He is not coughing up near as much phlegm as he did a couple days ago. We will continue to follow make recommendations. Plan dated November 24, 2023. The patient continues to feel better each day. He is currently on room air. Saturations are 95 to 96%. He is getting saline at 100 cc an hour. He continues on Zosyn. Culture data is thus far negative. We will continue to follow make recommendations along the way. Prognosis is guarded. Time with Patient: Less than 30
[2023-11-24 09:16] LABS: HCT 27.1 % (39.6-50.0); HGB 8.2 g/dL (13.0-17.0); MCH 23.6 pg (27.0-32.0); MCHC 30.3 g/dL (32.0-37.0); MCV 77.9 FL (80.0-97.0); Mean Platelet Volume 9.8 FL (9.5-12.2); NRBC Per 100 WBC 0 X 10*3/uL (0.00-0.01); Platelet Count 705 X 10*3/uL (140-440); RBC 3.48 X 10*6/uL (4.40-5.60); RDW 16.1 % (11.5-14.5); WBC 25.02 X 10*3/uL (4.50-10.00)
[2023-11-24 09:45] LABS: ALT <5 U/L (10-49); AST 16 U/L (14-35); Albumin 2.6 g/dL (3.8-4.9); Albumin/Globulin Ratio 1.04 Ratio (1.60-3.17); Alkaline Phosphatase 106 U/L (41-126); Blood Urea Nitrogen 11.2 mg/dL (9.0-27.0); Calcium 8.6 mg/dL (8.7-10.3); Carbon Dioxide 25.1 mmol/L (21.6-31.8); Chloride 100 mmol/L (96-109); Globulin 2.5 g/dL (1.6-3.3); Glucose 87 mg/dL (70-110); Potassium 4.6 mmol/L (3.5-5.5); Sodium 135 mmol/L (135-145); Total Bilirubin <0.2 mg/dL (0.3-1.2); Total Protein 5.1 g/dL (6.2-8.2)
[2023-11-24 11:01] LABS: Basophils # (M) 0 X 10*3/uL (0.00-0.10); Eosinophils # (M) 0.25 X 10*3/uL (0.04-0.35); Lymphocytes # (M) 13.26 X 10*3/uL (0.90-5.00); Monocytes # (M) 0.75 X 10*3/uL (0.20-1.00); Neutrophils # (M) 10.76 X 10*3/uL (1.80-7.70); Neutrophils % (M) 43 %
--- NOTE | 2023-11-24 13:06 | P.PN ---
Subjective Progress Note Date: 11/24/23 Jessica Pathak, is a 68-year-old male who presented to [facility] emergency room with a chief complaint of worsening shortness of breath, and a new 3.2 cm mass or focal consolidation with ill-defined margins in the right lower lobe on recent CT scan of the chest. Patient has a known history of chronic lymphocytic leukemia followed by oncology he also has a known history of Parkinson disease and history of bronchiectasis, he had a previous history of right lower lobe pleural-based pulmonary nodule followed by pulmonary as outpatient. He was evaluated in the emergency room vital examination on presentation revealed a temperature of 98.6 pulse 98 respirations 16 blood pressure 105/67 pulse ox 93% on room air Laboratory data revealed a white blood count of 28.8 hemoglobin 10.9 platelet count 822 BUN 19 creatinine 0.59 Testing in the emergency room revealed Patient was admitted to medical floor for further evaluation and treatment On 11/23/2023 patient is alert and oriented x 3. Patient reports improvement with shortness of breath but does report he does get short of breath with activity. Patient margaux on antibiotics azithromycin and Zosyn. Possible plans for bronchoscopy today per pulmonary. At this time patient denies chest pain or shortness of breath. Patient denies nausea vomiting or diarrhea. Patient denies any urinary burning or frequency. Current vital signs temp 97.7, heart rate 84, respiratory rate 16, blood pressure 117/74 with a pulse ox of 97% on room air. On 11/24/2023 patient was seen and examined on the medical floor he is alert and oriented x 3 in no apparent distress there is no fever or chills no headache or dizziness he is still having some cough and shortness of breath with activity otherwise he denies any complaints there is no fever or chills no headache or dizziness no chest pain no nausea or vomiting no abdominal pain no diarrhea and no urinary symptoms. At this time we will continue with IV antibiotics, decrease IV fluid, will continue to follow closely. Objective - Vital Signs Vital signs: Vital Signs Temp 97.7 F 11/24/23 07:11 Pulse 80 11/24/23 07:11 Resp 16 11/24/23 07:11 BP 109/70 11/24/23 07:11 Pulse Ox 96 11/24/23 07:11 FiO2 Intake & Output 11/23/23 11/24/2324 18:59 06:59 18:59 Intake Total 1080 1890 Output Total 250 900 Balance 830 990 Intake: Intake, IV Titration 1300 Amount Piperacillin-Tazobactam 3 100 .375 gm In Sodium Chloride 0.9% 100 ml @ 25 mls/hr IVPB Q8H [facility] Rx#: [id number] Sodium Chloride 0.9% 1, 1200 000 ml @ 100 mls/hr IV . Q10H [facility] Rx#:[id number] Oral 1080 590 Output: Urine 250 900 Other: Voiding Method Urinal Urinal # Voids 2 # Bowel Movements 1 - Exam In general patient is alert and oriented x 3 in no distress HEENT head normocephalic and atraumatic Neck is supple no JVD no goiter no lymphadenopathy no carotid bruit Chest examination is clear to auscultation no crackles no wheezing Cardiac exam reveals regular heart sounds S1 and S2 no gallops no murmurs Abdomen is soft nontender no organomegaly with normal bowel sounds Extremity exam reveals no edema no cyanosis or clubbing Neurological examination reveals no gross focal deficits - Labs CBC & Chem 7: 11/24/23 03:20 11/24/23 03:20 Labs: Abnormal Lab Results - Last 24 Hours (Table) 11/23/23 11/23/23 11/24/23 Range/Units 09:00 09:00 03:20 WBC 25.02 H (4.50-10.00) X 10*3/uL RBC 3.48 L (4.40-5.60) X 10*6/uL Hgb 8.2 L (13.0-17.0) g/dL Hct 27.1 L (39.6-50.0) % MCV 77.9 L (80.0-97.0) FL MCH 23.6 L (27.0-32.0) pg MCHC 30.3 L (32.0-37.0) g/dL RDW 16.1 H (11.5-14.5) % Plt Count 705 H (140-440) X 10*3/uL Neutrophils # 12.6 H (1.3-7.7) k/uL Lymphocytes # 10.4 H (1.0-4.8) k/uL Creatinine 0.5 L (0.6-1.5) mg/dL BUN/Creatinine Ratio 22.40 H (12.00-20.00) Ratio Calcium (8.7-10.3) mg/dL Total Bilirubin (0.3-1.2) mg/dL ALT <5 L (10-49) U/L Total Protein 5.6 L (6.2-8.2) g/dL Albumin 2.8 L (3.8-4.9) g/dL Albumin/Globulin Ratio 1.00 L (1.60-3.17) Ratio 11/24/23 Range/Units 03:20 WBC (4.50-10.00) X 10*3/uL RBC (4.40-5.60) X 10*6/uL Hgb (13.0-17.0) g/dL Hct (39.6-50.0) % MCV (80.0-97.0) FL MCH (27.0-32.0) pg MCHC (32.0-37.0) g/dL RDW (11.5-14.5) % Plt Count (140-440) X 10*3/uL Neutrophils # (1.3-7.7) k/uL Lymphocytes # (1.0-4.8) k/uL Creatinine 0.4 L (0.6-1.5) mg/dL BUN/Creatinine Ratio 28.00 H (12.00-20.00) Ratio Calcium 8.6 L (8.7-10.3) mg/dL Total Bilirubin <0.2 L (0.3-1.2) mg/dL ALT <5 L (10-49) U/L Total Protein 5.1 L (6.2-8.2) g/dL Albumin 2.6 L (3.8-4.9) g/dL Albumin/Globulin Ratio 1.04 L (1.60-3.17) Ratio Microbiology - Last 24 Hours (Table) 11/21/23 19:35 Blood Culture - Preliminary Blood 11/22/23 00:31 Gram Stain - Preliminary Sputum Sputum Culture - Preliminary Assessment and Plan Plan: Right lower lobe and right upper lobe consolidation opacities on recent CT scan done as outpatient, patient is admitted to medical floor pulmonary consultation was requested Underlying history of chronic lymphocytic leukemia Underlying history of Parkinson disease Underlying history of bronchiectasis Underlying history of chronic dysphagia Underlying history of right lower lobe pulmonary nodule At this time patient is admitted to medical floor Home medications reviewed and reordered Pulmonary consultation was requested Will follow closely
[2023-11-25 10:04] LABS: ALT <5 U/L (10-49); AST 16 U/L (14-35); Albumin 2.7 g/dL (3.8-4.9); Albumin/Globulin Ratio 1.04 Ratio (1.60-3.17); Alkaline Phosphatase 110 U/L (41-126); Blood Urea Nitrogen 9.3 mg/dL (9.0-27.0); Calcium 8.7 mg/dL (8.7-10.3); Carbon Dioxide 27.2 mmol/L (21.6-31.8); Chloride 99 mmol/L (96-109); Globulin 2.6 g/dL (1.6-3.3); Glucose 85 mg/dL (70-110); Potassium 4.5 mmol/L (3.5-5.5); Sodium 136 mmol/L (135-145); Total Bilirubin 0.2 mg/dL (0.3-1.2); Total Protein 5.3 g/dL (6.2-8.2)
--- NOTE | 2023-11-25 10:07 | XR ---
EXAMINATION TYPE: XR chest 2V DATE OF EXAM: 11/25/2023 COMPARISON: 11/22/2023 INDICATION: Pneumonia TECHNIQUE: Frontal and lateral views of the chest are obtained. FINDINGS: The heart size is normal. The pulmonary vasculature is normal. There is a large consolidation right upper lobe. Findings appear similar to comparison. Follow-up to clearing is recommended. Underlying mass is not excluded.. IMPRESSION: 1. Right upper lobe consolidation. Correlate for pneumonia. [facility], , 11/25/2023 10:05 AM
--- NOTE | 2023-11-25 10:16 | P.PN ---
Subjective Progress Note Date: 11/25/23 Jessica Pathak, is a 68-year-old male who presented to [facility] emergency room with a chief complaint of worsening shortness of breath, and a new 3.2 cm mass or focal consolidation with ill-defined margins in the right lower lobe on recent CT scan of the chest. Patient has a known history of chronic lymphocytic leukemia followed by oncology he also has a known history of Parkinson disease and history of bronchiectasis, he had a previous history of right lower lobe pleural-based pulmonary nodule followed by pulmonary as outpatient. He was evaluated in the emergency room vital examination on presentation revealed a temperature of 98.6 pulse 98 respirations 16 blood pressure 105/67 p ulse ox 93% on room air Laboratory data revealed a white blood count of 28.8 hemoglobin 10.9 platelet count 822 BUN 19 creatinine 0.59 Testing in the emergency room revealed Patient was admitted to medical floor for further evaluation and treatment On 11/23/2023 patient is alert and oriented x 3. Patient reports improvement with shortness of breath but does report he does get short of breath with activity. Patient margaux on antibiotics azithromycin and Zosyn. Possible plans for bronchoscopy today per pulmonary. At this time patient denies chest pain or shortness of breath. Patient denies nausea vomiting or diarrhea. Patient denies any urinary burning or frequency. Current vital signs temp 97.7, heart rate 84, respiratory rate 16, blood pressure 117/74 with a pulse ox of 97% on room air. On 11/24/2023 patient was seen and examined on the medical floor he is alert and oriented x 3 in no apparent distress there is no fever or chills no headache or dizziness he is still having some cough and shortness of breath with activity otherwise he denies any complaints there is no fever or chills no headache or dizziness no chest pain no nausea or vomiting no abdominal pain no diarrhea and no urinary symptoms. At this time we will continue with IV antibiotics, decrease IV fluid, will continue to follow closely. On 11/25/2023 patient is alert and oriented x 3. Patient reports improvement with cough and shortness of breath. Patient remains on IV Zosyn. White blood cell remains elevated despite antibiotic treatment will consult infectious disease services. Family at bedside family expresses concerns about wanting bronchoscopy completed during hospital stay. Will await further recommendations from pulmonary services. Repeat chest x-ray has been ordered this a.m. All questions answered. Patient denies chest pain or shortness of breath. Patient denies nausea vomiting or diarrhea. Patient denies any urinary burning or frequency. Objective - Vital Signs Vital signs: Vital Signs Temp 97.5 F L 11/25/23 07:37 Pulse 81 11/25/23 08:45 Resp 17 11/25/23 08:45 BP 113/72 11/25/23 07:37 Pulse Ox 92 L 11/25/23 07:37 FiO2 Intake & Output 11/24/23 11/25/23 11/25/23 18:59 06:59 18:59 Intake Total 1080 1410 120 Output Total 900 Balance 1080 510 120 Weight 61.689 kg Intake: Intake, IV Titration 220 Amount Piperacillin-Tazobactam 3 100 .375 gm In Sodium Chloride 0.9% 100 ml @ 25 mls/hr IVPB Q8H [facility] Rx#: [id number] Sodium Chloride 0.9% 1, 120 000 ml @ 100 mls/hr IV . Q10H [facility] Rx#:[id number] Oral 1080 1190 120 Output: Urine 900 Other: Voiding Method Toilet Toilet Urinal Urinal # Voids 6 - Exam In general patient is alert and oriented x 3 in no distress HEENT head normocephalic and atraumatic Neck is supple no JVD no goiter no lymphadenopathy no carotid bruit Chest examination reveals a scattered crackles bilaterally no wheezing Cardiac exam reveals regular heart sounds S1 and S2 no gallops no murmurs Abdomen is soft nontender no organomegaly with normal bowel sounds Extremity exam reveals no edema no cyanosis or clubbing Neurological examination reveals no gross focal deficits - Labs CBC & Chem 7: 11/24/23 03:20 11/25/23 03:53 Labs: Abnormal Lab Results - Last 24 Hours (Table) 11/24/23 11/25/23 Range/Units 03:20 03:53 Neutrophils # (Manual) 10.76 H (1.80-7.70) X 10*3/uL Lymphocytes # (Manual) 13.26 H (0.90-5.00) X 10*3/uL Creatinine 0.5 L (0.6-1.5) mg/dL Total Bilirubin 0.2 L (0.3-1.2) mg/dL ALT <5 L (10-49) U/L Total Protein 5.3 L (6.2-8.2) g/dL Albumin 2.7 L (3.8-4.9) g/dL Albumin/Globulin Ratio 1.04 L (1.60-3.17) Ratio Microbiology - Last 24 Hours (Table) 11/21/23 19:35 Blood Culture - Preliminary Blood 11/22/23 00:31 Gram Stain - Final Sputum Sputum Culture - Final Assessment and Plan Assessment: Right lower lobe and right upper lobe consolidation opacities on recent CT scan done as outpatient, patient is admitted to medical floor pulmonary consultation was requested Underlying history of chronic lymphocytic leukemia Underlying history of Parkinson disease Underlying history of bronchiectasis Underlying history of chronic dysphagia Underlying history of right lower lobe pulmonary nodule At this time patient is admitted to medical floor Home medications reviewed and reordered Pulmonary consultation was requested Oncology services following Infectious disease services consulted Will follow closely
--- NOTE | 2023-11-25 13:20 | P.PN ---
Subjective Progress Note Date: 11/25/23 Principal diagnosis: Pneumonia. Patient is a 68-year-old male with past medical history significant for lung nodules, bronchiectasis, Parkinson's disease, CLL. Patient follows in the pulmonary office with Dr. Morocho. Had a previous right lower lobe peripheral based nodule. PET scan done in 2019 concerning for inflammatory process. This was followed outpatient. Patient had a more recent outpatient CT of the chest demonstrating right lower and upper lobe lung consolidation/mass like opacities. He was directed to the emergency department by his oncologist, Dr. Hebert. It donna ears the patient has a 3.2 cm mass or focal parenchymal consolidation with ill- defined margins in the right lower lobe. The center of the mass is hypodense possibly indicating necrosis. There is a large area of consolidated opacity with air bronchograms and areas of decreased density in the right upper lobe. Findings are suspicious for neoplasm or inflammatory process with early abscess development. Incidental hiatal hernia noted. CBC: WBC count 28.8, hemoglobin 10.9, hematocrit 33.8, platelets 822. CMP: Sodium 135, potassium 4.8, chloride 96, serum bicarb 32, BUN 19, creatinine 0.58, glucose 101. Lactic 1.1. Normal saline infusing at 100 mL/h LFTs unremarkable. Troponin less than 0.012. NT proBNP 376. Negative for influenza, RSV, COVID. Currently, the patient is covered on empiric antibiotics. Procalcitonin level pending. Afebrile. Currently resting comfortably on room air. SpO2 94%. Nontoxic appearance. Over the last 2 weeks the patient has had a congested cough with green sputum production. Sputum is foul tasting. No hemoptysis. There is associated right sided thoracic level back pain. He denies any fevers or chills. He has had an approximately 18 pound weight loss over the last couple months. He has been very fatigued over the last couple weeks. No smoking history. Patient does have Parkinson's disease, and normally ambulates with walker. Occasionally has issues swallowing. Food gets stuck in his throat. Frequently coughs after eating. No dental infections. Denies drug or alcohol use. Progress note dated November 23, 2023. The patient is seen today in room 529. The patient feels better. Less short of breath. He is coughing, but not producing any phlegm. Cultures are thus far negative. Procalcitonin level was 0.16. He continues on azithromycin and Zosyn. Current labs include a white count of 24.3, hemoglobin 9.5, hematocrit 30.6, and a platelet count of 706,000. Cultures are thus far negative. Progress note dated November 24, 2023. The patient is seen this morning in room 529. The patient is on room air. Saturations are 95%. He is getting saline at 100 cc an hour. He continues on Zosyn. The patient had an uneventful night. He states that he is feeling better. He is coughing less, and producing less phlegm. No chest pain or chest discomfort. No fever or chills. No new labs today. Progress note dated November 25, 2023. 68-year-old male seen today in room 529. He is currently on room air. He is on Zosyn. He feels much better. Repeat chest x-ray will be ordered. His is in the room with him, and states that the patient is doing better. We are currently treating him for possible infection, involving the right upper lobe. Current new laboratory includes a sodium 136, potassium 4.5, chloride 99, CO2 27, BUN 9, creatinine 0.5. Sputum and blood cultures are currently negative or pending. Repeat chest x-ray continues to show a consolidation/mass, right upper lobe. Objective - Vital Signs Vital signs: Vital Signs Temp 97.3 F L 11/25/23 12:34 Pulse 95 11/25/23 12:34 Resp 17 11/25/23 12:34 BP 128/79 11/25/23 12:34 Pulse Ox 94 L 11/25/23 12:34 FiO2 Intake & Output 11/24/23 11/25/23 11/25/23 18:59 06:59 18:59 Intake Total 1080 1410 120 Output Total 900 Balance 1080 510 120 Weight 61.689 kg Intake: Intake, IV Titration 220 Amount Piperacillin-Tazobactam 3 100 .375 gm In Sodium Chloride 0.9% 100 ml @ 25 mls/hr IVPB Q8H [facility] Rx#: [id number] Sodium Chloride 0.9% 1, 120 000 ml @ 100 mls/hr IV . Q10H [facility] Rx#:[id number] Oral 1080 1190 120 Output: Urine 900 Other: Voiding Method Toilet Toilet Urinal Urinal # Voids 6 - Exam No acute distress, oriented 3. No supplemental oxygen. Room air saturation 96 %. HEENT examination is grossly unremarkable. Mucous membranes are moist. No oral lesions. Neck supple. Full range of motion. No adenopathy thyromegaly or neck vein distention. Cardiovascular examination reveals regular rhythm rate. S1-S2 normal. No S3 or S4. No discernible murmur noted. Heart rate 91 bpm. Lungs reveal scattered mild rhonchi. No wheezes or crackles. Breath sounds equal. Abdomen soft bowel sounds are heard. No masses or tenderness. Extremities are intact. No cyanosis clubbing or edema. Skin is without rash or lesion. Neurologic examination is brief but nonfocal. - Labs CBC & Chem 7: 11/24/23 03:20 11/25/23 03:53 Labs: Abnormal Lab Results - Last 24 Hours (Table) 11/25/23 Range/Units 03:53 Creatinine 0.5 L (0.6-1.5) mg/dL Total Bilirubin 0.2 L (0.3-1.2) mg/dL ALT <5 L (10-49) U/L Total Protein 5.3 L (6.2-8.2) g/dL Albumin 2.7 L (3.8-4.9) g/dL Albumin/Globulin Ratio 1.04 L (1.60-3.17) Ratio Microbiology - Last 24 Hours (Table) 11/21/23 19:35 Blood Culture - Preliminary Blood 11/22/23 00:31 Gram Stain - Final Sputum Sputum Culture - Final Assessment and Plan Assessment: Right lower and upper lobe lung consolidation/masslike opacities, differential includes infectious process with early abscess or malignancy. Chronic leukocytosis. History of CLL. Hiatal hernia. History of a Parkinson's disease. Chronic dysphagia. History of acquired bronchiectasis. History of right lower lobe pleural-based pulmonary nodule. Plan: Plan dated November 23, 2023. The patient is seen this morning in room 529. He is not requiring any supplemental oxygen. His saturations are excellent. Cultures are negative. Procalcitonin level was in the normal range at 0.16. He continues on azithromycin and Zosyn. Clinically he is feeling better. He is not coughing up near as much phlegm as he did a couple days ago. We will continue to follow make recommendations. Plan dated November 24, 2023. The patient continues to feel better each day. He is currently on room air. Saturations are 95 to 96%. He is getting saline at 100 cc an hour. He continues on Zosyn. Culture data is thus far negative. We will continue to follow make recommendations along the way. Prognosis is guarded. Plan dated November 25, 2023. 68-year-old male with a history of mass/consolidation, right upper lobe. The patient continues on Zosyn. Clinically he is feeling better. The patient's repeat chest x-ray continues to show a mass/infiltrate, right upper lobe. When I was in the room seeing the patient, neither the patient nor the mention anything about bronchoscopy. Subsequently, I was called by the floor nurse, who states that the patient was to have a bronchoscopy, over the weekend. I knew nothing about this, and nothing was mentioned about this, prior to the phone call received from the floor nurse. I mentioned to her that it was unlikely the patient was to have an elective bronchoscopy, on Sunday or Sunday. I am not sure if this was mentioned to him by one of my partners, or, by the oncologist. Time with Patient: Less than 30
--- NOTE | 2023-11-25 13:22 | P.PN ---
Subjective Progress Note Date: 11/25/23 No acute events. Reporting improvement in breathing and weakness. Pt afebrile, SPO2 94% on room air. CXR showing stable findings. Continues on IV abx Objective - Vital Signs Vital signs: Vital Signs Temp 97.5 F L 11/25/23 07:37 Pulse 81 11/25/23 08:45 Resp 17 11/25/23 08:45 BP 113/72 11/25/23 07:37 Pulse Ox 92 L 11/25/23 07:37 FiO2 Intake & Output 11/24/23 11/25/23 11/25/23 18:59 06:59 18:59 Intake Total 1080 1410 120 Output Total 900 Balance 1080 510 120 Weight 61.689 kg Intake: Intake, IV Titration 220 Amount Piperacillin-Tazobactam 3 100 .375 gm In Sodium Chloride 0.9% 100 ml @ 25 mls/hr IVPB Q8H [facility] Rx#: [id number] Sodium Chloride 0.9% 1, 120 000 ml @ 100 mls/hr IV . Q10H [facility] Rx#:[id number] Oral 1080 1190 120 Output: Urine 900 Other: Voiding Method Toilet Toilet Urinal Urinal # Voids 6 - Constitutional General appearance: Present: no acute distress - EENT Eyes: Present: anicteric sclerae, EOMI ENT: Present: hearing grossly normal - Respiratory Details: breathing is even and labored - Cardiovascular Details: skin warm and dry - Integumentary Integumentary: Absent: cyanotic, jaundiced - Musculoskeletal Musculoskeletal: Present: strength equal bilaterally - Psychiatric Psychiatric: Present: A&O x's 3 - Labs CBC & Chem 7: 11/24/23 03:20 11/25/23 03:53 Labs: Abnormal Lab Results - Last 24 Hours (Table) 11/25/23 Range/Units 03:53 Creatinine 0.5 L (0.6-1.5) mg/dL Total Bilirubin 0.2 L (0.3-1.2) mg/dL ALT <5 L (10-49) U/L Total Protein 5.3 L (6.2-8.2) g/dL Albumin 2.7 L (3.8-4.9) g/dL Albumin/Globulin Ratio 1.04 L (1.60-3.17) Ratio Microbiology - Last 24 Hours (Table) 11/21/23 19:35 Blood Culture - Preliminary Blood 11/22/23 00:31 Gram Stain - Final Sputum Sputum Culture - Final - Imaging and Cardiology Chest x-ray: report reviewed Assessment and Plan (1) CLL (chronic lymphocytic leukemia) Current Visit: Yes Status: Acute Priority: High Code(s): C91.10 - CHRONIC LYMPHOCYTIC LEUK OF B-CELL TYPE NOT ACHIEVE REMIS SNOMED Code(s): 22526882 (2) Pneumonia Current Visit: Yes Status: Acute Priority: High Code(s): J18.9 - PNEUMONIA, UNSPECIFIED ORGANISM SNOMED Code(s): 347761258 Plan: Pneumonia: Patient has been experiencing chills, SOB, productive cough with while/yellow/green sputum, and night sweats. Patient was evaluated in clinic and labs appeared to show significant inflammatory change which would explain the neutrophilia and the thrombocytosis. Sedimentation rate was greater than 130. CT scan of the chest abdomen and pelvis showed significant areas of consolidation in the right lung, with associated necrosis and air bronchograms. Underlying mass causing obstruction, was not ruled out. He was advised his CBC changes appear to be due to the major inflammatory process involving the right lung, with likely infection, he was thus referred to the hospital to be treated with IV antibiotics and to have further workup with pulmonary medicine. -Chest x-ray showed severe pneumonia right upper and midlung, given the persistence, underlying abscess not excluded. -IV antibiotics started with azithromycin and Zosyn. Viral panel negative. Blood culture negative thus far, sputum culture negative -Pulmonology following. Plan for now is to continue on IV abx and pending clinical course, may consider bronchoscopy -Repeat CXR stable from prior -Immunoglobulins ordered. IgG 903, no IVIG needed at this time -Leukocytosis showing improvement, WBC 25 from 28.8 on admit Had long discussion with patient and family regarding findings and POC. All questions and concerns were addressed CLL: -Oncology history and plan as dictated in the HPI -Patient has been in observation with stable disease, not currently on treatment -Continue in outpt f/u and observation
[2023-11-25 14:36] LABS: HCT 26.8 % (39.6-50.0); HGB 8.3 g/dL (13.0-17.0); MCH 24.1 pg (27.0-32.0); MCV 77.7 FL (80.0-97.0); Mean Platelet Volume 9.9 FL (9.5-12.2); NRBC Per 100 WBC 0 X 10*3/uL (0.00-0.01); Platelet Count 714 X 10*3/uL (140-440); RBC 3.45 X 10*6/uL (4.40-5.60); RDW 16.3 % (11.5-14.5); WBC 25.16 X 10*3/uL (4.50-10.00)
[2023-11-25] MEDS: SODIUM CHLORIDE 0.9% 1,000 ML IV SCH (17:49)
--- NOTE | 2023-11-25 23:09 | P.CONS ---
History of Present Illness - Reason for Consult Consult date: 11/25/23 Leukocytosis Requesting physician: Michael Foster - Chief Complaint Increasing shortness of breath x few days - History of Present Illness Patient is a 68-year-old male with a past medical history significant for parkinsonism osteoarthritis CLL never smoker presenting to the hospital about 4 days ago for evaluation of increasing shortness of breath apparently sym ptoms has been worse at night patient also have a cough which has been moderate intensity bring up some sputum no hemoptysis and no pleuritic chest pain patient also complaining of having some difficulty in swallowing but no overt aspiration on presentation to the hospital the patient was afebrile and no fever have been recorded subsequently patient was nontachycardic hypotensive or hypoxic curren tly 97% on room air patient on presentation to the hospital did have white count 28.8 white count has been elevated for the last 4 days with a white count 25.16 that has prompted this infectious disease consultation patient did have normal creatinine liver enzymes are normal he did have a procalcitonin 0.16 influenza RSV COVID testing was negative patient did have blood and sputum cultures so far negative chest x-ray right upper lobe consolidation correlate for pneumonia underlying mass is not excluded patient has been treated with Zosyn infectious was consulted because of his persistent elevated white count Review of Systems Positive point and negatives has been mentioned in the HPI, complete review of systems was performed and all other systems are negative Past Medical History Past Medical History: Cancer, Neurologic Disorder, Osteoarthritis (OA) Additional Past Medical History / Comment(s): Parkinson's. Bilateral Tinnitus, degenerative disk disease, scoliosis, spondyolisthesis, chronic lymphocytic leukemia History of Any Multi-Drug Resistant Organisms: None Reported Past Surgical History: Hernia Repair Past Anesthesia/Blood Transfusion Reactions: No Reported Reaction Past Psychological History: Anxiety Smoking Status: Never smoker Past Alcohol Use History: Occasional Past Drug Use History: None Reported - Past Family History Father Family Medical History: Myocardial Infarction ([place]) Additional Family Medical History / Comment(s): Father of heart attack Medications and Allergies Home Medications Medication Instructions Recorded Confirmed Type Carbidopa-Levodopa 25-100 mg 2 tab PO QID@02,08,14,20 01/16/19 11/21/23 History [Sinemet 25-100] Cetirizine HCl [Zyrtec] 10 mg PO DAILY 01/16/19 11/21/23 History Montelukast Sodium [Singulair] 10 mg PO DAILY 01/16/19 11/21/23 History hydrOXYzine HCL [Atarax] 50 mg PO HS 01/16/19 11/21/23 History Cholecalciferol [Vitamin D3 (125 125 mcg PO DAILY 11/21/23 11/21/23 History Mcg = 5000 Iu)] Men's Multivitamin Gummy 1 tab PO DAILY 11/21/23 11/21/23 History Allergies Allergy/AdvReac Type Severity Reaction Status Date / Time casein Allergy Swelling Verified 11/21/23 15:04 gabapentin Allergy Rash/Hives, Verified 11/21/23 16:27 nausea/vomiting Milk Containing Products Allergy Swelling Verified 11/23/23 13:27 (Dairy) wheat Allergy Swelling Verified 11/21/23 15:04 Physical Exam Vitals: Vital Signs Temp Pulse Resp BP BP Pulse Ox 11/25/23 12:34 97.3 F L 95 17 128/79 94 L 11/25/23 08:45 81 17 11/25/23 07:37 97.5 F L 81 17 113/72 92 L 11/25/23 01:52 97.6 F 86 16 98/59 92 L 11/24/23 20:00 97.5 F L 97 16 111/75 95 Intake and Output 11/24/23 11/25/23 11/25/23 22:59 06:59 14:59 Intake Total 1440 1050 240 Output Total 900 Balance 1440 150 240 Intake: Intake, IV Titration 220 Amount Piperacillin-Tazobactam 3 100 .375 gm In Sodium Chloride 0.9% 100 ml @ 25 mls/hr IVPB Q8H FELIPE Rx#: [id number] Sodium Chloride 0.9% 1, 120 000 ml @ 100 mls/hr IV . Q10H FELIPE Rx#:[id number] Oral 1440 830 240 Output: Urine 900 Other: Voiding Method Toilet Toilet Urinal Urinal # Voids 6 GENERAL DESCRIPTION: Elderly male lying in bed, no distress. No tachypnea or accessory muscle of respiration use. HEENT: Shows Pallor , no scleral icterus. Oral mucous membrane is dry. No pharyngeal erythema or thrush NECK: Trachea central, no thyromegaly. LUNGS: Unlabored breathing. Decreased symptoms of breath, no wheeze or crackle HEART: S1, S2, regular rate and rhythm. No loud murmur ABDOMEN: Soft, no tenderness , guarding or rigidity, no organomegaly EXTREMITIES: No edema of feet. SKIN: No rash, no masses palpable. NEUROLOGICAL: The patient is awake, alert, oriented x3, mood and affect normal. Results CBC & Chem 7: 11/25/23 03:53 11/25/23 03:53 Labs: Abnormal Lab Results - Last 24 Hours (Table) 11/25/23 Range/Units 03:53 Creatinine 0.5 L (0.6-1.5) mg/dL Total Bilirubin 0.2 L (0.3-1.2) mg/dL ALT <5 L (10-49) U/L Total Protein 5.3 L (6.2-8.2) g/dL Albumin 2.7 L (3.8-4.9) g/dL Albumin/Globulin Ratio 1.04 L (1.60-3.17) Ratio Microbiology - Last 24 Hours (Table) 11/21/23 19:35 Blood Culture - Preliminary Blood 11/22/23 00:31 Gram Stain - Final Sputum Sputum Culture - Final Assessment and Plan (1) Leukocytosis Current Visit: Yes Status: Acute Code(s): D72.829 - ELEVATED WHITE BLOOD CELL COUNT, UNSPECIFIED SNOMED Code(s): 452109700 (2) Pneumonia Current Visit: Yes Status: Acute Priority: High Code(s): J18.9 - PNEUMONIA, UNSPECIFIED ORGANISM SNOMED Code(s): 705250476 Plan: 1patient with elevated white count in this patient presenting to the hospital with increasing shortness of breath patient did have a CT in the outpatient setting suggestive of right upper lobe mass chest x-ray showing right upper lobe mass/consolidation patient not running any fever did have a normal procalcitonin and does not look toxic elevated white count more likely due to his underlying CLL rather than infectious etiology 2-we will repeat his inflammatory markers 3-will benefit from bronchoscopy transbronchial biopsy and lavage to rule out infectious etiology 4-May continue Zosyn while awaiting further workup to be completed We will follow on clinical condition and cultures to further adjust medication if needed Thank you for this consultation we will follow the patient along with you Dictation was produced using [employer] software. please excuse any grammatical, word or spelling errors. Time with Patient: Greater than 30
[2023-11-26 09:05] LABS: ALT <5 U/L (10-49); AST 19 U/L (14-35); Alkaline Phosphatase 119 U/L (41-126); Blood Urea Nitrogen 8.1 mg/dL (9.0-27.0); Calcium 9.3 mg/dL (8.7-10.3); Carbon Dioxide 27.7 mmol/L (21.6-31.8); Chloride 100 mmol/L (96-109); Glucose 84 mg/dL (70-110); Potassium 4.8 mmol/L (3.5-5.5); Sodium 138 mmol/L (135-145); Total Bilirubin <0.2 mg/dL (0.3-1.2)
[2023-11-26 12:49] LABS: Basophils # (M) 0 X 10*3/uL (0.00-0.10); Eosinophils # (M) 0.49 X 10*3/uL (0.04-0.35); HCT 29.5 % (39.6-50.0); Lymphocytes # (M) 15.85 X 10*3/uL (0.90-5.00); MCH 24.5 pg (27.0-32.0); MCHC 30.5 g/dL (32.0-37.0); MCV 80.2 FL (80.0-97.0); Mean Platelet Volume 10.1 FL (9.5-12.2); Monocytes # (M) 0.49 X 10*3/uL (0.20-1.00); NRBC Per 100 WBC 0 X 10*3/uL (0.00-0.01); Neutrophils # (M) 7.56 X 10*3/uL (1.80-7.70); Neutrophils % (M) 31 %; Platelet Count 755 X 10*3/uL (140-440); RBC 3.68 X 10*6/uL (4.40-5.60); RBC Morphology Normal (Normal); RDW 16.3 % (11.5-14.5); Smudge Cells Present; WBC 24.38 X 10*3/uL (4.50-10.00)
--- NOTE | 2023-11-26 17:40 | P.PN ---
Subjective Progress Note Date: 11/26/23 Jessica Pathak, is a 68-year-old male who presented to [facility] emergency room with a chief complaint of worsening shortness of breath, and a new 3.2 cm mass or focal consolidation with ill-defined margins in the right lower lobe on recent CT scan of the chest. Patient has a known history of chronic lymphocytic leukemia followed by oncology he also has a known history of Parkinson disease and history of bronchiectasis, he had a previous history of right lower lobe pleural-based pulmonary nodule followed by pulmonary as outpatient. He was evaluated in the emergency room vital examination on presentation revealed a temperature of 98.6 pulse 98 respirations 16 blood pressure 105/67 pulse ox 93% on room air Laboratory data revealed a white blood count of 28.8 hemoglobin 10.9 platelet count 822 BUN 19 creatinine 0.59 Testing in the emergency room revealed Patient was admitted to medical floor for further evaluation and treatment On 11/23/2023 patient is alert and oriented x 3. Patient reports improvement with shortness of breath but does report he does get short of breath with activity. Patient margaux on antibiotics azithromycin and Zosyn. Possible plans for bronchoscopy today per pulmonary. At this time patient denies chest pain or shortness of breath. Patient denies nausea vomiting or diarrhea. Patient denies any urinary burning or frequency. Current vital signs temp 97.7, heart rate 84, respiratory rate 16, blood pressure 117/74 with a pulse ox of 97% on room air. On 11/24/2023 patient was seen and examined on the medical floor he is alert and oriented x 3 in no apparent distress there is no fever or chills no headache or dizziness he is still having some cough and shortness of breath with activity otherwise he denies any complaints there is no fever or chills no headache or dizziness no chest pain no nausea or vomiting no abdominal pain no diarrhea and no urinary symptoms. At this time we will continue with IV antibiotics, decrease IV fluid, will continue to follow closely. On 11/25/2023 patient is alert and oriented x 3. Patient reports improvement with cough and shortness of breath. Patient remains on IV Zosyn. White blood cell remains elevated despite antibiotic treatment will consult infectious disease services. Family at bedside family expresses concerns about wanting bronchoscopy completed during hospital stay. Will await further recommendations from pulmonary services. Repeat chest x-ray has been ordered this a.m. All questions answered. Patient denies chest pain or shortness of breath. Patient denies nausea vomiting or diarrhea. Patient denies any urinary burning or frequency. On 11/26/2023 patient was seen and examined on the medical floor he is alert and oriented x 3 in no apparent distress he is complaining of cough and complaining of dizziness today otherwise he denies any complaints there is no fever or c hills no headache no chest pain no shortness of breath no nausea or vomiting no abdominal pain no diarrhea and no urinary symptoms. At this time will check echocardiogram in regard to dizziness, awaiting further recommendation from infectious disease and pulmonary, white blood count remains elevated at 24,000 Objective - Vital Signs Vital signs: Vital Signs Temp 97.6 F 11/26/23 12:16 Pulse 83 11/26/23 12:16 Resp 16 11/26/23 12:16 BP 124/74 11/26/23 12:16 Pulse Ox 97 11/26/23 12:16 FiO2 Intake & Output 11/25/23 11/26/23 11/26/23 18:59 06:59 18:59 Intake Total 360 Output Total 800 Balance 360 -800 Intake: Oral 360 Output: Urine 800 Other: Voiding Method Toilet Toilet Urinal Urinal # Voids 7 - Exam In general patient is alert and oriented x 3 in no distress HEENT head normocephalic and atraumatic Neck is supple no JVD no goiter no lymphadenopathy no carotid bruit Chest examination is clear to auscultation no crackles no wheezing Cardiac exam reveals regular heart sounds S1 and S2 no gallops no murmurs Abdomen is soft nontender no organomegaly with normal bowel sounds Extremity exam reveals no edema no cyanosis or clubbing Neurological examination reveals no gross focal deficits - Labs CBC & Chem 7: 11/26/23 04:24 11/26/23 04:24 Labs: Abnormal Lab Results - Last 24 Hours (Table) 11/26/23 11/26/23 Range/Units 04:24 04:24 WBC 24.38 H (4.50-10.00) X 10*3/uL RBC 3.68 L (4.40-5.60) X 10*6/uL Hgb 9.0 L (13.0-17.0) g/dL Hct 29.5 L (39.6-50.0) % MCH 24.5 L (27.0-32.0) pg MCHC 30.5 L (32.0-37.0) g/dL RDW 16.3 H (11.5-14.5) % Plt Count 755 H (140-440) X 10*3/uL Lymphocytes # (Manual) 15.85 H (0.90-5.00) X 10*3/uL Eosinophils # (Manual) 0.49 H (0.04-0.35) X 10*3/uL Smudge Cells Present A BUN 8.1 L (9.0-27.0) mg/dL Total Bilirubin <0.2 L (0.3-1.2) mg/dL ALT <5 L (10-49) U/L C-Reactive Protein 7.20 H (0.00-0.80) mg/dL Total Protein 6.0 L (6.2-8.2) g/dL Albumin 3.0 L (3.8-4.9) g/dL Albumin/Globulin Ratio 1.00 L (1.60-3.17) Ratio Assessment and Plan Plan: Right lower lobe and right upper lobe consolidation opacities on recent CT scan done as outpatient, patient is admitted to medical floor pulmonary consultation was requested Underlying history of chronic lymphocytic leukemia Underlying history of Parkinson disease Underlying history of bronchiectasis Underlying history of chronic dysphagia Underlying history of right lower lobe pulmonary nodule At this time patient is admitted to medical floor Home medications reviewed and reordered Pulmonary consultation was requested Will follow closely
--- NOTE | 2023-11-26 18:43 | P.PN ---
Subjective Progress Note Date: 11/26/23 Patient is a 68-year-old male with past medical history significant for lung nodules, bronchiectasis, Parkinson's disease, CLL. Patient follows in the pulmonary office with Dr. Morocho. Had a previous right lower lobe peripheral based nodule. PET scan done in 2019 concerning for inflammatory process. This was followed outpatient. Patient had a more recent outpatient CT of the chest demonstrating right lower and upper lobe lung consolidation/mass like opacities. He was directed to the emergency department by his oncologist, Dr. Hebert. It appears the patient has a 3.2 cm mass or focal parenchymal consolidation with ill-defined margins in the right lower lobe. The center of the mass is hypodense possibly indicating necrosis. There is a large area of consolidated opacity with air bronchograms and areas of decreased density in the right upper lobe. Findings are suspicious for neoplasm or inflammatory process with early abscess development. Incidental hiatal hernia noted. CBC: WBC count 28.8, hemoglobin 10.9, hematocrit 33.8, platelets 822. CMP: Sodium 135, potassium 4.8, chloride 96, serum bicarb 32, BUN 19, creatinine 0.58, glucose 101. Lactic 1.1. Normal saline infusing at 100 mL/h LFTs unremarkable. Troponin less than 0.012. NT proBNP 376. Negative for influenza, RSV, COVID. Currently, the patient is covered on empiric antibiotics. Procalcitonin level pending. Afebrile. Currently resting comfortably on room air. SpO2 94%. Nontoxic appearance. Over the last 2 weeks the patient has had a congested cough with green sputum production. Sputum is foul tasting. No hemoptysis. There is associated right sided thoracic level back pain. He denies any fevers or chills. He has had an approximately 18 pound weight loss over the last couple months. He has been very fatigued over the last couple weeks. No smoking history. Patient does have Parkinson's disease, and normally ambulates with walker. Occasionally has issues swallowing. Food gets stuck in his throat. [place] quently coughs after eating. No dental infections. Denies drug or alcohol use. Progress note dated November 23, 2023. The patient is seen today in room 529. The patient feels better. Less short of breath. He is coughing, but not producing any phlegm. Cultures are thus far negative. Procalcitonin level was 0.16. He continues on azithromycin and Zosyn. Current labs include a white count of 24.3, hemoglobin 9.5, hematocrit 30.6, and a platelet count of 706,000. Cultures are thus far negative. Progress note dated November 24, 2023. The patient is seen this morning in room 529. The patient is on room air. Saturations are 95%. He is getting saline at 100 cc an hour. He continues on Zosyn. The patient had an uneventful night. He states that he is feeling better. He is coughing less, and producing less phlegm. No chest pain or chest discomfort. No fever or chills. No new labs today. Progress note dated November 25, 2023. 68-year-old male seen today in room 529. He is currently on room air. He is on Zosyn. He feels much better. Repeat chest x-ray will be ordered. His is in the room with him, and states that the patient is doing better. We are currently treating him for possible infection, involving the right upper lobe. Current new laboratory includes a sodium 136, potassium 4.5, chloride 99, CO2 27, BUN 9, creatinine 0.5. Sputum and blood cultures are currently negative or pending. Repeat chest x-ray continues to show a consolidation/mass, right upper lobe. 11/26/2023, patient is being seen for a follow-up. This is a 68-year-old male patient with known history of CLL and the patient is presenting with an extensive right lung pneumonia and the patient has developed a masslike consolidation involving the right lung. The white cell count is elevated and essentially consistent with lymphocytosis and the patient's lymphocytic count is in the order of 65% with a white cell count of 24 consistent with CLL. The electrolytes are all within normal limits. The patient is currently on room air oxygen. CRP was elevated at 7.2. Procalcitonin was at 0.09. The patient remains on IV Zosyn. Clinically however, the patient is improving. He is on room air oxygen with a pulse ox of 97%. Repeat chest x-ray was done on 11/25/2023 showed large consolidation involving the right lung probably somewhat improved and repeat chest x-ray will be obtained tomorrow. Possibility of malignancy cannot be completely excluded although it is felt to be less likely. Objective - Vital Signs Vital signs: Vital Signs Temp 97.6 F 11/26/23 12:16 Pulse 83 11/26/23 12:16 Resp 16 11/26/23 12:16 BP 124/74 11/26/23 12:16 Pulse Ox 97 11/26/23 12:16 FiO2 Intake & Output 11/25/23 11/26/23 11/26/23 18:59 06:59 18:59 Intake Total 360 Output Total 800 Balance 360 -800 Intake: Oral 360 Output: Urine 800 Other: Voiding Method Toilet Urinal # Voids 7 - Exam No acute distress, oriented 3. No supplemental oxygen. Room air oxygen HEENT examination is grossly unremarkable. Mucous membranes are moist. No oral lesions. Neck supple. Full range of motion. No adenopathy thyromegaly or neck vein distention. Cardiovascular examination reveals regular rhythm rate. S1-S2 normal. No S3 or S4. No discernible murmur noted. Lungs reveal scattered mild rhonchi. No wheezes or crackles. Breath sounds equal. Abdomen soft bowel sounds are heard. No masses or tenderness. Extremities are intact. No cyanosis clubbing or edema. Skin is without rash or lesion. Neurologic examination is brief but nonfocal. - Labs CBC & Chem 7: 11/26/23 04:24 11/26/23 04:24 Labs: Abnormal Lab Results - Last 24 Hours (Table) 11/25/23 11/26/23 11/26/23 Range/Units 03:53 04:24 04:24 WBC 25.16 H 24.38 H (4.50-10.00) X 10*3/uL RBC 3.45 L 3.68 L (4.40-5.60) X 10*6/uL Hgb 8.3 L 9.0 L (13.0-17.0) g/dL Hct 26.8 L 29.5 L (39.6-50.0) % MCV 77.7 L (80.0-97.0) FL MCH 24.1 L 24.5 L (27.0-32.0) pg MCHC 31.0 L 30.5 L (32.0-37.0) g/dL RDW 16.3 H 16.3 H (11.5-14.5) % Plt Count 714 H 755 H (140-440) X 10*3/uL Lymphocytes # (Manual) 15.85 H (0.90-5.00) X 10*3/uL Eosinophils # (Manual) 0.49 H (0.04-0.35) X 10*3/uL Smudge Cells Present A BUN 8.1 L (9.0-27.0) mg/dL Total Bilirubin <0.2 L (0.3-1.2) mg/dL ALT <5 L (10-49) U/L C-Reactive Protein 7.20 H (0.00-0.80) mg/dL Total Protein 6.0 L (6.2-8.2) g/dL Albumin 3.0 L (3.8-4.9) g/dL Albumin/Globulin Ratio 1.00 L (1.60-3.17) Ratio Assessment and Plan Plan: Right lower and upper lobe lung consolidation/masslike opacities, differential includes infectious process with early abscess or malignancy. Chronic leukocytosis, secondary to CLL. The patient has lymphocytosis. History of CLL. Hiatal hernia. History of a Parkinson's disease. Chronic dysphagia. History of acquired bronchiectasis. History of right lower lobe pleural-based pulmonary nodule. Plan: Patient is currently on room air oxygen The patient continues on Zosyn. Clinically he is feeling better. The patient will have a repeat chest x-ray continues to show a mass/infiltrate, right upper lobe. Bronchoscopy if there is incomplete filling of the right lung masslike consolidation. Will continue to follow
[2023-11-26] MEDS: HYDROcodone/APAP 7.5-325MG 1 EACH TAB PO PRN (20:43)
[2023-11-27 08:52] LABS: HCT 28.3 % (39.6-50.0); HGB 8.5 g/dL (13.0-17.0); MCH 24.1 pg (27.0-32.0); MCV 80.4 FL (80.0-97.0); Mean Platelet Volume 9.9 FL (9.5-12.2); NRBC Per 100 WBC 0 X 10*3/uL (0.00-0.01); Platelet Count 742 X 10*3/uL (140-440); RBC 3.52 X 10*6/uL (4.40-5.60); RDW 16.7 % (11.5-14.5); WBC 20.46 X 10*3/uL (4.50-10.00)
--- NOTE | 2023-11-27 08:59 | P.PN ---
Subjective Progress Note Date: 11/27/23 Jessica Pathak, is a 68-year-old male who presented to [facility] emergency room with a chief complaint of worsening shortness of breath, and a new 3.2 cm mass or focal consolidation with ill-defined margins in the right lower lobe on recent CT scan of the chest. Patient has a known history of chronic lymphocytic leukemia followed by oncology he also has a known history of Parkinson disease and history of bronchiectasis, he had a previous history of right lower lobe pleural-based pulmonary nodule followed by pulmonary as outpatient. He was evaluated in the emergency room vital examination on presentation revealed a temperature of 98.6 pulse 98 respirations 16 blood pressure 105/67 pulse ox 93% on room air Laboratory data revealed a white blood count of 28.8 hemoglobin 10.9 platelet count 822 BUN 19 creatinine 0.59 Testing in the emergency room revealed Patient was admitted to medical floor for further evaluation and treatment On 11/23/2023 patient is alert and oriented x 3. Patient reports improvement with shortness of breath but does report he does get short of breath with activity. Patient margaux on antibiotics azithromycin and Zosyn. Possible plans for bronchoscopy today per pulmonary. At this time patient denies chest pain or shortness of breath. Patient denies nausea vomiting or diarrhea. Patient denies any urinary burning or frequency. Current vital signs temp 97.7, heart rate 84, respiratory rate 16, blood pressure 117/74 with a pulse ox of 97% on room air. On 11/24/2023 patient was seen and examined on the medical floor he is alert and oriented x 3 in no apparent distress there is no fever or chills no headache or dizziness he is still having some cough and shortness of breath with activity otherwise he denies any complaints there is no fever or chills no headache or dizziness no chest pain no nausea or vomiting no abdominal pain no diarrhea and no urinary symptoms. At this time we will continue with IV antibiotics, decrease IV fluid, will continue to follow closely. On 11/25/2023 patient is alert and oriented x 3. Patient reports improvement with cough and shortness of breath. Patient remains on IV Zosyn. White blood cell remains elevated despite antibiotic treatment will consult infectious disease services. Family at bedside family expresses concerns about wanting bronchoscopy completed during hospital stay. Will await further recommendations from pulmonary services. Repeat chest x-ray has been ordered this a.m. All questions answered. Patient denies chest pain or shortness of breath. Patient denies nausea vomiting or diarrhea. Patient denies any urinary burning or frequency. On 11/26/2023 patient was seen and examined on the medical floor he is alert and oriented x 3 in no apparent distress he is complaining of cough and complaining of dizziness today otherwise he denies any complaints there is no fever or c hills no headache no chest pain no shortness of breath no nausea or vomiting no abdominal pain no diarrhea and no urinary symptoms. At this time will check echocardiogram in regard to dizziness, awaiting further recommendation from infectious disease and pulmonary, white blood count remains elevated at 24,000 On 11/27/2023 patient is alert and oriented x 3. 2D echo has been ordered. Patient remains on IV Zosyn. Repeat chest x-ray has been ordered awaiting further recommendations from pulmonary services. Infectious disease services following for leukocytosis. At this time patient denies chest pain or shortness of breath. Patient denies nausea vomiting or diarrhea. Patient denies any urinary burning or frequency Objective - Vital Signs Vital signs: Vital Signs Temp 97.5 F L 11/27/23 06:59 Pulse 90 11/27/23 06:59 Resp 16 11/27/23 06:59 BP 130/75 11/27/23 06:59 Pulse Ox 95 11/27/23 06:59 FiO2 Intake & Output 11/26/23 11/27/23 11/27/23 18:59 06:59 18:59 Intake Total 780 Output Total 850 Balance 780 -850 Intake: Oral 780 Output: Urine 850 Other: Voiding Method Toilet Urinal Urinal # Voids 5 - Exam In general patient is alert and oriented x 3 in no distress HEENT head normocephalic and atraumatic Neck is supple no JVD no goiter no lymphadenopathy no carotid bruit Chest examination is clear to auscultation no crackles no wheezing Cardiac exam reveals regular heart sounds S1 and S2 no gallops no murmurs Abdomen is soft nontender no organomegaly with normal bowel sounds Extremity exam reveals no edema no cyanosis or clubbing Neurological examination reveals no gross focal deficits - Labs CBC & Chem 7: 11/27/23 04:00 11/26/23 04:24 Labs: Abnormal Lab Results - Last 24 Hours (Table) 11/26/23 11/26/2324 Range/Units 04:24 04:24 04:00 WBC 24.38 H 20.46 H (4.50-10.00) X 10*3/uL RBC 3.68 L 3.52 L (4.40-5.60) X 10*6/uL Hgb 9.0 L 8.5 L (13.0-17.0) g/dL Hct 29.5 L 28.3 L (39.6-50.0) % MCH 24.5 L 24.1 L (27.0-32.0) pg MCHC 30.5 L 30.0 L (32.0-37.0) g/dL RDW 16.3 H 16.7 H (11.5-14.5) % Plt Count 755 H 742 H (140-440) X 10*3/uL Lymphocytes # (Manual) 15.85 H (0.90-5.00) X 10*3/uL Eosinophils # (Manual) 0.49 H (0.04-0.35) X 10*3/uL Smudge Cells Present A BUN 8.1 L (9.0-27.0) mg/dL Total Bilirubin <0.2 L (0.3-1.2) mg/dL ALT <5 L (10-49) U/L C-Reactive Protein 7.20 H (0.00-0.80) mg/dL Total Protein 6.0 L (6.2-8.2) g/dL Albumin 3.0 L (3.8-4.9) g/dL Albumin/Globulin Ratio 1.00 L (1.60-3.17) Ratio Microbiology - Last 24 Hours (Table) 11/21/23 19:35 Blood Culture - Final Blood Assessment and Plan Plan: Right lower lobe and right upper lobe consolidation opacities on recent CT scan done as outpatient, patient is admitted to medical floor pulmonary consultation was requested Underlying history of chronic lymphocytic leukemia Underlying history of Parkinson disease Underlying history of bronchiectasis Underlying history of chronic dysphagia Underlying history of right lower lobe pulmonary nodule At this time patient is admitted to medical floor Home medications reviewed and reordered Pulmonary consultation was requested Infectious disease and oncology services following Echo ordered Will follow closely
[2023-11-27 09:06] LABS: ALT <5 U/L (10-49); AST 15 U/L (14-35); Albumin 2.9 g/dL (3.8-4.9); Albumin/Globulin Ratio 1.12 Ratio (1.60-3.17); Alkaline Phosphatase 107 U/L (41-126); Blood Urea Nitrogen 12.2 mg/dL (9.0-27.0); Calcium 8.8 mg/dL (8.7-10.3); Carbon Dioxide 28.1 mmol/L (21.6-31.8); Chloride 99 mmol/L (96-109); Globulin 2.6 g/dL (1.6-3.3); Glucose 91 mg/dL (70-110); Potassium 4.5 mmol/L (3.5-5.5); Sodium 136 mmol/L (135-145); Total Bilirubin <0.2 mg/dL (0.3-1.2); Total Protein 5.5 g/dL (6.2-8.2)
--- NOTE | 2023-11-27 10:24 | XR ---
EXAMINATION TYPE: XR chest 2V DATE OF EXAM: 11/27/2023 COMPARISON: 11/25/2023 TECHNIQUE: PA and lateral views submitted. HISTORY: Ammonia FINDINGS: Artery consolidation involving the right lung is stable. Left lung clear. Heart size normal. Diffuse osteopenia. Mild AC joint arthropathy and degenerative change of the spine. Basilar subsegmental scar ring or atelectasis. IMPRESSION: 1. Large area of right upper and lower lobe consolidation or mass is stable.. [facility], , 11/27/2023 10:21 AM
[2023-11-27 11:46] LABS: Basophils # (M) 0 X 10*3/uL (0.00-0.10); Eosinophils # (M) 0 X 10*3/uL (0.04-0.35); Lymphocytes # (M) 15.14 X 10*3/uL (0.90-5.00); Monocytes # (M) 0 X 10*3/uL (0.20-1.00); Neutrophils # (M) 5.32 X 10*3/uL (1.80-7.70); Neutrophils % (M) 26 %
--- NOTE | 2023-11-27 13:34 | P.PN ---
Subjective Progress Note Date: 11/27/23 Principal diagnosis: Reason for follow-up is leukocytosis right upper lobe consolidation Patient is a 68-year-old male with a past medical history significant for parkinsonism osteoarthritis CLL never smoker presenting to the hospital for evaluation of increasing shortness of breath the patient did have a chest x-ray suggestive of right upper lobe consolidation did have elevated white count prompted this consultation. On today's evaluation that is 11/27/2023,the patient denies any fever or any chills, patient is breathing comfortably on room air, the patient denies chest pain shortness of breath and no worsening cough or sputum production, patient denies abdominal pain, no nausea vomiting or diarrhea. Patient white count is 20.46, creatinine 0.5 Objective - Vital Signs Vital signs: Vital Signs Temp 97.7 F 11/27/23 11:56 Pulse 79 11/27/23 11:56 Resp 16 11/27/23 11:56 BP 124/79 11/27/23 11:56 Pulse Ox 98 11/27/23 11:56 FiO2 Intake & Output 11/26/23 11/27/23 11/27/23 18:59 06:59 18:59 Intake Total 780 Output Total 850 Balance 780 -850 Intake: Oral 780 Output: Urine 850 Other: Voiding Method Toilet Urinal Toilet Urinal Urinal # Voids 5 - Exam GENERAL DESCRIPTION: An elderly male lying in bed in no distress RESPIRATORY SYSTEM: Unlabored breathing , decreased breath sounds at bases HEART: S1 S2 regular rate and rhythm , ABDOMEN: Soft , no tenderness EXTREMITIES: No edema feet - Labs CBC & Chem 7: 11/27/23 04:00 11/27/23 04:00 Labs: Abnormal Lab Results - Last 24 Hours (Table) 11/27/23 11/27/23 Range/Units 04:00 04:00 WBC 20.46 H (4.50-10.00) X 10*3/uL RBC 3.52 L (4.40-5.60) X 10*6/uL Hgb 8.5 L (13.0-17.0) g/dL Hct 28.3 L (39.6-50.0) % MCH 24.1 L (27.0-32.0) pg MCHC 30.0 L (32.0-37.0) g/dL RDW 16.7 H (11.5-14.5) % Plt Count 742 H (140-440) X 10*3/uL Lymphocytes # (Manual) 15.14 H (0.90-5.00) X 10*3/uL Monocytes # (Manual) 0 L (0.20-1.00) X 10*3/uL Eosinophils # (Manual) 0 L (0.04-0.35) X 10*3/uL Creatinine 0.5 L (0.6-1.5) mg/dL BUN/Creatinine Ratio 24.40 H (12.00-20.00) Ratio Total Bilirubin <0.2 L (0.3-1.2) mg/dL ALT <5 L (10-49) U/L Total Protein 5.5 L (6.2-8.2) g/dL Albumin 2.9 L (3.8-4.9) g/dL Albumin/Globulin Ratio 1.12 L (1.60-3.17) Ratio Microbiology - Last 24 Hours (Table) 11/21/23 19:35 Blood Culture - Final Blood Assessment and Plan (1) Leukocytosis Current Visit: Yes Status: Acute Code(s): D72.829 - ELEVATED WHITE BLOOD CELL COUNT, UNSPECIFIED SNOMED Code(s): 225718122 (2) Pneumonia Current Visit: Yes Status: Acute Priority: High Code(s): J18.9 - PNEUMONIA, UNSPECIFIED ORGANISM SNOMED Code(s): 881093342 Plan: 1patient with elevated white count in this patient presenting to the hospital with increasing shortness of breath patient did have a CT in the outpatient setting suggestive of right upper lobe mass chest x-ray showing right upper lobe mass/consolidation patient not running any fever did have a normal procalcitonin and does not look toxic elevated white count more likely due to his underlying CLL rather than infectious etiology 2-patient did have a repeat procalcitonin and is 0.09 chest x-ray repeated today shows consolation to be about the same, patient benefit from from bronchoscopy transbronchial biopsy and lavage to rule out malignancy or atypical infectious etiology 3-patient white count is trending down and will monitor closely continue with the [employer] Dictation was produced using [employer] dictation software. please excuse any grammatical, word or spelling errors. Time with Patient: Less than 30
--- NOTE | 2023-11-27 13:34 | P.PN ---
Subjective Progress Note Date: 11/26/23 Principal diagnosis: Reason for follow-up is leukocytosis right upper lobe consolidation Patient is a 68-year-old male with a past medical history significant for parkinsonism osteoarthritis CLL never smoker presenting to the hospital for evaluation of increasing shortness of breath the patient did have a chest x-ray suggestive of right upper lobe consolidation did have elevated white count prompted this consultation. On today's evaluation that is 11/26/2023, Patient is afebrile this morning patient denies having any chest pain shortness of breath and the patient cough has decreased in intensity h, the patient is breathing comfortably on room air, patient denies any abdominal pain no diarrhea no nausea no vomiting. Patient white count slightly down to 24.38, creatinine 0.6 repeat procalcitonin 0.09 blood sputum culture has been negative Objective - Vital Signs Vital signs: Vital Signs Temp 97.8 F 11/26/23 07:38 Pulse 88 11/26/23 07:38 Resp 17 11/26/23 07:38 BP 119/73 11/26/23 07:38 Pulse Ox 95 11/26/23 08:07 FiO2 Intake & Output 11/25/23 11/26/23 11/26/23 18:59 06:59 18:59 Intake Total 360 Output Total 800 Balance 360 -800 Intake: Oral 360 Output: Urine 800 Other: Voiding Method Toilet Urinal # Voids 7 - Exam GENERAL DESCRIPTION: An elderly male lying in bed in no distress RESPIRATORY SYSTEM: Unlabored breathing , decreased breath sounds at bases HEART: S1 S2 regular rate and rhythm , ABDOMEN: Soft , no tenderness EXTREMITIES: No edema feet - Labs CBC & Chem 7: 11/27/23 04:00 11/27/23 04:00 Labs: Abnormal Lab Results - Last 24 Hours (Table) 11/25/23 11/26/23 11/26/23 Range/Units 03:53 04:24 04:24 WBC 25.16 H 24.38 H (4.50-10.00) X 10*3/uL RBC 3.45 L 3.68 L (4.40-5.60) X 10*6/uL Hgb 8.3 L 9.0 L (13.0-17.0) g/dL Hct 26.8 L 29.5 L (39.6-50.0) % MCV 77.7 L (80.0-97.0) FL MCH 24.1 L 24.5 L (27.0-32.0) pg MCHC 31.0 L 30.5 L (32.0-37.0) g/dL RDW 16.3 H 16.3 H (11.5-14.5) % Plt Count 714 H 755 H (140-440) X 10*3/uL Lymphocytes # (Manual) 15.85 H (0.90-5.00) X 10*3/uL Eosinophils # (Manual) 0.49 H (0.04-0.35) X 10*3/uL Smudge Cells Present A BUN 8.1 L (9.0-27.0) mg/dL Total Bilirubin <0.2 L (0.3-1.2) mg/dL ALT <5 L (10-49) U/L C-Reactive Protein 7.20 H (0.00-0.80) mg/dL Total Protein 6.0 L (6.2-8.2) g/dL Albumin 3.0 L (3.8-4.9) g/dL Albumin/Globulin Ratio 1.00 L (1.60-3.17) Ratio Assessment and Plan (1) Leukocytosis Current Visit: Yes Status: Acute Code(s): D72.829 - ELEVATED WHITE BLOOD CELL COUNT, UNSPECIFIED SNOMED Code(s): 057468622 (2) Pneumonia Current Visit: Yes Status: Acute Priority: High Code(s): J18.9 - PNEUMONIA, UNSPECIFIED ORGANISM SNOMED Code(s): 293683257 Plan: 1patient with elevated white count in this patient presenting to the hospital with increasing shortness of breath patient did have a CT in the outpatient setting suggestive of right upper lobe mass chest x-ray showing right upper lobe mass/consolidation patient not running any fever did have a normal procalcitonin and does not look toxic elevated white count more likely due to his underlying CLL rather than infectious etiology 2-patient did have a repeat procalcitonin and is 0.09 chest x-ray repeated today shows consolation to be about the same, patient benefit from from bronchoscopy transbronchial biopsy and lavage to rule out infectious etiology 3-for now continue Zosyn while awaiting further workup to be completed Dictation was produced using dragon dictation software. please excuse any grammatical, word or spelling errors. Time with Patient: Less than 30
--- NOTE | 2023-11-27 15:48 | P.PN ---
Subjective Progress Note Date: 11/27/23 Patient is a 68-year-old male with past medical history significant for lung nodules, bronchiectasis, Parkinson's disease, CLL. Patient follows in the pulmonary office with Dr. Morocho. Had a previous right lower lobe peripheral based nodule. PET scan done in 2019 concerning for inflammatory process. This was followed outpatient. Patient had a more recent outpatient CT of the chest demonstrating right lower and upper lobe lung consolidation/mass like opacities. He was directed to the emergency department by his oncologist, Dr. Hebert. It appears the patient has a 3.2 cm mass or focal parenchymal consolidation with ill-defined margins in the right lower lobe. The center of the mass is hypodense possibly indicating necrosis. There is a large area of consolidated opacity with air bronchograms and areas of decreased density in the right upper lobe. Findings are suspicious for neoplasm or inflammatory process with early abscess development. Incidental hiatal hernia noted. CBC: WBC count 28.8, hemoglobin 10.9, hematocrit 33.8, platelets 822. CMP: Sodium 135, potassium 4.8, chloride 96, serum bicarb 32, BUN 19, creatinine 0.58, glucose 101. Lactic 1.1. Normal saline infusing at 100 mL/h LFTs unremarkable. Troponin less than 0.012. NT proBNP 376. Negative for influenza, RSV, COVID. Currently, the patient is covered on empiric antibiotics. Procalcitonin level pending. Afebrile. Currently resting comfortably on room air. SpO2 94%. Nontoxic appearance. Over the last 2 weeks the patient has had a congested cough with green sputum production. Sputum is foul tasting. No hemoptysis. There is associated right sided thoracic level back pain. He denies any fevers or chills. He has had an approximately 18 pound weight loss over the last couple months. He has been very fatigued over the last couple weeks. No smoking history. Patient does have Parkinson's disease, and normally ambulates with walker. Occasionally has issues swallowing. Food gets stuck in his throat. Pacheco quently coughs after eating. No dental infections. Denies drug or alcohol use. Progress note dated November 23, 2023. The patient is seen today in room 529. The patient feels better. Less short of breath. He is coughing, but not producing any phlegm. Cultures are thus far negative. Procalcitonin level was 0.16. He continues on azithromycin and Zosyn. Current labs include a white count of 24.3, hemoglobin 9.5, hematocrit 30.6, and a platelet count of 706,000. Cultures are thus far negative. Progress note dated November 24, 2023. The patient is seen this morning in room 529. The patient is on room air. Saturations are 95%. He is getting saline at 100 cc an hour. He continues on Zosyn. The patient had an uneventful night. He states that he is feeling better. He is coughing less, and producing less phlegm. No chest pain or chest discomfort. No fever or chills. No new labs today. Progress note dated November 25, 2023. 68-year-old male seen today in room 529. He is currently on room air. He is on Zosyn. He feels much better. Repeat chest x-ray will be ordered. His is in the room with him, and states that the patient is doing better. We are currently treating him for possible infection, involving the right upper lobe. Current new laboratory includes a sodium 136, potassium 4.5, chloride 99, CO2 27, BUN 9, creatinine 0.5. Sputum and blood cultures are currently negative or pending. Repeat chest x-ray continues to show a consolidation/mass, right upper lobe. 11/26/2023, patient is being seen for a follow-up. This is a 68-year-old male patient with known history of CLL and the patient is presenting with an extensive right lung pneumonia and the patient has developed a masslike consolidation involving the right lung. The white cell count is elevated and essentially consistent with lymphocytosis and the patient's lymphocytic count is in the order of 65% with a white cell count of 24 consistent with CLL. The electrolytes are all within normal limits. The patient is currently on room air oxygen. CRP was elevated at 7.2. Procalcitonin was at 0.09. The patient remains on IV Zosyn. Clinically however, the patient is improving. He is on room air oxygen with a pulse ox of 97%. Repeat chest x-ray was done on 11/25/2023 showed large consolidation involving the right lung probably somewhat improved and repeat chest x-ray will be obtained tomorrow. Possibility of malignancy cannot be completely excluded although it is felt to be less likely. On 11/27/2023, patient is being seen for a follow-up. The patient remains on room air oxygen. Denies having any significant respiratory distress. Repeat chest x-ray was done and the patient has a stable large area of masslike consolidation in the right upper lobe. The patient remains on IV Zosyn. As mentioned earlier, the procalcitonin level has been low. The electrolytes are all within normal limits. BUN is at 12 with a creatinine of 0.5. The patient has chronic lymphocytosis with a white cell count of 20.4 and a hemoglobin of 8.5. No altered mentation. ID is on the case. He denies having any chest pain. No significant sputum production. No nausea vomiting or diarrhea or abdominal pain. No altered mentation. Objective - Vital Signs Vital signs: Vital Signs Temp 97.7 F 11/27/23 11:56 Pulse 79 11/27/23 11:56 Resp 16 11/27/23 11:56 BP 124/79 11/27/23 11:56 Pulse Ox 98 11/27/23 11:56 FiO2 Intake & Output 11/26/23 11/27/23 11/27/23 18:59 06:59 18:59 Intake Total 780 Output Total 850 Balance 780 -850 Intake: Oral 780 Output: Urine 850 Other: Voiding Method Toilet Urinal Toilet Urinal Urinal # Voids 5 - Exam No acute distress, oriented 3. No supplemental oxygen. Room air oxygen HEENT examination is grossly unremarkable. Mucous membranes are moist. No oral lesions. Neck supple. Full range of motion. No adenopathy thyromegaly or neck vein dis tention. Cardiovascular examination reveals regular rhythm rate. S1-S2 normal. No S3 or S4. No discernible murmur noted. Lungs reveal scattered mild rhonchi. No wheezes or crackles. Breath sounds equal. Abdomen soft bowel sounds are heard. No masses or tenderness. Extremities are intact. No cyanosis clubbing or edema. Skin is without rash or lesion. Neurologic examination is brief but nonfocal. - Labs CBC & Chem 7: 11/27/23 04:00 11/27/23 04:00 Labs: Abnormal Lab Results - Last 24 Hours (Table) 11/26/23 11/27/23 11/27/23 Range/Units 04:24 04:00 04:00 WBC 24.38 H 20.46 H (4.50-10.00) X 10*3/uL RBC 3.68 L 3.52 L (4.40-5.60) X 10*6/uL Hgb 9.0 L 8.5 L (13.0-17.0) g/dL Hct 29.5 L 28.3 L (39.6-50.0) % MCH 24.5 L 24.1 L (27.0-32.0) pg MCHC 30.5 L 30.0 L (32.0-37.0) g/dL RDW 16.3 H 16.7 H (11.5-14.5) % Plt Count 755 H 742 H (140-440) X 10*3/uL Lymphocytes # (Manual) 15.85 H 15.14 H (0.90-5.00) X 10*3/uL Monocytes # (Manual) 0 L (0.20-1.00) X 10*3/uL Eosinophils # (Manual) 0.49 H 0 L (0.04-0.35) X 10*3/uL Smudge Cells Present A Creatinine 0.5 L (0.6-1.5) mg/dL BUN/Creatinine Ratio 24.40 H (12.00-20.00) Ratio Total Bilirubin <0.2 L (0.3-1.2) mg/dL ALT <5 L (10-49) U/L Total Protein 5.5 L (6.2-8.2) g/dL Albumin 2.9 L (3.8-4.9) g/dL Albumin/Globulin Ratio 1.12 L (1.60-3.17) Ratio Microbiology - Last 24 Hours (Table) 11/21/23 19:35 Blood Culture - Final Blood Assessment and Plan Plan: Right lower and upper lobe lung consolidation/masslike opacities, differential includes infectious process with early abscess or malignancy. Repeat chest x- ray from today shows no significant change in the right upper lobe consolidation. 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 He is currently afebrile. He is currently on room air oxygen. Chronic leukocytosis, secondary to CLL. The patient has lymphocytosis. History of CLL. Hiatal hernia. History of a Parkinson's disease. Chronic dysphagia. History of acquired bronchiectasis. History of right lower lobe pleural-based pulmonary nodule. Plan: Chest x-ray findings are unchanged. Patient is currently on room air oxygen The patient continues on Zosyn. Clinically he is feeling better. The patient will have a repeat chest x-ray continues to show a mass/infiltrate, right upper lobe. Bronchoscopy if there is incomplete filling of the right lung masslike consolidation. Will continue to follow
--- NOTE | 2023-11-28 07:29 | XR ---
EXAMINATION TYPE: XR chest 1V DATE OF EXAM: 11/28/2023 COMPARISON: 11/27/2023 HISTORY: Pneumonia TECHNIQUE: Single frontal view of the chest is obtained. FINDINGS: Large area of consolidation involving the right lung is stable. Left lung clear. Heart siz e normal. Diffuse osteopenia. Mild AC joint arthropathy and degenerative change of the spine. Basilar subsegmental scarring or atelectasis. IMPRESSION: Large area of right upper and lower lobe consolidation or mass is stable. [facility], , 11/28/2023 7:26 AM
--- NOTE | 2023-11-28 07:35 | CA ---
Transthoracic Echo Report Name: Jessica Pathak Age: 68 Gender: M : 1955 Exam Date: 11/27/2023 13:11 Exam Location: [facility] Ht (in): 71 Wt (lb): 136 Ordering Physician: Michael Foster MD Attending/Referring Phys: Cleaner Philly Wick RDCS Procedure CPT: Indications: dizziness Cardiac Hx: Technical Quality: Good Contrast 1: Total Dose (mL): Contrast 2: Total Dose (mL): MEASUREMENTS (Male / Female) Normal Values 2D ECHO LV Diastolic Diameter PLAX 4.7 cm 4.2 - 5.9 / 3.9 - 5.3 cm LV Systolic Diameter PLAX 3.1 cm IVS Diastolic Thickness 1.1 cm 0.6 - 1.0 / 0.6 - 0.9 cm LVPW Diastolic Thickness 0.9 cm 0.6 - 1.0 / 0.6 - 0.9 cm LV Relative Wall Thickness 0.4 RV Internal Dim ED PLAX 3.4 cm LA Systolic Diameter LX 3.4 cm 3.0 - 4.0 / 2.7 - 3.8 cm LV Diastolic Volume MOD 4C 42.4 cm??? LV Systolic Volume MOD 4C 13.6 cm??? LV Ejection Fraction MOD 4C 67.9 % LV Cardiac Index MOD 4C 1337.5 cm???/min???m??? LV Diastolic Length 4C 8.5 cm LV Systolic Length 4C 7.2 cm LV Diastolic Volume MOD 2C 101.3 cm??? LV Systolic Volume MOD 2C 43.7 cm??? LV Ejection Fraction MOD 2C 56.8 % LV Cardiac Index MOD 2C 2671.5 cm???/min???m??? LV Diastolic Length 2C 8.8 cm LV Systolic Length 2C 7.1 cm M-MODE Aortic Root Diameter MM 3.6 cm LA Systolic Diameter MM 2.5 cm LA Ao Ratio MM 0.7 DOPPLER AV Peak Velocity 107.7 cm/s AV Peak Gradient 4.6 mmHg Mitral E Point Velocity 77.8 cm/s Mitral A Point Velocity 58.3 cm/s Mitral E to A Ratio 1.3 MV Deceleration Time 190.7 ms MV E' Velocity 8.9 cm/s Mitral E to MV E' Ratio 8.8 TR Peak Velocity 288.0 cm/s TR Peak Gradient 33.2 mmHg Right Ventricular Systolic Press 43.2 mmHg FINDINGS Left Ventricle Left ventricular ejection fraction is estimated at 55-60 %. Left ventricular cavity size normal. Left ventricular wall thickness normal. Normal left ventricular wall motion. Right Ventricle Mild right ventricular dilatation .Mild pulmonary hypertension. Right Atrium Right atrium not well visualized. No right atrial thrombus or mass seen. Left Atrium Normal left atrial size. No left atrial thrombus or mass present. Mitral Valve Structurally normal mitral valve. No mitral stenosis, regurgitation or prolapse. Aortic Valve Trileaflet aortic valve. No aortic valve stenosis or regurgitation. Tricuspid Valve Structurally normal tricuspid valve. Pulmonic Valve Pulmonic valve not well visualized. Pericardium No pericardial or pleural effusion. Aorta Normal size aortic root and proximal ascending aorta. CONCLUSIONS Normal biventricular systolic function Previewed by: Dr. Jose Maldonado MD (Electronically Signed) Final Date: 28 November 2023 07:34
[2023-11-28 09:04] LABS: HCT 31.6 % (39.6-50.0); HGB 9.4 g/dL (13.0-17.0); MCH 24.1 pg (27.0-32.0); MCHC 29.7 g/dL (32.0-37.0); Mean Platelet Volume 10.1 FL (9.5-12.2); NRBC Per 100 WBC 0 X 10*3/uL (0.00-0.01); Platelet Count 683 X 10*3/uL (140-440); RDW 17.1 % (11.5-14.5); WBC 18.87 X 10*3/uL (4.50-10.00)
[2023-11-28 09:52] LABS: ALT <5 U/L (10-49); AST 19 U/L (14-35); Albumin 2.9 g/dL (3.8-4.9); Albumin/Globulin Ratio 1.04 Ratio (1.60-3.17); Alkaline Phosphatase 105 U/L (41-126); Blood Urea Nitrogen 10.2 mg/dL (9.0-27.0); Carbon Dioxide 27.2 mmol/L (21.6-31.8); Chloride 101 mmol/L (96-109); Globulin 2.8 g/dL (1.6-3.3); Glucose 80 mg/dL (70-110); Potassium 4.6 mmol/L (3.5-5.5); Sodium 137 mmol/L (135-145); Total Bilirubin <0.2 mg/dL (0.3-1.2); Total Protein 5.7 g/dL (6.2-8.2)
[2023-11-28 11:14] LABS: Basophils # (M) 0.19 X 10*3/uL (0.00-0.10); Eosinophils # (M) 0.57 X 10*3/uL (0.04-0.35); Hypochromasia (M) 2+; Microcytosis (M) 2+; Monocytes # (M) 0.38 X 10*3/uL (0.20-1.00); Neutrophils # (M) 6.04 X 10*3/uL (1.80-7.70); Neutrophils % (M) 32 %
--- NOTE | 2023-11-28 16:59 | P.PN ---
Subjective Progress Note Date: 11/28/23 Jessica Pathak, is a 68-year-old male who presented to [facility] emergency room with a chief complaint of worsening shortness of breath, and a new 3.2 cm mass or focal consolidation with ill-defined margins in the right lower lobe on recent CT scan of the chest. Patient has a known history of chronic lymphocytic leukemia followed by oncology he also has a known history of Parkinson disease and history of bronchiectasis, he had a previous history of right lower lobe pleural-based pulmonary nodule followed by pulmonary as outpatient. He was evaluated in the emergency room vital examination on presentation revealed a temperature of 98.6 pulse 98 respirations 16 blood pressure 105/67 pulse ox 93% on room air Laboratory data revealed a white blood count of 28.8 hemoglobin 10.9 platelet count 822 BUN 19 creatinine 0.59 Testing in the emergency room revealed Patient was admitted to medical floor for further evaluation and treatment On 11/23/2023 patient is alert and oriented x 3. Patient reports improvement with shortness of breath but does report he does get short of breath with activity. Patient margaux on antibiotics azithromycin and Zosyn. Possible plans for bronchoscopy today per pulmonary. At this time patient denies chest pain or shortness of breath. Patient denies nausea vomiting or diarrhea. Patient denies any urinary burning or frequency. Current vital signs temp 97.7, heart rate 84, respiratory rate 16, blood pressure 117/74 with a pulse ox of 97% on room air. On 11/24/2023 patient was seen and examined on the medical floor he is alert and oriented x 3 in no apparent distress there is no fever or chills no headache or dizziness he is still having some cough and shortness of breath with activity otherwise he denies any complaints there is no fever or chills no headache or dizziness no chest pain no nausea or vomiting no abdominal pain no diarrhea and no urinary symptoms. At this time we will continue with IV antibiotics, decrease IV fluid, will continue to follow closely. On 11/25/2023 patient is alert and oriented x 3. Patient reports improvement with cough and shortness of breath. Patient remains on IV Zosyn. White blood cell remains elevated despite antibiotic treatment will consult infectious disease services. Family at bedside family expresses concerns about wanting bronchoscopy completed during hospital stay. Will await further recommendations from pulmonary services. Repeat chest x-ray has been ordered this a.m. All questions answered. Patient denies chest pain or shortness of breath. Patient denies nausea vomiting or diarrhea. Patient denies any urinary burning or frequency. On 11/26/2023 patient was seen and examined on the medical floor he is alert and oriented x 3 in no apparent distress he is complaining of cough and complaining of dizziness today otherwise he denies any complaints there is no fever or c hills no headache no chest pain no shortness of breath no nausea or vomiting no abdominal pain no diarrhea and no urinary symptoms. At this time will check echocardiogram in regard to dizziness, awaiting further recommendation from infectious disease and pulmonary, white blood count remains elevated at 24,000 On 11/27/2023 patient is alert and oriented x 3. 2D echo has been ordered. Patient remains on IV Zosyn. Repeat chest x-ray has been ordered awaiting further recommendations from pulmonary services. Infectious disease services following for leukocytosis. At this time patient denies chest pain or shortness of breath. Patient denies nausea vomiting or diarrhea. Patient denies any urinary burning or frequency On 11/28/2023 patient was seen and examined on the medical floor he is alert and oriented x 3 in no apparent distress he is complaining of cough and complaining of dizziness today otherwise he denies any complaints there is no fever or chills no headache no chest pain no shortness of breath no nausea or vomiting no abdominal pain no diarrhea and no urinary symptoms. Patient is being evaluated by pulmonary for possible bronchoscopy. Objective - Vital Signs Vital signs: Vital Signs Temp 97.6 F 11/28/23 11:52 Pulse 85 11/28/23 11:52 Resp 16 11/28/23 11:52 BP 147/87 11/28/23 11:52 Pulse Ox 98 11/28/23 09:27 FiO2 Intake & Output 11/27/23 11/28/23 11/28/23 18:59 06:59 18:59 Intake Total 200 Output Total 1100 Balance 200 -1100 Intake: Intake, IV Titration 200 Amount Piperacillin-Tazobactam 3 200 .375 gm In Sodium Chloride 0.9% 100 ml @ 25 mls/hr IVPB Q8H [facility] Rx#: [id number] Output: Urine 1100 Other: Voiding Method Toilet Urinal Urinal Urinal - Exam In general patient is alert and oriented x 3 in no distress HEENT head normocephalic and atraumatic Neck is supple no JVD no goiter no lymphadenopathy no carotid bruit Chest examination is clear to auscultation no crackles no wheezing Cardiac exam reveals regular heart sounds S1 and S2 no gallops no murmurs Abdomen is soft nontender no organomegaly with normal bowel sounds Extremity exam reveals no edema no cyanosis or clubbing Neurological examination reveals no gross focal deficits - Labs CBC & Chem 7: 11/28/23 05:46 11/28/23 05:46 Labs: Abnormal Lab Results - Last 24 Hours (Table) 11/28/23 11/28/23 Range/Units 05:46 05:46 WBC 18.87 H (4.50-10.00) X 10*3/uL RBC 3.90 L (4.40-5.60) X 10*6/uL Hgb 9.4 L (13.0-17.0) g/dL Hct 31.6 L (39.6-50.0) % MCH 24.1 L (27.0-32.0) pg MCHC 29.7 L (32.0-37.0) g/dL RDW 17.1 H (11.5-14.5) % Plt Count 683 H (140-440) X 10*3/uL Lymphocytes # (Manual) 11.70 H (0.90-5.00) X 10*3/uL Eosinophils # (Manual) 0.57 H (0.04-0.35) X 10*3/uL Basophils # (Manual) 0.19 H (0.00-0.10) X 10*3/uL Hypochromasia (manual) 2+ A Microcytosis (manual) 2+ A Total Bilirubin <0.2 L (0.3-1.2) mg/dL ALT <5 L (10-49) U/L Total Protein 5.7 L (6.2-8.2) g/dL Albumin 2.9 L (3.8-4.9) g/dL Albumin/Globulin Ratio 1.04 L (1.60-3.17) Ratio Assessment and Plan Plan: Right lower lobe and right upper lobe consolidation opacities on recent CT scan done as outpatient, patient is admitted to medical floor pulmonary consultation was requested Underlying history of chronic lymphocytic leukemia Underlying history of Parkinson disease Underlying history of bronchiectasis Underlying history of chronic dysphagia Underlying history of right lower lobe pulmonary nodule At this time patient is admitted to medical floor Home medications reviewed and reordered Pulmonary consultation was requested Infectious disease and oncology services following Echo ordered Will follow closely
--- NOTE | 2023-11-28 18:25 | P.PN ---
Subjective Progress Note Date: 11/28/23 Patient is a 68-year-old male with past medical history significant for lung nodules, bronchiectasis, Parkinson's disease, CLL. Patient follows in the pulmonary office with Dr. Morocho. Had a previous right lower lobe peripheral based nodule. PET scan done in 2019 concerning for inflammatory process. This was followed outpatient. Patient had a more recent outpatient CT of the chest demonstrating right lower and upper lobe lung consolidation/mass like opacities. He was directed to the emergency department by his oncologist, Dr. Hebert. It appears the patient has a 3.2 cm mass or focal parenchymal consolidation with ill-defined margins in the right lower lobe. The center of the mass is hypodense possibly indicating necrosis. There is a large area of consolidated opacity with air bronchograms and areas of decreased density in the right upper lobe. Findings are suspicious for neoplasm or inflammatory process with early abscess development. Incidental hiatal hernia noted. CBC: WBC count 28.8, hemoglobin 10.9, hematocrit 33.8, platelets 822. CMP: Sodium 135, potassium 4.8, chloride 96, serum bicarb 32, BUN 19, creatinine 0.58, glucose 101. Lactic 1.1. Normal saline infusing at 100 mL/h LFTs unremarkable. Troponin less than 0.012. NT proBNP 376. Negative for influenza, RSV, COVID. Currently, the patient is covered on empiric antibiotics. Procalcitonin level pending. Afebrile. Currently resting comfortably on room air. SpO2 94%. Nontoxic appearance. Over the last 2 weeks the patient has had a congested cough with green sputum production. Sputum is foul tasting. No hemoptysis. There is associated right sided thoracic level back pain. He denies any fevers or chills. He has had an approximately 18 pound weight loss over the last couple months. He has been very fatigued over the last couple weeks. No smoking history. Patient does have Parkinson's disease, and normally ambulates with walker. Occasionally has issues swallowing. Food gets stuck in his throat. [place]co quently coughs after eating. No dental infections. Denies drug or alcohol use. Progress note dated November 23, 2023. The patient is seen today in room 529. The patient feels better. Less short of breath. He is coughing, but not producing any phlegm. Cultures are thus far negative. Procalcitonin level was 0.16. He continues on azithromycin and Zosyn. Current labs include a white count of 24.3, hemoglobin 9.5, hematocrit 30.6, and a platelet count of 706,000. Cultures are thus far negative. Progress note dated November 24, 2023. The patient is seen this morning in room 529. The patient is on room air. Saturations are 95%. He is getting saline at 100 cc an hour. He continues on Zosyn. The patient had an uneventful night. He states that he is feeling better. He is coughing less, and producing less phlegm. No chest pain or chest discomfort. No fever or chills. No new labs today. Progress note dated November 25, 2023. 68-year-old male seen today in room 529. He is currently on room air. He is on Zosyn. He feels much better. Repeat chest x-ray will be ordered. His is in the room with him, and states that the patient is doing better. We are currently treating him for possible infection, involving the right upper lobe. Current new laboratory includes a sodium 136, potassium 4.5, chloride 99, CO2 27, BUN 9, creatinine 0.5. Sputum and blood cultures are currently negative or pending. Repeat chest x-ray continues to show a consolidation/mass, right upper lobe. 11/26/2023, patient is being seen for a follow-up. This is a 68-year-old male patient with known history of CLL and the patient is presenting with an extensive right lung pneumonia and the patient has developed a masslike consolidation involving the right lung. The white cell count is elevated and essentially consistent with lymphocytosis and the patient's lymphocytic count is in the order of 65% with a white cell count of 24 consistent with CLL. The electrolytes are all within normal limits. The patient is currently on room air oxygen. CRP was elevated at 7.2. Procalcitonin was at 0.09. The patient remains on IV Zosyn. Clinically however, the patient is improving. He is on room air oxygen with a pulse ox of 97%. Repeat chest x-ray was done on 11/25/2023 showed large consolidation involving the right lung probably somewhat improved and repeat chest x-ray will be obtained tomorrow. Possibility of malignancy cannot be completely excluded although it is felt to be less likely. On 11/27/2023, patient is being seen for a follow-up. The patient remains on room air oxygen. Denies having any significant respiratory distress. Repeat chest x-ray was done and the patient has a stable large area of masslike consolidation in the right upper lobe. The patient remains on IV Zosyn. As mentioned earlier, the procalcitonin level has been low. The electrolytes are all within normal limits. BUN is at 12 with a creatinine of 0.5. The patient has chronic lymphocytosis with a white cell count of 20.4 and a hemoglobin of 8.5. No altered mentation. ID is on the case. He denies having any chest pain. No significant sputum production. No nausea vomiting or diarrhea or abdominal pain. No altered mentation.. On today's evaluation of 11/28/2023, the patient is being seen for a follow-up. Clinically unchanged. Nevertheless, the chest x-ray still showing advanced consolidation in the right upper lobe. I had a nice discussion with the patient. We decided to do a bronchoscopy endobronchial lavage of the right upper lobe tomorrow. Meanwhile, the white cell count is gradually improved down to 18 and the patient has a hemoglobin of 9.4. The patient has significant lymphocytosis which is in the order of 62%. BUN is at 10 with a creatinine of 0.6 and a sodium level of 137. The patient remains on IV Zosyn. He remains on room air oxygen. He has significant kyphoscoliosis of the thoracolumbar spine. Minimal sputum production. The sputum cultures were negative. Blood pressure has been also negative. Objective - Vital Signs Vital signs: Vital Signs Temp 97.6 F 11/28/23 11:52 Pulse 85 11/28/23 11:52 Resp 16 11/28/23 11:52 BP 147/87 11/28/23 11:52 Pulse Ox 98 11/28/23 09:27 FiO2 Intake & Output 11/27/23 11/28/23 11/28/23 18:59 06:59 18:59 Intake Total 200 Output Total 1100 150 Balance 200 -1100 -150 Intake: Intake, IV Titration 200 Amount Piperacillin-Tazobactam 3 200 .375 gm In Sodium Chloride 0.9% 100 ml @ 25 mls/hr IVPB Q8H [facility] Rx#: [id number] Output: Urine 1100 150 Other: Voiding Method Toilet Urinal Urinal Urinal - Exam No acute distress, oriented 3. No supplemental oxygen. Room air oxygen HEENT examination is grossly unremarkable. Mucous membranes are moist. No oral lesions. Neck supple. Full range of motion. No adenopathy thyromegaly or neck vein distention. Cardiovascular examination reveals regular rhythm rate. S1-S2 normal. No S3 or S4. No discernible murmur noted. Lungs reveal scattered mild rhonchi. No wheezes or crackles. Breath sounds equal. Abdomen soft bowel sounds are heard. No masses or tenderness. Extremities are intact. No cyanosis clubbing or edema. Skin is without rash or lesion. Neurologic examination is brief but nonfocal. - Labs CBC & Chem 7: 11/28/23 05:46 11/28/23 05:46 Labs: Abnormal Lab Results - Last 24 Hours (Table) 11/28/23 11/28/23 Range/Units 05:46 05:46 WBC 18.87 H (4.50-10.00) X 10*3/uL RBC 3.90 L (4.40-5.60) X 10*6/uL Hgb 9.4 L (13.0-17.0) g/dL Hct 31.6 L (39.6-50.0) % MCH 24.1 L (27.0-32.0) pg MCHC 29.7 L (32.0-37.0) g/dL RDW 17.1 H (11.5-14.5) % Plt Count 683 H (140-440) X 10*3/uL Lymphocytes # (Manual) 11.70 H (0.90-5.00) X 10*3/uL Eosinophils # (Manual) 0.57 H (0.04-0.35) X 10*3/uL Basophils # (Manual) 0.19 H (0.00-0.10) X 10*3/uL Hypochromasia (manual) 2+ A Microcytosis (manual) 2+ A Total Bilirubin <0.2 L (0.3-1.2) mg/dL ALT <5 L (10-49) U/L Total Protein 5.7 L (6.2-8.2) g/dL Albumin 2.9 L (3.8-4.9) g/dL Albumin/Globulin Ratio 1.04 L (1.60-3.17) Ratio Assessment and Plan Plan: Right lower and upper lobe lung consolidation/masslike opacities, differential includes infectious process with early abscess or malignancy. Repeat chest x- ray from today shows no significant change in the right upper lobe consolidation. 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 He is currently afebrile. He is currently on room air oxygen. Chronic leukocytosis, secondary to CLL. The patient has lymphocytosis. History of CLL. Hiatal hernia. History of a Parkinson's disease. Chronic dysphagia. History of acquired bronchiectasis. History of right lower lobe pleural-based pulmonary nodule. Severe thoracolumbar kyphoscoliosis Plan: Chest x-ray findings are unchanged. Repeat chest x-ray over the past 48 hours shows no significant changes in the patient's right upper lobe consolidation. Based on his overall condition, I think is reasonable to do a bronchoscopy endobronchial lavage of the right upper lobe. Possibility of malignancy cannot be completely excluded. The purpose of the procedure is to rule out any microbial infections and the patient will have a bronchial lavage and the patient will be kept on IV Zosyn for now. No biopsies will be done Patient is currently on room air oxygen The patient continues on Zosyn. Clinically he is feeling better. The patient will have a repeat chest x-ray continues to show a mass/infiltrate, right upper lobe. Bronchoscopy will be scheduled for tomorrow and the patient will be kept n.p.o. after midnight.
[2023-11-29 08:49] LABS: HCT 30.8 % (39.6-50.0); HGB 9.3 g/dL (13.0-17.0); MCH 23.8 pg (27.0-32.0); MCHC 30.2 g/dL (32.0-37.0); Mean Platelet Volume 9.7 FL (9.5-12.2); NRBC Per 100 WBC 0 X 10*3/uL (0.00-0.01); Platelet Count 743 X 10*3/uL (140-440); RDW 17.2 % (11.5-14.5)
[2023-11-29 09:35] LABS: ALT 5 U/L (10-49); AST 18 U/L (14-35); Albumin 3.1 g/dL (3.8-4.9); Albumin/Globulin Ratio 1.15 Ratio (1.60-3.17); Alkaline Phosphatase 108 U/L (41-126); Calcium 9.1 mg/dL (8.7-10.3); Carbon Dioxide 27.7 mmol/L (21.6-31.8); Chloride 99 mmol/L (96-109); Globulin 2.7 g/dL (1.6-3.3); Glucose 85 mg/dL (70-110); Potassium 4.4 mmol/L (3.5-5.5); Sodium 136 mmol/L (135-145); Total Bilirubin <0.2 mg/dL (0.3-1.2); Total Protein 5.8 g/dL (6.2-8.2)
[2023-11-29 10:24] LABS: Basophils # (M) 0 X 10*3/uL (0.00-0.10); Eosinophils # (M) 0 X 10*3/uL (0.04-0.35); Lymphocytes # (M) 13.58 X 10*3/uL (0.90-5.00); Monocytes # (M) 0 X 10*3/uL (0.20-1.00); Neutrophils # (M) 14.72 X 10*3/uL (1.80-7.70); Neutrophils % (M) 52 %
--- NOTE | 2023-11-29 14:58 | P.PN ---
Subjective Progress Note Date: 11/29/23 Principal diagnosis: Hx CLL, lung nodules In f/u pt reports stable breathing, no fevers, N,V, denies pain. Objective - Vital Signs Vital signs: Vital Signs Temp 97.5 F L 11/29/23 12:21 Pulse 85 11/29/23 12:21 Resp 16 11/29/23 12:21 BP 116/74 11/29/23 12:21 Pulse Ox 97 11/29/23 12:21 FiO2 Intake & Output 11/28/23 11/29/23 11/29/23 18:59 06:59 18:59 Intake Total 240 780 Output Total 150 800 Balance 90 -20 Intake: Oral 240 780 Output: Urine 150 800 Other: Voiding Method Urinal Urinal Urinal # Voids 3 - Constitutional General appearance: Present: average body habitus, cooperative, no acute distress - EENT Eyes: Present: anicteric sclerae, EOMI ENT: Present: hearing grossly normal - Respiratory Details: resp even and unlabored - Cardiovascular Details: skin warm, well perfused - Peripheral edema leg Peripheral Edema: bilateral: None - Integumentary Integumentary: Present: pale - Neurologic Neurologic: Present: CNII-XII intact - Musculoskeletal Musculoskeletal: Present: generalized weakness - Psychiatric Psychiatric: Present: A&O x's 3, appropriate affect, intact judgment & insight - Labs CBC & Chem 7: 11/29/23 05:11 11/29/23 05:11 Labs: Abnormal Lab Results - Last 24 Hours (Table) 11/29/23 11/29/23 Range/Units 05:11 05:11 WBC 28.30 H (4.50-10.00) X 10*3/uL RBC 3.90 L (4.40-5.60) X 10*6/uL Hgb 9.3 L (13.0-17.0) g/dL Hct 30.8 L (39.6-50.0) % MCV 79.0 L (80.0-97.0) FL MCH 23.8 L (27.0-32.0) pg MCHC 30.2 L (32.0-37.0) g/dL RDW 17.2 H (11.5-14.5) % Plt Count 743 H (140-440) X 10*3/uL Neutrophils # (Manual) 14.72 H (1.80-7.70) X 10*3/uL Lymphocytes # (Manual) 13.58 H (0.90-5.00) X 10*3/uL Monocytes # (Manual) 0 L (0.20-1.00) X 10*3/uL Eosinophils # (Manual) 0 L (0.04-0.35) X 10*3/uL Creatinine 0.5 L (0.6-1.5) mg/dL Total Bilirubin <0.2 L (0.3-1.2) mg/dL ALT 5 L (10-49) U/L Total Protein 5.8 L (6.2-8.2) g/dL Albumin 3.1 L (3.8-4.9) g/dL Albumin/Globulin Ratio 1.15 L (1.60-3.17) Ratio - Imaging and Cardiology Chest x-ray: report reviewed echo report reviewed Assessment and Plan (1) CLL (chronic lymphocytic leukemia) Current Visit: Yes Status: Acute Priority: High Code(s): C91.10 - CHRONIC LYMPHOCYTIC LEUK OF B-CELL TYPE NOT ACHIEVE REMIS SNOMED Code(s): 10768815 (2) Mass of right lung Current Visit: Yes Status: Acute Priority: High Code(s): R91.8 - OTHER NONSPECIFIC ABNORMAL FINDING OF LUNG FIELD SNOMED Code(s): 944678951 Plan: CLL -Hx of, has been on observation -Elevation in WBC while acutely ill is not unusual, ALC is elevated. ANC also noted to have increased. Cont to monitor CBC for now Rt lung consolidation -Case discussed briefly with Pulm, plans for bronch-agree with plan. Progressive anemia, microcytic, hypochromic -Progressive since admit -Anemia work up ordered -Transfuse for Hgb <7 or if symptomatic
--- NOTE | 2023-11-29 14:59 | P.PN ---
Subjective Progress Note Date: 11/28/23 Principal diagnosis: Reason for follow-up is leukocytosis right upper lobe consolidation Patient is a 68-year-old male with a past medical history significant for parkinsonism osteoarthritis CLL never smoker presenting to the hospital for evaluation of increasing shortness of breath the patient did have a chest x-ray suggestive of right upper lobe consolidation did have elevated white count prompted this consultation. On today's evaluation that is 11/28/2023,the patient remains to be afebrile, patient is on room air not requiring supplemental oxygen and denies any shortness of breath no chest pain or any worsening cough.Patient denies having any nausea or vomiting, no abdominal pain and no diarrhea has been reported. Patient white count is down to 18.87, creatinine 0.6 Objective - Vital Signs Vital signs: Vital Signs Temp 97.6 F 11/28/23 11:52 Pulse 85 11/28/23 11:52 Resp 16 11/28/23 11:52 BP 147/87 11/28/23 11:52 Pulse Ox 98 11/28/23 09:27 FiO2 Intake & Output 11/27/23 11/28/23 11/28/23 18:59 06:59 18:59 Intake Total 200 Output Total 1100 Balance 200 -1100 Intake: Intake, IV Titration 200 Amount Piperacillin-Tazobactam 3 200 .375 gm In Sodium Chloride 0.9% 100 ml @ 25 mls/hr IVPB Q8H [facility] Rx#: [id number] Output: Urine 1100 Other: Voiding Method Toilet Urinal Urinal Urinal - Exam GENERAL DESCRIPTION: An elderly male lying in bed in no distress RESPIRATORY SYSTEM: Unlabored breathing , decreased breath sounds at bases HEART: S1 S2 regular rate and rhythm , ABDOMEN: Soft , no tenderness EXTREMITIES: No edema feet - Labs CBC & Chem 7: 11/29/23 05:11 11/29/23 05:11 Labs: Abnormal Lab Results - Last 24 Hours (Table) 11/28/23 11/28/23 Range/Units 05:46 05:46 WBC 18.87 H (4.50-10.00) X 10*3/uL RBC 3.90 L (4.40-5.60) X 10*6/uL Hgb 9.4 L (13.0-17.0) g/dL Hct 31.6 L (39.6-50.0) % MCH 24.1 L (27.0-32.0) pg MCHC 29.7 L (32.0-37.0) g/dL RDW 17.1 H (11.5-14.5) % Plt Count 683 H (140-440) X 10*3/uL Lymphocytes # (Manual) 11.70 H (0.90-5.00) X 10*3/uL Eosinophils # (Manual) 0.57 H (0.04-0.35) X 10*3/uL Basophils # (Manual) 0.19 H (0.00-0.10) X 10*3/uL Hypochromasia (manual) 2+ A Microcytosis (manual) 2+ A Total Bilirubin <0.2 L (0.3-1.2) mg/dL ALT <5 L (10-49) U/L Total Protein 5.7 L (6.2-8.2) g/dL Albumin 2.9 L (3.8-4.9) g/dL Albumin/Globulin Ratio 1.04 L (1.60-3.17) Ratio Assessment and Plan (1) Leukocytosis Current Visit: Yes Status: Acute Code(s): D72.829 - ELEVATED WHITE BLOOD CELL COUNT, UNSPECIFIED SNOMED Code(s): 791439651 (2) Pneumonia Current Visit: Yes Status: Acute Priority: High Code(s): J18.9 - PNEUMONIA, UNSPECIFIED ORGANISM SNOMED Code(s): 758063965 Plan: 1patient with elevated white count in this patient presenting to the hospital with increasing shortness of breath patient did have a CT in the outpatient setting suggestive of right upper lobe mass chest x-ray showing right upper lobe mass/consolidation patient not running any fever did have a normal procalcitonin and does not look toxic elevated white count more likely due to his underlying CLL rather than infectious etiology 2-patient did have a repeat procalcitonin and is 0.09 chest x-ray repeated today shows consolation to be about the same, patient benefit from from bronchoscopy transbronchial biopsy and lavage to rule out malignancy or atypical infectious etiology, which has been scheduled for tomorrow afternoon 3-patient white count is trending down and is down to 18,000 we will continue the patient on Zosyn and will monitor closely Dictation was produced using dragon dictation software. please excuse any grammatical, word or spelling errors. Time with Patient: Less than 30
--- NOTE | 2023-11-29 15:00 | P.PN ---
Subjective Progress Note Date: 11/29/23 Principal diagnosis: Reason for follow-up is leukocytosis right upper lobe consolidation Patient is a 68-year-old male with a past medical history significant for parkinsonism osteoarthritis CLL never smoker presenting to the hospital for evaluation of increasing shortness of breath the patient did have a chest x-ray suggestive of right upper lobe consolidation did have elevated white count prompted this consultation. On today's evaluation that is 11/29/2023, the patient continues to be afebrile, the patient is on room air and breathing comfortably, the Pt denies having any chest pain and the patient cough has decreased in intensity, the patient denies having any abdominal pain no vomiting or any diarrhea has been reported by the nursing staff. The patient white count is up to 28.30 creatinine 0.5 Objective - Vital Signs Vital signs: Vital Signs Temp 97.5 F L 11/29/23 12:21 Pulse 85 11/29/23 12:21 Resp 16 11/29/23 12:21 BP 116/74 11/29/23 12:21 Pulse Ox 97 11/29/23 12:21 FiO2 Intake & Output 11/28/23 11/29/23 11/29/23 18:59 06:59 18:59 Intake Total 240 780 Output Total 150 800 Balance 90 -20 Intake: Oral 240 780 Output: Urine 150 800 Other: Voiding Method Urinal Urinal Urinal # Voids 3 - Exam GENERAL DESCRIPTION: An elderly male lying in bed in no distress RESPIRATORY SYSTEM: Unlabored breathing , decreased breath sounds at bases HEART: S1 S2 regular rate and rhythm , ABDOMEN: Soft , no tenderness EXTREMITIES: No edema feet - Labs CBC & Chem 7: 11/29/23 05:11 11/29/23 05:11 Labs: Abnormal Lab Results - Last 24 Hours (Table) 11/29/23 11/29/23 Range/Units 05:11 05:11 WBC 28.30 H (4.50-10.00) X 10*3/uL RBC 3.90 L (4.40-5.60) X 10*6/uL Hgb 9.3 L (13.0-17.0) g/dL Hct 30.8 L (39.6-50.0) % MCV 79.0 L (80.0-97.0) FL MCH 23.8 L (27.0-32.0) pg MCHC 30.2 L (32.0-37.0) g/dL RDW 17.2 H (11.5-14.5) % Plt Count 743 H (140-440) X 10*3/uL Neutrophils # (Manual) 14.72 H (1.80-7.70) X 10*3/uL Lymphocytes # (Manual) 13.58 H (0.90-5.00) X 10*3/uL Monocytes # (Manual) 0 L (0.20-1.00) X 10*3/uL Eosinophils # (Manual) 0 L (0.04-0.35) X 10*3/uL Creatinine 0.5 L (0.6-1.5) mg/dL Total Bilirubin <0.2 L (0.3-1.2) mg/dL ALT 5 L (10-49) U/L Total Protein 5.8 L (6.2-8.2) g/dL Albumin 3.1 L (3.8-4.9) g/dL Albumin/Globulin Ratio 1.15 L (1.60-3.17) Ratio Assessment and Plan (1) Leukocytosis Current Visit: Yes Status: Acute Code(s): D72.829 - ELEVATED WHITE BLOOD CELL COUNT, UNSPECIFIED SNOMED Code(s): 629420761 (2) Pneumonia Current Visit: Yes Status: Acute Priority: High Code(s): J18.9 - PNEUMONIA, UNSPECIFIED ORGANISM SNOMED Code(s): 453527796 Plan: 1patient with elevated white count in this patient presenting to the hospital with increasing shortness of breath patient did have a CT in the outpatient setting suggestive of right upper lobe mass chest x-ray showing right upper lobe mass/consolidation patient not running any fever did have a normal procalcitonin and does not look toxic elevated white count more likely due to his underlying CLL rather than infectious etiology 2-patient did have a repeat procalcitonin and is 0.09 chest x-ray repeated today shows consolation to be about the same, patient benefit from from bronchoscopy transbronchial biopsy and lavage to rule out malignancy or atypical infectious etiology, which has been scheduled for this afternoon at 3 PM 3-patient white count which was trending down as of yesterday has been up to 28,000 today patient Zosyn fell off last night automatically, will restart the Zosyn await the bronchoscopy biopsy and culture. Family at the bedside questions were answered Dictation was produced using [employer] dictation software. please excuse any grammatical, word or spelling errors. Time with Patient: Less than 30
[2023-11-29] MEDS ORDERED: LIDOCAINE 1% INJ 10MG/ML (20 ML MDV) ONE (15:55)
[2023-11-29] MEDS ORDERED: PROPOFOL 10 MG/ML 20 ML VIAL IV ONE (15:55)
[2023-11-29 16:02] LABS: % Iron Saturation 9.21 (15.00-50.00)
[2023-11-29] MEDS: IV FLUID CONTINUATION 1,000 ML IV ONE (16:12)
[2023-11-29 16:32] LABS: Reticulocyte % 2.7 % (0.10-1.80)
--- NOTE | 2023-11-29 16:55 | P.PN ---
Subjective Progress Note Date: 11/29/23 Jessica Pathak, is a 68-year-old male who presented to [facility] emergency room with a chief complaint of worsening shortness of breath, and a new 3.2 cm mass or focal consolidation with ill-defined margins in the right lower lobe on recent CT scan of the chest. Patient has a known history of chronic lymphocytic leukemia followed by oncology he also has a known history of Parkinson disease and history of bronchiectasis, he had a previous history of right lower lobe pleural-based pulmonary nodule followed by pulmonary as outpatient. He was evaluated in the emergency room vital examination on presentation revealed a temperature of 98.6 pulse 98 respirations 16 blood pressure 105/67 pulse ox 93% on room air Laboratory data revealed a white blood count of 28.8 hemoglobin 10.9 platelet count 822 BUN 19 creatinine 0.59 Testing in the emergency room revealed Patient was admitted to medical floor for further evaluation and treatment On 11/23/2023 patient is alert and oriented x 3. Patient reports improvement with shortness of breath but does report he does get short of breath with activity. Patient margaux on antibiotics azithromycin and Zosyn. Possible plans for bronchoscopy today per pulmonary. At this time patient denies chest pain or shortness of breath. Patient denies nausea vomiting or diarrhea. Patient denies any urinary burning or frequency. Current vital signs temp 97.7, heart rate 84, respiratory rate 16, blood pressure 117/74 with a pulse ox of 97% on room air. On 11/24/2023 patient was seen and examined on the medical floor he is alert and oriented x 3 in no apparent distress there is no fever or chills no headache or dizziness he is still having some cough and shortness of breath with activity otherwise he denies any complaints there is no fever or chills no headache or dizziness no chest pain no nausea or vomiting no abdominal pain no diarrhea and no urinary symptoms. At this time we will continue with IV antibiotics, decrease IV fluid, will continue to follow closely. On 11/25/2023 patient is alert and oriented x 3. Patient reports improvement with cough and shortness of breath. Patient remains on IV Zosyn. White blood cell remains elevated despite antibiotic treatment will consult infectious disease services. Family at bedside family expresses concerns about wanting bronchoscopy completed during hospital stay. Will await further recommendations from pulmonary services. Repeat chest x-ray has been ordered this a.m. All questions answered. Patient denies chest pain or shortness of breath. Patient denies nausea vomiting or diarrhea. Patient denies any urinary burning or frequency. On 11/26/2023 patient was seen and examined on the medical floor he is alert and oriented x 3 in no apparent distress he is complaining of cough and complaining of dizziness today otherwise he denies any complaints there is no fever or c hills no headache no chest pain no shortness of breath no nausea or vomiting no abdominal pain no diarrhea and no urinary symptoms. At this time will check echocardiogram in regard to dizziness, awaiting further recommendation from infectious disease and pulmonary, white blood count remains elevated at 24,000 On 11/27/2023 patient is alert and oriented x 3. 2D echo has been ordered. Patient remains on IV Zosyn. Repeat chest x-ray has been ordered awaiting further recommendations from pulmonary services. Infectious disease services following for leukocytosis. At this time patient denies chest pain or shortness of breath. Patient denies nausea vomiting or diarrhea. Patient denies any urinary burning or frequency On 11/28/2023 patient was seen and examined on the medical floor he is alert and oriented x 3 in no apparent distress he is complaining of cough and complaining of dizziness today otherwise he denies any complaints there is no fever or chills no headache no chest pain no shortness of breath no nausea or vomiting no abdominal pain no diarrhea and no urinary symptoms. Patient is being evaluated by pulmonary for possible bronchoscopy. On 11/29/2023 patient was seen and examined on the medical floor he is alert and oriented x 3 in no apparent distress he is complaining of cough and complaining of dizziness today otherwise he denies any complaints there is no fever or chills no headache no chest pain no shortness of breath no nausea or vomiting no abdominal pain no diarrhea and no urinary symptoms. plan is for bronchoscopy per pulmonary. Objective - Vital Signs Vital signs: Vital Signs Temp 97.8 F 11/29/23 06:59 Pulse 86 11/29/23 06:59 Resp 16 11/29/23 06:59 BP 121/78 11/29/23 06:59 Pulse Ox 96 11/29/23 06:59 FiO2 Intake & Output 11/28/23 11/29/23 11/29/23 18:59 06:59 18:59 Intake Total 240 780 Output Total 150 800 Balance 90 -20 Intake: Oral 240 780 Output: Urine 150 800 Other: Voiding Method Urinal Urinal # Voids 3 - Exam In general patient is alert and oriented x 3 in no distress HEENT head normocephalic and atraumatic Neck is supple no JVD no goiter no lymphadenopathy no carotid bruit Chest examination is clear to auscultation no crackles no wheezing Cardiac exam reveals regular heart sounds S1 and S2 no gallops no murmurs Abdomen is soft nontender no organomegaly with normal bowel sounds Extremity exam reveals no edema no cyanosis or clubbing Neurological examination reveals no gross focal deficits - Labs CBC & Chem 7: 11/29/23 05:11 11/29/23 05:11 Labs: Abnormal Lab Results - Last 24 Hours (Table) 11/28/23 11/29/23 11/29/23 Range/Units 05:46 05:11 05:11 WBC 28.30 H (4.50-10.00) X 10*3/uL RBC 3.90 L (4.40-5.60) X 10*6/uL Hgb 9.3 L (13.0-17.0) g/dL Hct 30.8 L (39.6-50.0) % MCV 79.0 L (80.0-97.0) FL MCH 23.8 L (27.0-32.0) pg MCHC 30.2 L (32.0-37.0) g/dL RDW 17.2 H (11.5-14.5) % Plt Count 743 H (140-440) X 10*3/uL Lymphocytes # (Manual) 11.70 H (0.90-5.00) X 10*3/uL Eosinophils # (Manual) 0.57 H (0.04-0.35) X 10*3/uL Basophils # (Manual) 0.19 H (0.00-0.10) X 10*3/uL Hypochromasia (manual) 2+ A Microcytosis (manual) 2+ A Creatinine 0.5 L (0.6-1.5) mg/dL Total Bilirubin <0.2 L (0.3-1.2) mg/dL ALT 5 L (10-49) U/L Total Protein 5.8 L (6.2-8.2) g/dL Albumin 3.1 L (3.8-4.9) g/dL Albumin/Globulin Ratio 1.15 L (1.60-3.17) Ratio Assessment and Plan Plan: Right lower lobe and right upper lobe consolidation opacities on recent CT scan done as outpatient, patient is admitted to medical floor pulmonary consultation was requested Underlying history of chronic lymphocytic leukemia Underlying history of Parkinson disease Underlying history of bronchiectasis Underlying history of chronic dysphagia Underlying history of right lower lobe pulmonary nodule At this time patient is admitted to medical floor Home medications reviewed and reordered Pulmonary consultation was requested Infectious disease and oncology services following Echo ordered Will follow closely
[2023-11-29] MEDS: PIPERACILLIN-TAZOBACTAM 3.375 GM in SODIUM CHLORIDE 0.9% 100 ML IVPB SCH (17:34)
--- NOTE | 2023-11-29 20:13 | P.PN ---
Subjective Progress Note Date: 11/29/23 Patient is a 68-year-old male with past medical history significant for lung nodules, bronchiectasis, Parkinson's disease, CLL. Patient follows in the pulmonary office with Dr. Morocho. Had a previous right lower lobe peripheral based nodule. PET scan done in 2019 concerning for inflammatory process. This was followed outpatient. Patient had a more recent outpatient CT of the chest demonstrating right lower and upper lobe lung consolidation/mass like opacities. He was directed to the emergency department by his oncologist, Dr. Hebert. It appears the patient has a 3.2 cm mass or focal parenchymal consolidation with ill-defined margins in the right lower lobe. The center of the mass is hypodense possibly indicating necrosis. There is a large area of consolidated opacity with air bronchograms and areas of decreased density in the right upper lobe. Findings are suspicious for neoplasm or inflammatory process with early abscess development. Incidental hiatal hernia noted. CBC: WBC count 28.8, hemoglobin 10.9, hematocrit 33.8, platelets 822. CMP: Sodium 135, potassium 4.8, chloride 96, serum bicarb 32, BUN 19, creatinine 0.58, glucose 101. Lactic 1.1. Normal saline infusing at 100 mL/h LFTs unremarkable. Troponin less than 0.012. NT proBNP 376. Negative for influenza, RSV, COVID. Currently, the patient is covered on empiric antibiotics. Procalcitonin level pending. Afebrile. Currently resting comfortably on room air. SpO2 94%. Nontoxic appearance. Over the last 2 weeks the patient has had a congested cough with green sputum production. Sputum is foul tasting. No hemoptysis. There is associated right sided thoracic level back pain. He denies any fevers or chills. He has had an approximately 18 pound weight loss over the last couple months. He has been very fatigued over the last couple weeks. No smoking history. Patient does have Parkinson's disease, and normally ambulates with walker. Occasionally has issues swallowing. Food gets stuck in his throat. Pacheco quently coughs after eating. No dental infections. Denies drug or alcohol use. Progress note dated November 23, 2023. The patient is seen today in room 529. The patient feels better. Less short of breath. He is coughing, but not producing any phlegm. Cultures are thus far negative. Procalcitonin level was 0.16. He continues on azithromycin and Zosyn. Current labs include a white count of 24.3, hemoglobin 9.5, hematocrit 30.6, and a platelet count of 706,000. Cultures are thus far negative. Progress note dated November 24, 2023. The patient is seen this morning in room 529. The patient is on room air. Saturations are 95%. He is getting saline at 100 cc an hour. He continues on Zosyn. The patient had an uneventful night. He states that he is feeling better. He is coughing less, and producing less phlegm. No chest pain or chest discomfort. No fever or chills. No new labs today. Progress note dated November 25, 2023. 68-year-old male seen today in room 529. He is currently on room air. He is on Zosyn. He feels much better. Repeat chest x-ray will be ordered. His is in the room with him, and states that the patient is doing better. We are currently treating him for possible infection, involving the right upper lobe. Current new laboratory includes a sodium 136, potassium 4.5, chloride 99, CO2 27, BUN 9, creatinine 0.5. Sputum and blood cultures are currently negative or pending. Repeat chest x-ray continues to show a consolidation/mass, right upper lobe. 11/26/2023, patient is being seen for a follow-up. This is a 68-year-old male patient with known history of CLL and the patient is presenting with an extensive right lung pneumonia and the patient has developed a masslike consolidation involving the right lung. The white cell count is elevated and essentially consistent with lymphocytosis and the patient's lymphocytic count is in the order of 65% with a white cell count of 24 consistent with CLL. The electrolytes are all within normal limits. The patient is currently on room air oxygen. CRP was elevated at 7.2. Procalcitonin was at 0.09. The patient remains on IV Zosyn. Clinically however, the patient is improving. He is on room air oxygen with a pulse ox of 97%. Repeat chest x-ray was done on 11/25/2023 showed large consolidation involving the right lung probably somewhat improved and repeat chest x-ray will be obtained tomorrow. Possibility of malignancy cannot be completely excluded although it is felt to be less likely. On 11/27/2023, patient is being seen for a follow-up. The patient remains on room air oxygen. Denies having any significant respiratory distress. Repeat chest x-ray was done and the patient has a stable large area of masslike consolidation in the right upper lobe. The patient remains on IV Zosyn. As mentioned earlier, the procalcitonin level has been low. The electrolytes are all within normal limits. BUN is at 12 with a creatinine of 0.5. The patient has chronic lymphocytosis with a white cell count of 20.4 and a hemoglobin of 8.5. No altered mentation. ID is on the case. He denies having any chest pain. No significant sputum production. No nausea vomiting or diarrhea or abdominal pain. No altered mentation.. On today's evaluation of 11/28/2023, the patient is being seen for a follow-up. Clinically unchanged. Nevertheless, the chest x-ray still showing advanced consolidation in the right upper lobe. I had a nice discussion with the patient. We decided to do a bronchoscopy endobronchial lavage of the right upper lobe tomorrow. Meanwhile, the white cell count is gradually improved down to 18 and the patient has a hemoglobin of 9.4. The patient has significant lymphocytosis which is in the order of 62%. BUN is at 10 with a creatinine of 0.6 and a sodium level of 137. The patient remains on IV Zosyn. He remains on room air oxygen. He has significant kyphoscoliosis of the thoracolumbar spine. Minimal sputum production. The sputum cultures were negative. Blood pressure has been also negative. 11/29/2023, the patient is essentially unchanged. The patient remains on IV Zosyn. The chest x-ray showed a persistent right upper lobe consolidation and for that reason a bronchoscopy endobronchial lavage of the right upper lobe is scheduled to be done today. The patient remains on room air oxygen. He has a congested cough. The white cell count of 28 essentially lymphocytosis with a hemoglobin 9.3. Sodium is at 136, potassium of 4.4, bicarbonate 27 with a BUN of 9 and a creatinine of 0.5. The serum iron is at 21. Procalcitonin level is at 0.09. Patient is also being evaluated by infectious disease. Patient is breathing comfortably in bed. Objective - Vital Signs Vital signs: Vital Signs Temp 97.8 F 11/29/23 06:59 Pulse 86 11/29/23 06:59 Resp 16 11/29/23 06:59 BP 121/78 11/29/23 06:59 Pulse Ox 96 11/29/23 06:59 FiO2 Intake & Output 11/28/23 11/29/23 11/29/23 18:59 06:59 18:59 Intake Total 240 780 Output Total 150 800 Balance 90 -20 Intake: Oral 240 780 Output: Urine 150 800 Other: Voiding Method Urinal Urinal # Voids 3 - Exam No acute distress, oriented 3. No supplemental oxygen. Room air oxygen HEENT examination is grossly unremarkable. Mucous membranes are moist. No oral lesions. Neck supple. Full range of motion. No adenopathy thyromegaly or neck vein distention. Cardiovascular examination reveals regular rhythm rate. S1-S2 normal. No S3 or S4. No discernible murmur noted. Lungs reveal scattered mild rhonchi. No wheezes or crackles. Breath sounds equal. Abdomen soft bowel sounds are heard. No masses or tenderness. Extremities are intact. No cyanosis clubbing or edema. Skin is without rash or lesion. Neurologic examination is brief but nonfocal. - Labs CBC & Chem 7: 11/29/23 05:11 11/29/23 05:11 Labs: Abnormal Lab Results - Last 24 Hours (Table) 11/29/23 11/29/23 Range/Units 05:11 05:11 WBC 28.30 H (4.50-10.00) X 10*3/uL RBC 3.90 L (4.40-5.60) X 10*6/uL Hgb 9.3 L (13.0-17.0) g/dL Hct 30.8 L (39.6-50.0) % MCV 79.0 L (80.0-97.0) FL MCH 23.8 L (27.0-32.0) pg MCHC 30.2 L (32.0-37.0) g/dL RDW 17.2 H (11.5-14.5) % Plt Count 743 H (140-440) X 10*3/uL Neutrophils # (Manual) 14.72 H (1.80-7.70) X 10*3/uL Lymphocytes # (Manual) 13.58 H (0.90-5.00) X 10*3/uL Monocytes # (Manual) 0 L (0.20-1.00) X 10*3/uL Eosinophils # (Manual) 0 L (0.04-0.35) X 10*3/uL Creatinine 0.5 L (0.6-1.5) mg/dL Total Bilirubin <0.2 L (0.3-1.2) mg/dL ALT 5 L (10-49) U/L Total Protein 5.8 L (6.2-8.2) g/dL Albumin 3.1 L (3.8-4.9) g/dL Albumin/Globulin Ratio 1.15 L (1.60-3.17) Ratio Assessment and Plan Plan: Right upper lobe lung consolidation/masslike opacities, differential includes infectious process with early abscess or malignancy. Repeat chest x-ray from today shows no significant change in the right upper lobe consolidation. 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 He is currently afebrile. He is currently on room air oxygen. Chronic leukocytosis, secondary to CLL. The patient has lymphocytosis. History of CLL. Hiatal hernia. History of a Parkinson's disease. Chronic dysphagia. History of acquired bronchiectasis. History of right lower lobe pleural-based pulmonary nodule. Severe thoracolumbar kyphoscoliosis Plan: Will proceed with a bronchoscopy and will perform the bronchial lavage of the right upper lobe. Noted his right upper lobe consolidation is new finding compared to May 2023. Back then, the CAT scan findings were essentially negative in the right upper lobe. As such, this most likely infectious rather than malignant. The bronchoscopy and lavage of the right upper lobe will be done due to persistent and unchanged nature of the right upper lobe consolidation/mass. Patient is currently on room air oxygen The patient continues on Zosyn. Clinically he is feeling better.
--- NOTE | 2023-11-29 20:19 | P.PCN ---
Date of Procedure: 11/29/23 Preoperative Diagnosis: Right upper lobe consolidation Postoperative Diagnosis: Right upper lobe consolidation/pneumonia Procedure(s) Performed: Bronchoscopy/flexible and a bronchoalveolar lavage of the right upper lobe Anesthesia: MAC Surgeon: Angel Dow IV fluids (ml): 0 Pathology: other Condition: stable Disposition: floor Operative Findings: Procedure: Pre-Anesthesia Assessment: A History and Physical has been performed. The patients medications, allergies and sensitivities have been reviewed.The risks and benefits of the procedure and the sedation options and risks were discussed with the patient. All questions were answered and informed consent was obtained. Patient identification and proposed procedure were verified priorto the procedure by the physician, the nurse and the anesthesiologist. The procedure was verified in the pre-procedure area. Mental Status Examination: normal. Airway Examination: normal oropharyngeal airway. After obtaining informed consent, the bronchoscope was introduced through the right nostril and advanced to the tracheobronchial tree of both lungs. The procedure wasaccomplished without difficulty. The patient tolerated the procedure well. Findings: - The nasopharynx/oropharynx appears normal. The larynx appears normal. The vocal cords appear normal. The subglottic space is normal. The trachea is of normal caliber. The gildardo is sharp. The tracheobronchial tree of the right lung was examined to at least the first subsegmental level. Bronchial mucosa and anatomy in the right lung are normal; there are no endobronchial lesions, there was evidence of secretions in the right upper lobe bronchus and some other secretions occupying the bronchus intermedius and the right lower lobe bronchus. Therapeutic airway suctioning was done. Examination of the left lung including left mainstem bronchus and left upper and left lower bronchus was all within normal limits. -The bronchoscope was wedged into the anterior segment of the right upper lobe. The bronchial lavage was done. A total of 60 cc of saline was infused at around 20 cc was aspirated without any major difficulties. No complications No bleeding The patient was transferred to recovery in stable condition...
[2023-11-30 07:31] LABS: Anisocytosis Slight; Basophils # (A) 0.1 k/uL (0-0.2); Basophils % (A) 0 %; Eosinophils # (A) 0.3 k/uL (0-0.7); Eosinophils % (A) 2 %; HGB 9.6 gm/dL (13.0-17.5); Hypochromasia Marked; Lymphocytes # (A) 9.3 k/uL (1.0-4.8); Lymphocytes % (A) 46 %; MCH 24.7 pg (25.0-35.0); MCV 82.1 fL (80.0-100.0); Mean Platelet Volume 7.7; Monocytes # (A) 0.6 k/uL (0-1.0); Monocytes % (A) 3 %; Neutrophils # (A) 9.3 k/uL (1.3-7.7); Neutrophils % (A) 47 %; Platelet Count 619 k/uL (150-450); RDW 16.6 % (11.5-15.5)
[2023-11-30 08:55] LABS: Rouleaux Present
--- NOTE | 2023-11-30 09:26 | P.PN ---
Subjective Progress Note Date: 11/30/23 Jessica Pathak, is a 68-year-old male who presented to [facility] emergency room with a chief complaint of worsening shortness of breath, and a new 3.2 cm mass or focal consolidation with ill-defined margins in the right lower lobe on recent CT scan of the chest. Patient has a known history of chronic lymphocytic leukemia followed by oncology he also has a known history of Parkinson disease and history of bronchiectasis, he had a previous history of right lower lobe pleural-based pulmonary nodule followed by pulmonary as outpatient. He was evaluated in the emergency room vital examination on presentation revealed a temperature of 98.6 pulse 98 respirations 16 blood pressure 105/67 pulse ox 93% on room air Laboratory data revealed a white blood count of 28.8 hemoglobin 10.9 platelet count 822 BUN 19 creatinine 0.59 Testing in the emergency room revealed Patient was admitted to medical floor for further evaluation and treatment On 11/23/2023 patient is alert and oriented x 3. Patient reports improvement with shortness of breath but does report he does get short of breath with activity. Patient margaux on antibiotics azithromycin and Zosyn. Possible plans for bronchoscopy today per pulmonary. At this time patient denies chest pain or shortness of breath. Patient denies nausea vomiting or diarrhea. Patient denies any urinary burning or frequency. Current vital signs temp 97.7, heart rate 84, respiratory rate 16, blood pressure 117/74 with a pulse ox of 97% on room air. On 11/24/2023 patient was seen and examined on the medical floor he is alert and oriented x 3 in no apparent distress there is no fever or chills no headache or dizziness he is still having some cough and shortness of breath with activity otherwise he denies any complaints there is no fever or chills no headache or dizziness no chest pain no nausea or vomiting no abdominal pain no diarrhea and no urinary symptoms. At this time we will continue with IV antibiotics, decrease IV fluid, will continue to follow closely. On 11/25/2023 patient is alert and oriented x 3. Patient reports improvement with cough and shortness of breath. Patient remains on IV Zosyn. White blood cell remains elevated despite antibiotic treatment will consult infectious disease services. Family at bedside family expresses concerns about wanting bronchoscopy completed during hospital stay. Will await further recommendations from pulmonary services. Repeat chest x-ray has been ordered this a.m. All questions answered. Patient denies chest pain or shortness of breath. Patient denies nausea vomiting or diarrhea. Patient denies any urinary burning or frequency. On 11/26/2023 patient was seen and examined on the medical floor he is alert and oriented x 3 in no apparent distress he is complaining of cough and complaining of dizziness today otherwise he denies any complaints there is no fever or c hills no headache no chest pain no shortness of breath no nausea or vomiting no abdominal pain no diarrhea and no urinary symptoms. At this time will check echocardiogram in regard to dizziness, awaiting further recommendation from infectious disease and pulmonary, white blood count remains elevated at 24,000 On 11/27/2023 patient is alert and oriented x 3. 2D echo has been ordered. Patient remains on IV Zosyn. Repeat chest x-ray has been ordered awaiting further recommendations from pulmonary services. Infectious disease services following for leukocytosis. At this time patient denies chest pain or shortness of breath. Patient denies nausea vomiting or diarrhea. Patient denies any urinary burning or frequency On 11/28/2023 patient was seen and examined on the medical floor he is alert and oriented x 3 in no apparent distress he is complaining of cough and complaining of dizziness today otherwise he denies any complaints there is no fever or chills no headache no chest pain no shortness of breath no nausea or vomiting no abdominal pain no diarrhea and no urinary symptoms. Patient is being evaluated by pulmonary for possible bronchoscopy. On 11/29/2023 patient was seen and examined on the medical floor he is alert and oriented x 3 in no apparent distress he is complaining of cough and complaining of dizziness today otherwise he denies any complaints there is no fever or chills no headache no chest pain no shortness of breath no nausea or vomiting no abdominal pain no diarrhea and no urinary symptoms. plan is for bronchoscopy per pulmonary. on 11/29/2024 for patient's alert and oriented 3. Patient underwent bronchoscopy yesterday per pulmonary services. Patient reports improvement with cough and shortness of breath.patient was started back on IV Zosyn per ID. White blood cell is trending down 20.0. At this time patient denies chest pain or shortness of breath. Patient denies nausea vomiting or diarrhea. Patient denies any urinary burning or frequency Objective - Vital Signs Vital signs: Vital Signs Temp 98.2 F 11/30/23 07:35 Pulse 94 11/30/23 07:35 Resp 16 11/30/23 07:35 BP 136/81 11/30/23 07:35 Pulse Ox 94 L 11/30/23 07:35 FiO2 Intake & Output 11/29/23 11/30/23 11/30/23 18:59 06:59 18:59 Intake Total 100 480 480 Output Total 600 Balance 100 -120 480 Intake: IV 100 Oral 480 480 Output: Urine 600 Other: Voiding Method Urinal Urinal Urinal # Bowel Movements 1 - Exam In general patient is alert and oriented x 3 in no distress HEENT head normocephalic and atraumatic Neck is supple no JVD no goiter no lymphadenopathy no carotid bruit Chest examination is clear to auscultation no crackles no wheezing Cardiac exam reveals regular heart sounds S1 and S2 no gallops no murmurs Abdomen is soft nontender no organomegaly with normal bowel sounds Extremity exam reveals no edema no cyanosis or clubbing Neurological examination reveals no gross focal deficits - Labs CBC & Chem 7: 11/30/23 03:49 11/29/23 05:11 Labs: Abnormal Lab Results - Last 24 Hours (Table) 11/29/23 11/29/23 11/29/23 Range/Units 05:11 05:11 05:11 WBC (3.8-10.6) k/uL RBC (4.30-5.90) m/uL Hgb (13.0-17.5) gm/dL Hct (39.0-53.0) % MCH (25.0-35.0) pg MCHC (31.0-37.0) g/dL RDW (11.5-15.5) % Plt Count (150-450) k/uL Neutrophils # (1.3-7.7) k/uL Neutrophils # (Manual) 14.72 H (1.80-7.70) X 10*3/uL Lymphocytes # (1.0-4.8) k/uL Lymphocytes # (Manual) 13.58 H (0.90-5.00) X 10*3/uL Monocytes # (Manual) 0 L (0.20-1.00) X 10*3/uL Eosinophils # (Manual) 0 L (0.04-0.35) X 10*3/uL Retic Count 2.70 H (0.10-1.80) % Creatinine 0.5 L (0.6-1.5) mg/dL Iron (65-175) UG/DL % Saturation (15.00-50.00) Transferrin (204.0-354.0) mg/dL Total Bilirubin <0.2 L (0.3-1.2) mg/dL ALT 5 L (10-49) U/L Total Protein 5.8 L (6.2-8.2) g/dL Albumin 3.1 L (3.8-4.9) g/dL Albumin/Globulin Ratio 1.15 L (1.60-3.17) Ratio 11/29/23 11/30/23 Range/Units 05:11 03:49 WBC 20.0 H (3.8-10.6) k/uL RBC 3.90 L (4.30-5.90) m/uL Hgb 9.6 L (13.0-17.5) gm/dL Hct 32.0 L (39.0-53.0) % MCH 24.7 L (25.0-35.0) pg MCHC 30.0 L (31.0-37.0) g/dL RDW 16.6 H (11.5-15.5) % Plt Count 619 H (150-450) k/uL Neutrophils # 9.3 H (1.3-7.7) k/uL Neutrophils # (Manual) (1.80-7.70) X 10*3/uL Lymphocytes # 9.3 H (1.0-4.8) k/uL Lymphocytes # (Manual) (0.90-5.00) X 10*3/uL Monocytes # (Manual) (0.20-1.00) X 10*3/uL Eosinophils # (Manual) (0.04-0.35) X 10*3/uL Retic Count (0.10-1.80) % Creatinine (0.6-1.5) mg/dL Iron 21 L (65-175) UG/DL % Saturation 9.21 L (15.00-50.00) Transferrin 163.0 L (204.0-354.0) mg/dL Total Bilirubin (0.3-1.2) mg/dL ALT (10-49) U/L Total Protein (6.2-8.2) g/dL Albumin (3.8-4.9) g/dL Albumin/Globulin Ratio (1.60-3.17) Ratio Assessment and Plan Plan: Right lower lobe and right upper lobe consolidation opacities on recent CT scan done as outpatient, patient is admitted to medical floor pulmonary consultation was requested Underlying history of chronic lymphocytic leukemia Underlying history of Parkinson disease Underlying history of bronchiectasis Underlying history of chronic dysphagia Underlying history of right lower lobe pulmonary nodule At this time patient is admitted to medical floor Home medications reviewed and reordered Pulmonary consultation was requested Infectious disease and oncology services following Status post bronchoscopy on 11/29/2023 Echo ordered Will follow closely
--- NOTE | 2023-11-30 15:01 | P.PN ---
Subjective Progress Note Date: 11/30/23 Principal diagnosis: Reason for follow-up is leukocytosis right upper lobe consolidation Patient is a 68-year-old male with a past medical history significant for parkinsonism osteoarthritis CLL never smoker presenting to the hospital for evaluation of increasing shortness of breath the patient did have a chest x-ray suggestive of right upper lobe consolidation did have elevated white count prompted this consultation. On today's evaluation that is 11/30/2023, Patient is afebrile patient is currently on room air and mention breathing more comfortably he denies having any chest pain or worsening cough no nausea vomiting abdominal pain or diarrhea. Patient white count is down to 20,000, creatinine 0.5 bronchial wash cultures are currently pending Objective - Vital Signs Vital signs: Vital Signs Temp 98.2 F 11/30/23 07:35 Pulse 94 11/30/23 07:35 Resp 16 11/30/23 07:35 BP 136/81 11/30/23 07:35 Pulse Ox 94 L 11/30/23 07:35 FiO2 Intake & Output 11/29/23 11/30/23 11/30/23 18:59 06:59 18:59 Intake Total 100 480 480 Output Total 600 Balance 100 -120 480 Intake: IV 100 Oral 480 480 Output: Urine 600 Other: Voiding Method Urinal Urinal Urinal # Bowel Movements 1 - Exam GENERAL DESCRIPTION: An elderly male lying in bed in no distress RESPIRATORY SYSTEM: Unlabored breathing , decreased breath sounds at bases HEART: S1 S2 regular rate and rhythm , ABDOMEN: Soft , no tenderness EXTREMITIES: No edema feet - Labs CBC & Chem 7: 11/30/23 03:49 11/29/23 05:11 Labs: Abnormal Lab Results - Last 24 Hours (Table) 11/29/23 11/29/23 11/30/23 Range/Units 05:11 05:11 03:49 WBC 20.0 H (3.8-10.6) k/uL RBC 3.90 L (4.30-5.90) m/uL Hgb 9.6 L (13.0-17.5) gm/dL Hct 32.0 L (39.0-53.0) % MCH 24.7 L (25.0-35.0) pg MCHC 30.0 L (31.0-37.0) g/dL RDW 16.6 H (11.5-15.5) % Plt Count 619 H (150-450) k/uL Neutrophils # 9.3 H (1.3-7.7) k/uL Lymphocytes # 9.3 H (1.0-4.8) k/uL Retic Count 2.70 H (0.10-1.80) % Iron 21 L (65-175) UG/DL % Saturation 9.21 L (15.00-50.00) Transferrin 163.0 L (204.0-354.0) mg/dL Assessment and Plan (1) Leukocytosis Current Visit: Yes Status: Acute Code(s): D72.829 - ELEVATED WHITE BLOOD CELL COUNT, UNSPECIFIED SNOMED Code(s): 137410975 (2) Pneumonia Current Visit: Yes Status: Acute Priority: High Code(s): J18.9 - PNEU MONIA, UNSPECIFIED ORGANISM SNOMED Code(s): 997030611 Plan: 1patient with elevated white count in this patient presenting to the hospital with increasing shortness of breath patient did have a CT in the outpatient setting suggestive of right upper lobe mass chest x-ray showing right upper lobe mass/consolidation patient not running any fever did have a normal procalcitonin and does not look toxic elevated white count more likely due to his underlying CLL rather than infectious etiology 2-patient did have a repeat procalcitonin and is 0.09 chest x-ray repeated today shows consolation to be about the same, patient is status post bronchoscopy and wash with the postop diagnosis of pneumonia did not mention any mass 3-patient white count is down to 20,000 continue with Zosyn till the bronchoscopy wash cultures are finalized Dictation was produced using [employer] dictation software. please excuse any grammatical, word or spelling errors. Time with Patient: Less than 30
--- NOTE | 2023-11-30 15:15 | P.PN ---
Subjective Progress Note Date: 11/30/23 Patient is a 68-year-old male with past medical history significant for lung nodules, bronchiectasis, Parkinson's disease, CLL. Patient follows in the pulmonary office with Dr. Morocho. Had a previous right lower lobe peripheral based nodule. PET scan done in 2019 concerning for inflammatory process. This was followed outpatient. Patient had a more recent outpatient CT of the chest demonstrating right lower and upper lobe lung consolidation/mass like opacities. He was directed to the emergency department by his oncologist, Dr. Hebert. It appears the patient has a 3.2 cm mass or focal parenchymal consolidation with ill-defined margins in the right lower lobe. The center of the mass is hypodense possibly indicating necrosis. There is a large area of consolidated opacity with air bronchograms and areas of decreased density in the right upper lobe. Findings are suspicious for neoplasm or inflammatory process with early abscess development. Incidental hiatal hernia noted. CBC: WBC count 28.8, hemoglobin 10.9, hematocrit 33.8, platelets 822. CMP: Sodium 135, potassium 4.8, chloride 96, serum bicarb 32, BUN 19, creatinine 0.58, glucose 101. Lactic 1.1. Normal saline infusing at 100 mL/h LFTs unremarkable. Troponin less than 0.012. NT proBNP 376. Negative for influenza, RSV, COVID. Currently, the patient is covered on empiric antibiotics. Procalcitonin level pending. Afebrile. Currently resting comfortably on room air. SpO2 94%. Nontoxic appearance. Over the last 2 weeks the patient has had a congested cough with green sputum production. Sputum is foul tasting. No hemoptysis. There is associated right sided thoracic level back pain. He denies any fevers or chills. He has had an approximately 18 pound weight loss over the last couple months. He has been very fatigued over the last couple weeks. No smoking history. Patient does have Parkinson's disease, and normally ambulates with walker. Occasionally has issues swallowing. Food gets stuck in his throat. Pacheco quently coughs after eating. No dental infections. Denies drug or alcohol use. Progress note dated November 23, 2023. The patient is seen today in room 529. The patient feels better. Less short of breath. He is coughing, but not producing any phlegm. Cultures are thus far negative. Procalcitonin level was 0.16. He continues on azithromycin and Zosyn. Current labs include a white count of 24.3, hemoglobin 9.5, hematocrit 30.6, and a platelet count of 706,000. Cultures are thus far negative. Progress note dated November 24, 2023. The patient is seen this morning in room 529. The patient is on room air. Saturations are 95%. He is getting saline at 100 cc an hour. He continues on Zosyn. The patient had an uneventful night. He states that he is feeling better. He is coughing less, and producing less phlegm. No chest pain or chest discomfort. No fever or chills. No new labs today. Progress note dated November 25, 2023. 68-year-old male seen today in room 529. He is currently on room air. He is on Zosyn. He feels much better. Repeat chest x-ray will be ordered. His is in the room with him, and states that the patient is doing better. We are currently treating him for possible infection, involving the right upper lobe. Current new laboratory includes a sodium 136, potassium 4.5, chloride 99, CO2 27, BUN 9, creatinine 0.5. Sputum and blood cultures are currently negative or pending. Repeat chest x-ray continues to show a consolidation/mass, right upper lobe. 11/26/2023, patient is being seen for a follow-up. This is a 68-year-old male patient with known history of CLL and the patient is presenting with an extensive right lung pneumonia and the patient has developed a masslike consolidation involving the right lung. The white cell count is elevated and essentially consistent with lymphocytosis and the patient's lymphocytic count is in the order of 65% with a white cell count of 24 consistent with CLL. The electrolytes are all within normal limits. The patient is currently on room air oxygen. CRP was elevated at 7.2. Procalcitonin was at 0.09. The patient remains on IV Zosyn. Clinically however, the patient is improving. He is on room air oxygen with a pulse ox of 97%. Repeat chest x-ray was done on 11/25/2023 showed large consolidation involving the right lung probably somewhat improved and repeat chest x-ray will be obtained tomorrow. Possibility of malignancy cannot be completely excluded although it is felt to be less likely. On 11/27/2023, patient is being seen for a follow-up. The patient remains on room air oxygen. Denies having any significant respiratory distress. Repeat chest x-ray was done and the patient has a stable large area of masslike consolidation in the right upper lobe. The patient remains on IV Zosyn. As mentioned earlier, the procalcitonin level has been low. The electrolytes are all within normal limits. BUN is at 12 with a creatinine of 0.5. The patient has chronic lymphocytosis with a white cell count of 20.4 and a hemoglobin of 8.5. No altered mentation. ID is on the case. He denies having any chest pain. No significant sputum production. No nausea vomiting or diarrhea or abdominal pain. No altered mentation.. On today's evaluation of 11/28/2023, the patient is being seen for a follow-up. Clinically unchanged. Nevertheless, the chest x-ray still showing advanced consolidation in the right upper lobe. I had a nice discussion with the patient. We decided to do a bronchoscopy endobronchial lavage of the right upper lobe tomorrow. Meanwhile, the white cell count is gradually improved down to 18 and the patient has a hemoglobin of 9.4. The patient has significant lymphocytosis which is in the order of 62%. BUN is at 10 with a creatinine of 0.6 and a sodium level of 137. The patient remains on IV Zosyn. He remains on room air oxygen. He has significant kyphoscoliosis of the thoracolumbar spine. Minimal sputum production. The sputum cultures were negative. Blood pressure has been also negative. 11/29/2023, the patient is essentially unchanged. The patient remains on IV Zosyn. The chest x-ray showed a persistent right upper lobe consolidation and for that reason a bronchoscopy endobronchial lavage of the right upper lobe is scheduled to be done today. The patient remains on room air oxygen. He has a congested cough. The white cell count of 28 essentially lymphocytosis with a hemoglobin 9.3. Sodium is at 136, potassium of 4.4, bicarbonate 27 with a BUN of 9 and a creatinine of 0.5. The serum iron is at 21. Procalcitonin level is at 0.09. Patient is also being evaluated by infectious disease. Patient is breathing comfortably in bed. Patient on today's evaluation disc of 11/30/2023, the patient is feeling better. No new complaints. Bronchoscopy and bronchial lavage of the right upper lobe was done. Results are still pending for now. Meanwhile, the patient is on room air oxygen with a pulse ox of 97%. The patient remains on IV Zosyn. Repeat chest x-ray be obtained for tomorrow. Tolerating his diet. No other new complaints otherwise for now. Objective - Vital Signs Vital signs: Vital Signs Temp 97.6 F 11/30/23 13:04 Pulse 90 11/30/23 13:04 Resp 16 11/30/23 13:04 BP 130/77 11/30/23 13:04 Pulse Ox 97 11/30/23 13:04 FiO2 Intake & Output 11/29/23 11/30/23 11/30/23 18:59 06:59 18:59 Intake Total 100 480 957 Output Total 600 Balance 100 -120 957 Intake: IV 100 Oral 480 957 Output: Urine 600 Other: Voiding Method Urinal Urinal Urinal # Bowel Movements 1 - Exam No acute distress, oriented 3. No supplemental oxygen. Room air oxygen HEENT examination is grossly unremarkable. Mucous membranes are moist. No oral lesions. Neck supple. Full range of motion. No adenopathy thyromegaly or neck vein distention. Cardiovascular examination reveals regular rhythm rate. S1-S2 normal. No S3 or S4. No discernible murmur noted. Lungs reveal scattered mild rhonchi. No wheezes or crackles. Breath sounds equal. Abdomen soft bowel sounds are heard. No masses or tenderness. Extremities are intact. No cyanosis clubbing or edema. Skin is without rash or lesion. Neurologic examination is brief but nonfocal. - Labs CBC & Chem 7: 11/30/23 03:49 11/29/23 05:11 Labs: Abnormal Lab Results - Last 24 Hours (Table) 11/29/23 11/29/23 11/30/23 Range/Units 05:11 05:11 03:49 WBC 20.0 H (3.8-10.6) k/uL RBC 3.90 L (4.30-5.90) m/uL Hgb 9.6 L (13.0-17.5) gm/dL Hct 32.0 L (39.0-53.0) % MCH 24.7 L (25.0-35.0) pg MCHC 30.0 L (31.0-37.0) g/dL RDW 16.6 H (11.5-15.5) % Plt Count 619 H (150-450) k/uL Neutrophils # 9.3 H (1.3-7.7) k/uL Lymphocytes # 9.3 H (1.0-4.8) k/uL Retic Count 2.70 H (0.10-1.80) % Iron 21 L (65-175) UG/DL % Saturation 9.21 L (15.00-50.00) Transferrin 163.0 L (204.0-354.0) mg/dL Assessment and Plan Plan: Right upper lobe lung consolidation/masslike opacities, differential includes infectious process with early abscess or malignancy. Repeat chest x-ray from today shows no significant change in the right upper lobe consolidation. The ramya monterroso does have underlying immunodeficiency related to CLL and the patient's CBC is showing chronic lymphocytosis. He is currently afebrile. He is currently on room air oxygen. Chronic leukocytosis, secondary to CLL. The patient has lymphocytosis. History of CLL. Hiatal hernia. History of a Parkinson's disease. Chronic dysphagia. History of acquired bronchiectasis. History of right lower lobe pleural-based pulmonary nodule. Severe thoracolumbar kyphoscoliosis Plan: Clinically stable Bronchoscopy endobronchial lavage of the right upper lobe was done and the results are still pending for now Repeat chest x-ray in the morning The patient continues on Zosyn. Clinically he is feeling better.
[2023-11-30 21:21] LABS: Appearance,BF Cloudy (Clear); RBC, Body Fluid 4000 /UL (0-2000)
--- NOTE | 2023-11-30 22:41 | P.PN ---
Subjective Progress Note Date: 11/30/23 No acute events. Reporting improvement in breathing and weakness. Pt afebrile, SPO2 94% on room air. S/p bronch, cytology pending. Continues on IV abx Objective - Vital Signs Vital signs: Vital Signs Temp 97.6 F 11/30/23 13:04 Pulse 90 11/30/23 13:04 Resp 16 11/30/23 13:04 BP 130/77 11/30/23 13:04 Pulse Ox 97 11/30/23 13:04 FiO2 Intake & Output 11/29/23 11/30/23 11/30/23 18:59 06:59 18:59 Intake Total 100 480 480 Output Total 600 Balance 100 -120 480 Intake: IV 100 Oral 480 480 Output: Urine 600 Other: Voiding Method Urinal Urinal Urinal # Bowel Movements 1 - Constitutional General appearance: Present: no acute distress - EENT Eyes: Present: anicteric sclerae, EOMI ENT: Present: hearing grossly normal - Respiratory Details: breathing is even and unlabored - Cardiovascular Details: skin warm and dry - Integumentary Integumentary: Absent: cyanotic - Musculoskeletal Musculoskeletal: Present: generalized weakness - Psychiatric Psychiatric: Present: A&O x's 3 - Labs CBC & Chem 7: 11/30/23 03:49 11/29/23 05:11 Labs: Abnormal Lab Results - Last 24 Hours (Table) 11/29/23 11/29/23 11/30/23 Range/Units 05:11 05:11 03:49 WBC 20.0 H (3.8-10.6) k/uL RBC 3.90 L (4.30-5.90) m/uL Hgb 9.6 L (13.0-17.5) gm/dL Hct 32.0 L (39.0-53.0) % MCH 24.7 L (25.0-35.0) pg MCHC 30.0 L (31.0-37.0) g/dL RDW 16.6 H (11.5-15.5) % Plt Count 619 H (150-450) k/uL Neutrophils # 9.3 H (1.3-7.7) k/uL Lymphocytes # 9.3 H (1.0-4.8) k/uL Retic Count 2.70 H (0.10-1.80) % Iron 21 L (65-175) UG/DL % Saturation 9.21 L (15.00-50.00) Transferrin 163.0 L (204.0-354.0) mg/dL Assessment and Plan (1) CLL (chronic lymphocytic leukemia) Current Visit: Yes Status: Acute Priority: High Code(s): C91.10 - CHRONIC LYMPHOCYTIC LEUK OF B-CELL TYPE NOT ACHIEVE REMIS SNOMED Code(s): 56751064 (2) Pneumonia Current Visit: Yes Status: Acute Priority: High Code(s): J18.9 - PNEUMONIA, UNSPECIFIED ORGANISM SNOMED Code(s): 904554011 Plan: CLL -Hx of, has been on observation -Elevation in WBC while acutely ill is not unusual, ALC and ANC elevated. White counts improved today -Cont to monitor CBC for now Rt lung consolidation -Case discussed briefly with Pulm -S/p bronchoscopy. Pulmonology report reviewed, findings consistent with consolidation/pneumonia, no suspicious lesions noted. Bronchial washings/cytology pending -Continues on IV abx Progressive anemia, microcytic, hypochromic -Progressive since admit -Anemia work up ordered. Labs consistent with anemia of inflammation -Continue to monitor CBC. Transfuse for Hgb <7 or if symptomatic attests: I have seen and examined patient, performed H&P, developed impression and plan of care. Discussed with dictator. Agree with documentation, dictated as a scribe
--- NOTE | 2023-12-01 06:48 | XR ---
EXAMINATION TYPE: XR chest 1V DATE OF EXAM: 12/01/2023 COMPARISON: 11/28/2023 HISTORY: Pneumonia follow-up TECHNIQUE: Single frontal view of the chest is obtained. FINDINGS: There is been no change in the right upper lobe consolidation consistent with pneumonia or mass. The left lung remains clear. There is no pleural effusion or pneumothorax. The heart and pulmonary vasculature are normal. The osseous structures are intact IMPRESSION: No change in the acute cardiopulmonary process or mass involving the right upper lobe of the lung. [facility], , 12/01/2023 6:46 AM
[2023-12-01 09:55] LABS: HGB 9.5 g/dL (13.0-17.0); MCH 23.9 pg (27.0-32.0); MCHC 29.7 g/dL (32.0-37.0); MCV 80.4 FL (80.0-97.0); Mean Platelet Volume 9.8 FL (9.5-12.2); NRBC Per 100 WBC 0 X 10*3/uL (0.00-0.01); Platelet Count 673 X 10*3/uL (140-440); RBC 3.98 X 10*6/uL (4.40-5.60); WBC 23.59 X 10*3/uL (4.50-10.00)
[2023-12-01 11:17] LABS: ALT <5 U/L (10-49); AST 26 U/L (14-35); Albumin 3.2 g/dL (3.8-4.9); Albumin/Globulin Ratio 1.14 Ratio (1.60-3.17); Alkaline Phosphatase 117 U/L (41-126); BUN/Creat Ratio 16.83 Ratio (12.00-20.00); Blood Urea Nitrogen 10.1 mg/dL (9.0-27.0); Calcium 9.3 mg/dL (8.7-10.3); Carbon Dioxide 28.7 mmol/L (21.6-31.8); Chloride 98 mmol/L (96-109); Globulin 2.8 g/dL (1.6-3.3); Glucose 75 mg/dL (70-110); Potassium 4.9 mmol/L (3.5-5.5); Sodium 137 mmol/L (135-145); Total Bilirubin 0.2 mg/dL (0.3-1.2)
[2023-12-01] MEDS: SODIUM FERRIC GLUCONAT-SUCROSE 125 MG in SODIUM CHLORIDE 0.9% 100 ML IVPB ONE (12:51)
[2023-12-01 13:02] LABS: Basophils # (M) 0 X 10*3/uL (0.00-0.10); Eosinophils # (M) 0.24 X 10*3/uL (0.04-0.35); Lymphocytes # (M) 14.63 X 10*3/uL (0.90-5.00); Monocytes # (M) 0 X 10*3/uL (0.20-1.00); Neutrophils # (M) 8.73 X 10*3/uL (1.80-7.70); Neutrophils % (M) 37 %
--- NOTE | 2023-12-01 13:34 | P.PN ---
Subjective Progress Note Date: 12/01/23 Jessica Pathak, is a 68-year-old male who presented to [facility] emergency room with a chief complaint of worsening shortness of breath, and a new 3.2 cm mass or focal consolidation with ill-defined margins in the right lower lobe on recent CT scan of the chest. Patient has a known history of chronic lymphocytic leukemia followed by oncology he also has a known history of Parkinson disease and history of bronchiectasis, he had a previous history of right lower lobe pleural-based pulmonary nodule followed by pulmonary as outpatient. He was evaluated in the emergency room vital examination on presentation revealed a temperature of 98.6 pulse 98 respirations 16 blood pressure 105/67 pulse ox 93% on room air Laboratory data revealed a white blood count of 28.8 hemoglobin 10.9 platelet count 822 BUN 19 creatinine 0.59 Testing in the emergency room revealed Patient was admitted to medical floor for further evaluation and treatment On 11/23/2023 patient is alert and oriented x 3. Patient reports improvement with shortness of breath but does report he does get short of breath with activity. Patient margaux on antibiotics azithromycin and Zosyn. Possible plans for bronchoscopy today per pulmonary. At this time patient denies chest pain or shortness of breath. Patient denies nausea vomiting or diarrhea. Patient denies any urinary burning or frequency. Current vital signs temp 97.7, heart rate 84, respiratory rate 16, blood pressure 117/74 with a pulse ox of 97% on room air. On 11/24/2023 patient was seen and examined on the medical floor he is alert and oriented x 3 in no apparent distress there is no fever or chills no headache or dizziness he is still having some cough and shortness of breath with activity otherwise he denies any complaints there is no fever or chills no headache or dizziness no chest pain no nausea or vomiting no abdominal pain no diarrhea and no urinary symptoms. At this time we will continue with IV antibiotics, decrease IV fluid, will continue to follow closely. On 11/25/2023 patient is alert and oriented x 3. Patient reports improvement with cough and shortness of breath. Patient remains on IV Zosyn. White blood cell remains elevated despite antibiotic treatment will consult infectious disease services. Family at bedside family expresses concerns about wanting bronchoscopy completed during hospital stay. Will await further recommendations from pulmonary services. Repeat chest x-ray has been ordered this a.m. All questions answered. Patient denies chest pain or shortness of breath. Patient denies nausea vomiting or diarrhea. Patient denies any urinary burning or frequency. On 11/26/2023 patient was seen and examined on the medical floor he is alert and oriented x 3 in no apparent distress he is complaining of cough and complaining of dizziness today otherwise he denies any complaints there is no fever or c hills no headache no chest pain no shortness of breath no nausea or vomiting no abdominal pain no diarrhea and no urinary symptoms. At this time will check echocardiogram in regard to dizziness, awaiting further recommendation from infectious disease and pulmonary, white blood count remains elevated at 24,000 On 11/27/2023 patient is alert and oriented x 3. 2D echo has been ordered. Patient remains on IV Zosyn. Repeat chest x-ray has been ordered awaiting further recommendations from pulmonary services. Infectious disease services following for leukocytosis. At this time patient denies chest pain or shortness of breath. Patient denies nausea vomiting or diarrhea. Patient denies any urinary burning or frequency On 11/28/2023 patient was seen and examined on the medical floor he is alert and oriented x 3 in no apparent distress he is complaining of cough and complaining of dizziness today otherwise he denies any complaints there is no fever or chills no headache no chest pain no shortness of breath no nausea or vomiting no abdominal pain no diarrhea and no urinary symptoms. Patient is being evaluated by pulmonary for possible bronchoscopy. On 11/29/2023 patient was seen and examined on the medical floor he is alert and oriented x 3 in no apparent distress he is complaining of cough and complaining of dizziness today otherwise he denies any complaints there is no fever or chills no headache no chest pain no shortness of breath no nausea or vomiting no abdominal pain no diarrhea and no urinary symptoms. plan is for bronchoscopy per pulmonary. on 11/30/2023 patient's alert and oriented 3. Patient underwent bronchoscopy yesterday per pulmonary services. Patient reports improvement with cough and shortness of breath.patient was started back on IV Zosyn per ID. White blood cell is trending down 20.0. At this time patient denies chest pain or shortness of breath. Patient denies nausea vomiting or diarrhea. Patient denies any urinary burning or frequency. On 12/01/2023 patient was seen and examined on the medical floor he is alert and oriented x 3 in no apparent distress, he is reporting improvement in his shortness of breath, there is no fever or chills no headache or dizziness no chest pain he is still having cough with yellow-green sputum production, no nausea or vomiting no abdominal pain no diarrhea no blood in the stools no burning with urination no frequency or urgency and no hematuria. White blood count remains elevated at 23,000, culture results are still pending, continue with IV Zosyn at this time, patient is followed by pulmonary critical care and infectious disease. Objective - Vital Signs Vital signs: Vital Signs Temp 97.8 F 12/01/23 07:34 Pulse 82 12/01/23 07:34 Resp 16 12/01/23 07:34 BP 122/77 12/01/23 07:34 Pulse Ox 96 12/01/23 07:34 FiO2 Intake & Output 11/30/23 12/01/23 12/01/23 18:59 06:59 18:59 Intake Total 2277 210 Output Total 800 Balance 2277 -590 Intake: Intake, IV Titration 210 Amount Piperacillin-Tazobactam 3 100 .375 gm In Sodium Chloride 0.9% 100 ml @ 25 mls/hr IVPB Q8HR FELIPE Rx# :[id number] Sodium Chloride 0.9% 1, 110 000 ml @ 20 mls/hr IV . Q24H FELIPE Rx#:[id number] Oral 2277 Output: Urine 800 Other: Voiding Method Urinal Urinal # Voids 4 # Bowel Movements 1 - Exam In general patient is alert and oriented x 3 in no distress HEENT head normocephalic and atraumatic Neck is supple no JVD no goiter no lymphadenopathy no carotid bruit Chest examination is clear to auscultation no crackles no wheezing Cardiac exam reveals regular heart sounds S1 and S2 no gallops no murmurs Abdomen is soft nontender no organomegaly with normal bowel sounds Extremity exam reveals no edema no cyanosis or clubbing Neurological examination reveals no gross focal deficits - Labs CBC & Chem 7: 12/01/23 05:48 12/01/23 05:48 Labs: Abnormal Lab Results - Last 24 Hours (Table) 11/29/23 12/01/23 Range/Units 16:10 05:48 WBC 23.59 H (4.50-10.00) X 10*3/uL RBC 3.98 L (4.40-5.60) X 10*6/uL Hgb 9.5 L (13.0-17.0) g/dL Hct 32.0 L (39.6-50.0) % MCH 23.9 L (27.0-32.0) pg MCHC 29.7 L (32.0-37.0) g/dL RDW 18.0 H (11.5-14.5) % Plt Count 673 H (140-440) X 10*3/uL Fluid Appearance Cloudy A (Clear) Assessment and Plan Plan: Right lower lobe and right upper lobe consolidation opacities on recent CT scan done as outpatient, patient is admitted to medical floor pulmonary consultation was requested Underlying history of chronic lymphocytic leukemia Underlying history of Parkinson disease Underlying history of bronchiectasis Underlying history of chronic dysphagia Underlying history of right lower lobe pulmonary nodule At this time patient is admitted to medical floor Home medications reviewed and reordered Pulmonary consultation was requested Infectious disease and oncology services following Status post bronchoscopy on 11/29/2023 Echo ordered Will follow closely
[2023-12-01] MEDS ORDERED: CARBIDOPA-LEVODOPA 25-100 MG 1 EACH TAB PO SCH (14:00)
--- NOTE | 2023-12-01 15:17 | P.PN ---
Subjective Progress Note Date: 12/01/23 Patient is a 68-year-old male with past medical history significant for lung nodules, bronchiectasis, Parkinson's disease, CLL. Patient follows in the pulmonary office with Dr. Morocho. Had a previous right lower lobe peripheral based nodule. PET scan done in 2019 concerning for inflammatory process. This was followed outpatient. Patient had a more recent outpatient CT of the chest demonstrating right lower and upper lobe lung consolidation/mass like opacities. He was directed to the emergency department by his oncologist, Dr. Hebert. It appears the patient has a 3.2 cm mass or focal parenchymal consolidation with ill-defined margins in the right lower lobe. The center of the mass is hypodense possibly indicating necrosis. There is a large area of consolidated opacity with air bronchograms and areas of decreased density in the right upper lobe. Findings are suspicious for neoplasm or inflammatory process with early abscess development. Incidental hiatal hernia noted. CBC: WBC count 28.8, hemoglobin 10.9, hematocrit 33.8, platelets 822. CMP: Sodium 135, potassium 4.8, chloride 96, serum bicarb 32, BUN 19, creatinine 0.58, glucose 101. Lactic 1.1. Normal saline infusing at 100 mL/h LFTs unremarkable. Troponin less than 0.012. NT proBNP 376. Negative for influenza, RSV, COVID. Currently, the patient is covered on empiric antibiotics. Procalcitonin level pending. Afebrile. Currently resting comfortably on room air. SpO2 94%. Nontoxic appearance. Over the last 2 weeks the patient has had a congested cough with green sputum production. Sputum is foul tasting. No hemoptysis. There is associated right sided thoracic level back pain. He denies any fevers or chills. He has had an approximately 18 pound weight loss over the last couple months. He has been very fatigued over the last couple weeks. No smoking history. Patient does have Parkinson's disease, and normally ambulates with walker. Occasionally has issues swallowing. Food gets stuck in his throat. Pacheco quently coughs after eating. No dental infections. Denies drug or alcohol use. Progress note dated November 23, 2023. The patient is seen today in room 529. The patient feels better. Less short of breath. He is coughing, but not producing any phlegm. Cultures are thus far negative. Procalcitonin level was 0.16. He continues on azithromycin and Zosyn. Current labs include a white count of 24.3, hemoglobin 9.5, hematocrit 30.6, and a platelet count of 706,000. Cultures are thus far negative. Progress note dated November 24, 2023. The patient is seen this morning in room 529. The patient is on room air. Saturations are 95%. He is getting saline at 100 cc an hour. He continues on Zosyn. The patient had an uneventful night. He states that he is feeling better. He is coughing less, and producing less phlegm. No chest pain or chest discomfort. No fever or chills. No new labs today. Progress note dated November 25, 2023. 68-year-old male seen today in room 529. He is currently on room air. He is on Zosyn. He feels much better. Repeat chest x-ray will be ordered. His is in the room with him, and states that the patient is doing better. We are currently treating him for possible infection, involving the right upper lobe. Current new laboratory includes a sodium 136, potassium 4.5, chloride 99, CO2 27, BUN 9, creatinine 0.5. Sputum and blood cultures are currently negative or pending. Repeat chest x-ray continues to show a consolidation/mass, right upper lobe. 11/26/2023, patient is being seen for a follow-up. This is a 68-year-old male patient with known history of CLL and the patient is presenting with an extensive right lung pneumonia and the patient has developed a masslike consolidation involving the right lung. The white cell count is elevated and essentially consistent with lymphocytosis and the patient's lymphocytic count is in the order of 65% with a white cell count of 24 consistent with CLL. The electrolytes are all within normal limits. The patient is currently on room air oxygen. CRP was elevated at 7.2. Procalcitonin was at 0.09. The patient remains on IV Zosyn. Clinically however, the patient is improving. He is on room air oxygen with a pulse ox of 97%. Repeat chest x-ray was done on 11/25/2023 showed large consolidation involving the right lung probably somewhat improved and repeat chest x-ray will be obtained tomorrow. Possibility of malignancy cannot be completely excluded although it is felt to be less likely. On 11/27/2023, patient is being seen for a follow-up. The patient remains on room air oxygen. Denies having any significant respiratory distress. Repeat chest x-ray was done and the patient has a stable large area of masslike consolidation in the right upper lobe. The patient remains on IV Zosyn. As mentioned earlier, the procalcitonin level has been low. The electrolytes are all within normal limits. BUN is at 12 with a creatinine of 0.5. The patient has chronic lymphocytosis with a white cell count of 20.4 and a hemoglobin of 8.5. No altered mentation. ID is on the case. He denies having any chest pain. No significant sputum production. No nausea vomiting or diarrhea or abdominal pain. No altered mentation.. On today's evaluation of 11/28/2023, the patient is being seen for a follow-up. Clinically unchanged. Nevertheless, the chest x-ray still showing advanced consolidation in the right upper lobe. I had a nice discussion with the patient. We decided to do a bronchoscopy endobronchial lavage of the right upper lobe tomorrow. Meanwhile, the white cell count is gradually improved down to 18 and the patient has a hemoglobin of 9.4. The patient has significant lymphocytosis which is in the order of 62%. BUN is at 10 with a creatinine of 0.6 and a sodium level of 137. The patient remains on IV Zosyn. He remains on room air oxygen. He has significant kyphoscoliosis of the thoracolumbar spine. Minimal sputum production. The sputum cultures were negative. Blood pressure has been also negative. 11/29/2023, the patient is essentially unchanged. The patient remains on IV Zosyn. The chest x-ray showed a persistent right upper lobe consolidation and for that reason a bronchoscopy endobronchial lavage of the right upper lobe is scheduled to be done today. The patient remains on room air oxygen. He has a congested cough. The white cell count of 28 essentially lymphocytosis with a hemoglobin 9.3. Sodium is at 136, potassium of 4.4, bicarbonate 27 with a BUN of 9 and a creatinine of 0.5. The serum iron is at 21. Procalcitonin level is at 0.09. Patient is also being evaluated by infectious disease. Patient is breathing comfortably in bed. Patient on today's evaluation disc of 11/30/2023, the patient is feeling better. No new complaints. Bronchoscopy and bronchial lavage of the right upper lobe was done. Results are still pending for now. Meanwhile, the patient is on room air oxygen with a pulse ox of 97%. The patient remains on IV Zosyn. Repeat chest x-ray be obtained for tomorrow. Tolerating his diet. No other new complaints otherwise for now. On 12/01/2023, the patient's condition is stable. Repeat chest x-ray was done that showed a stable right upper lobe consolidation and bronchoscopy and bronchial lavage was done and the culture results are still pending. Patient remains on room air oxygen. Pulse ox 95%. The patient is afebrile. The white cell count is 23 with hemoglobin 9.5 and a platelet count of 673. Electrolytes are all within normal limits. Awaiting the results of the bronchioloalveolar lavage. Objective - Vital Signs Vital signs: Vital Signs Temp 97.4 F L 12/01/23 13:14 Pulse 91 12/01/23 13:14 Resp 16 12/01/23 13:14 BP 104/67 12/01/23 13:14 Pulse Ox 95 12/01/23 13:14 FiO2 Intake & Output 11/30/23 12/01/23 12/01/23 18:59 06:59 18:59 Intake Total 2277 210 Output Total 800 Balance 2277 -590 Intake: Intake, IV Titration 210 Amount Piperacillin-Tazobactam 3 100 .375 gm In Sodium Chloride 0.9% 100 ml @ 25 mls/hr IVPB Q8HR [facility] Rx# :[id number] Sodium Chloride 0.9% 1, 110 000 ml @ 20 mls/hr IV . Q24H [facility] Rx#:[id number] Oral 2277 Output: Urine 800 Other: Voiding Method Urinal Urinal Urinal # Voids 4 3 # Bowel Movements 1 - Exam No acute distress, oriented 3. No supplemental oxygen. Room air oxygen HEENT examination is grossly unremarkable. Mucous membranes are moist. No oral lesions. Neck supple. Full range of motion. No adenopathy thyromegaly or neck vein distention. Cardiovascular examination reveals regular rhythm rate. S1-S2 normal. No S3 or S4. No discernible murmur noted. Lungs reveal scattered mild rhonchi. No wheezes or crackles. Breath sounds equal. Abdomen soft bowel sounds are heard. No masses or tenderness. Extremities are intact. No cyanosis clubbing or edema. Skin is without rash or lesion. Neurologic examination is brief but nonfocal. - Labs CBC & Chem 7: 12/01/23 05:48 12/01/23 05:48 Labs: Abnormal Lab Results - Last 24 Hours (Table) 11/29/23 12/01/23 12/01/23 Range/Units 16:10 05:48 05:48 WBC 23.59 H (4.50-10.00) X 10*3/uL RBC 3.98 L (4.40-5.60) X 10*6/uL Hgb 9.5 L (13.0-17.0) g/dL Hct 32.0 L (39.6-50.0) % MCH 23.9 L (27.0-32.0) pg MCHC 29.7 L (32.0-37.0) g/dL RDW 18.0 H (11.5-14.5) % Plt Count 673 H (140-440) X 10*3/uL Neutrophils # (Manual) 8.73 H (1.80-7.70) X 10*3/uL Lymphocytes # (Manual) 14.63 H (0.90-5.00) X 10*3/uL Monocytes # (Manual) 0 L (0.20-1.00) X 10*3/uL Total Bilirubin 0.2 L (0.3-1.2) mg/dL ALT <5 L (10-49) U/L Total Protein 6.0 L (6.2-8.2) g/dL Albumin 3.2 L (3.8-4.9) g/dL Albumin/Globulin Ratio 1.14 L (1.60-3.17) Ratio Fluid Appearance Cloudy A (Clear) Microbiology - Last 24 Hours (Table) 11/29/23 16:10 Gram Stain - Preliminary Bronchoalviolar Lavage - Right Bronchial Washings Culture - Preliminary Enterobacter aerogenes Assessment and Plan Plan: Right upper lobe lung consolidation/masslike opacities, differential includes infectious process with early abscess or malignancy. Repeat chest x-ray from today shows no significant change in the right upper lobe consolidation. 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 He is currently afebrile. He is currently on room air oxygen. Chronic leukocytosis, secondary to CLL. The patient has lymphocytosis. History of CLL. Hiatal hernia. History of a Parkinson's disease. Chronic dysphagia. History of acquired bronchiectasis. History of right lower lobe pleural-based pulmonary nodule. Severe thoracolumbar kyphoscoliosis Plan: Clinically stable Chest x-ray findings are essentially unchanged Bronchoscopy endobronchial lavage of the right upper lobe was done and the res ults are still pending for now, suspect gram-negative infection The patient continues on Zosyn with subsequent antibiotic modification based on the results of the bronchial lavage Clinically he is feeling better.
--- NOTE | 2023-12-02 07:15 | XR ---
EXAMINATION TYPE: XR chest 1V DATE OF EXAM: 12/02/2023 COMPARISON: 12/01/2023 HISTORY: Pneumonia follow-up TECHNIQUE: Single frontal view of the chest is obtained. FINDINGS: A large partially consolidative opacity involving the right upper lobe consistent with either a pneum onic infiltrate or neoplastic process is unchanged. The left lung remains clear. There is no pleural effusion. The heart and pulmonary vascular are normal. The osseous structures are intact IMPRESSION: No change in the acute process involving the right upper lobe. No new abnormality. [facility], , 12/02/2023 7:12 AM
[2023-12-02 07:50] LABS: ALT <6 U/L (4-49); AST 24 U/L (17-59); African American GFR (CKD) >90 (>60 ml/min/1.73 sqM); Albumin/Globulin Ratio 1.1; Alkaline Phosphatase 100 U/L (38-126); Anion Gap 5 mmol/L; Blood Urea Nitrogen 11 mg/dL (9-20); Calcium 9.5 mg/dL (8.4-10.2); Carbon Dioxide 32 mmol/L (22-30); Chloride 98 mmol/L (98-107); Globulin 2.8 g/dL; Glucose 78 mg/dL (74-99); Non-African American GFR(CKD) >90 (>60 ml/min/1.73 sqM); Potassium 4.6 mmol/L (3.5-5.1); Sodium 135 mmol/L (137-145); Total Bilirubin 0.4 mg/dL (0.2-1.3); Total Protein 5.8 g/dL (6.3-8.2)
[2023-12-02 07:58] LABS: Anisocytosis Slight; HGB 9.9 gm/dL (13.0-17.5); Hypochromasia Moderate; MCH 25.1 pg (25.0-35.0); Mean Platelet Volume 7.8; Platelet Count 616 k/uL (150-450); RBC 3.95 m/uL (4.30-5.90); RDW 17.4 % (11.5-15.5); WBC 21.2 k/uL (3.8-10.6)
[2023-12-02 08:09] VITALS: RESP 16
--- NOTE | 2023-12-02 08:39 | P.PN ---
Subjective Progress Note Date: 12/02/23 Jessica Pathak, is a 68-year-old male who presented to [facility] emergency room with a chief complaint of worsening shortness of breath, and a new 3.2 cm mass or focal consolidation with ill-defined margins in the right lower lobe on recent CT scan of the chest. Patient has a known history of chronic lymphocytic leukemia followed by oncology he also has a known history of Parkinson disease and history of bronchiectasis, he had a previous history of right lower lobe pleural-based pulmonary nodule followed by pulmonary as outpatient. He was evaluated in the emergency room vital examination on presentation revealed a temperature of 98.6 pulse 98 respirations 16 blood pressure 105/67 pulse ox 93% on room air Laboratory data revealed a white blood count of 28.8 hemoglobin 10.9 platelet count 822 BUN 19 creatinine 0.59 Testing in the emergency room revealed Patient was admitted to medical floor for further evaluation and treatment On 11/23/2023 patient is alert and oriented x 3. Patient reports improvement with shortness of breath but does report he does get short of breath with activity. Patient margaux on antibiotics azithromycin and Zosyn. Possible plans for bronchoscopy today per pulmonary. At this time patient denies chest pain or shortness of breath. Patient denies nausea vomiting or diarrhea. Patient denies any urinary burning or frequency. Current vital signs temp 97.7, heart rate 84, respiratory rate 16, blood pressure 117/74 with a pulse ox of 97% on room air. On 11/24/2023 patient was seen and examined on the medical floor he is alert and oriented x 3 in no apparent distress there is no fever or chills no headache or dizziness he is still having some cough and shortness of breath with activity otherwise he denies any complaints there is no fever or chills no headache or dizziness no chest pain no nausea or vomiting no abdominal pain no diarrhea and no urinary symptoms. At this time we will continue with IV antibiotics, decrease IV fluid, will continue to follow closely. On 11/25/2023 patient is alert and oriented x 3. Patient reports improvement with cough and shortness of breath. Patient remains on IV Zosyn. White blood cell remains elevated despite antibiotic treatment will consult infectious disease services. Family at bedside family expresses concerns about wanting bronchoscopy completed during hospital stay. Will await further recommendations from pulmonary services. Repeat chest x-ray has been ordered this a.m. All questions answered. Patient denies chest pain or shortness of breath. Patient denies nausea vomiting or diarrhea. Patient denies any urinary burning or frequency. On 11/26/2023 patient was seen and examined on the medical floor he is alert and oriented x 3 in no apparent distress he is complaining of cough and complaining of dizziness today otherwise he denies any complaints there is no fever or c hills no headache no chest pain no shortness of breath no nausea or vomiting no abdominal pain no diarrhea and no urinary symptoms. At this time will check echocardiogram in regard to dizziness, awaiting further recommendation from infectious disease and pulmonary, white blood count remains elevated at 24,000 On 11/27/2023 patient is alert and oriented x 3. 2D echo has been ordered. Patient remains on IV Zosyn. Repeat chest x-ray has been ordered awaiting further recommendations from pulmonary services. Infectious disease services following for leukocytosis. At this time patient denies chest pain or shortness of breath. Patient denies nausea vomiting or diarrhea. Patient denies any urinary burning or frequency On 11/28/2023 patient was seen and examined on the medical floor he is alert and oriented x 3 in no apparent distress he is complaining of cough and complaining of dizziness today otherwise he denies any complaints there is no fever or chills no headache no chest pain no shortness of breath no nausea or vomiting no abdominal pain no diarrhea and no urinary symptoms. Patient is being evaluated by pulmonary for possible bronchoscopy. On 11/29/2023 patient was seen and examined on the medical floor he is alert and oriented x 3 in no apparent distress he is complaining of cough and complaining of dizziness today otherwise he denies any complaints there is no fever or chills no headache no chest pain no shortness of breath no nausea or vomiting no abdominal pain no diarrhea and no urinary symptoms. plan is for bronchoscopy per pulmonary. on 11/30/2023 patient's alert and oriented 3. Patient underwent bronchoscopy yesterday per pulmonary services. Patient reports improvement with cough and shortness of breath.patient was started back on IV Zosyn per ID. White blood cell is trending down 20.0. At this time patient denies chest pain or shortness of breath. Patient denies nausea vomiting or diarrhea. Patient denies any urinary burning or frequency. On 12/01/2023 patient was seen and examined on the medical floor he is alert and oriented x 3 in no apparent distress, he is reporting improvement in his shortness of breath, there is no fever or chills no headache or dizziness no chest pain he is still having cough with yellow-green sputum production, no nausea or vomiting no abdominal pain no diarrhea no blood in the stools no burning with urination no frequency or urgency and no hematuria. White blood count remains elevated at 23,000, culture results are still pending, continue with IV Zosyn at this time, patient is followed by pulmonary critical care and infectious disease. On 12/02/2023 patient was seen and examined on the medical floor he is alert and oriented x 3 in no apparent distress he is still complaining of cough with yellow-green sputum production, he is complaining of shortness of breath with activity, otherwise he denies any complaints there is no fever or chills no headache or dizziness no chest pain no nausea or vomiting no abdominal pain no diarrhea no urinary symptoms. At this time we will continue with current antibiotic until further culture results and recommendation from infectious disease and pulmonary. Objective - Vital Signs Vital signs: Vital Signs Temp 98.1 F 12/02/23 07:23 Pulse 85 12/02/23 07:23 Resp 16 12/02/23 07:23 BP 127/80 12/02/23 07:23 Pulse Ox 95 12/02/23 07:23 FiO2 Intake & Output 12/01/23 12/02/23 12/02/23 18:59 06:59 18:59 Intake Total 1080 260 Output Total 100 Balance 980 260 Intake: Intake, IV Titration 260 Amount Piperacillin-Tazobactam 3 100 .375 gm In Sodium Chloride 0.9% 100 ml @ 25 mls/hr IVPB Q8HR [facility] Rx# :[id number] Sodium Chloride 0.9% 1, 160 000 ml @ 20 mls/hr IV . Q24H [facility] Rx#:[id number] Oral 1080 Output: Urine 100 Other: Voiding Method Urinal Urinal # Voids 3 - Exam In general patient is alert and oriented x 3 in no distress HEENT head normocephalic and atraumatic Neck is supple no JVD no goiter no lymphadenopathy no carotid bruit Chest examination is clear to auscultation no crackles no wheezing Cardiac exam reveals regular heart sounds S1 and S2 no gallops no murmurs Abdomen is soft nontender no organomegaly with normal bowel sounds Extremity exam reveals no edema no cyanosis or clubbing Neurological examination reveals no gross focal deficits - Labs CBC & Chem 7: 12/02/23 06:23 12/02/23 06:23 Labs: Abnormal Lab Results - Last 24 Hours (Table) 12/01/23 12/01/23 12/02/23 Range/Units 05:48 05:48 06:23 WBC 23.59 H 21.2 H (4.50-10.00) X 10*3/uL RBC 3.98 L 3.95 L (4.40-5.60) X 10*6/uL Hgb 9.5 L 9.9 L (13.0-17.0) g/dL Hct 32.0 L 32.0 L (39.6-50.0) % MCH 23.9 L (27.0-32.0) pg MCHC 29.7 L (32.0-37.0) g/dL RDW 18.0 H 17.4 H (11.5-14.5) % Plt Count 673 H 616 H (140-440) X 10*3/uL Neutrophils # (Manual) 8.73 H (1.80-7.70) X 10*3/uL Lymphocytes # (Manual) 14.63 H (0.90-5.00) X 10*3/uL Monocytes # (Manual) 0 L (0.20-1.00) X 10*3/uL Sodium (137-145) mmol/L Carbon Dioxide (22-30) mmol/L Creatinine (0.66-1.25) mg/dL Total Bilirubin 0.2 L (0.3-1.2) mg/dL ALT <5 L (10-49) U/L Total Protein 6.0 L (6.2-8.2) g/dL Albumin 3.2 L (3.8-4.9) g/dL Albumin/Globulin Ratio 1.14 L (1.60-3.17) Ratio 12/02/23 Range/Units 06:23 WBC (4.50-10.00) X 10*3/uL RBC (4.40-5.60) X 10*6/uL Hgb (13.0-17.0) g/dL Hct (39.6-50.0) % MCH (27.0-32.0) pg MCHC (32.0-37.0) g/dL RDW (11.5-14.5) % Plt Count (140-440) X 10*3/uL Neutrophils # (Manual) (1.80-7.70) X 10*3/uL Lymphocytes # (Manual) (0.90-5.00) X 10*3/uL Monocytes # (Manual) (0.20-1.00) X 10*3/uL Sodium 135 L (137-145) mmol/L Carbon Dioxide 32 H (22-30) mmol/L Creatinine 0.57 L (0.66-1.25) mg/dL Total Bilirubin (0.3-1.2) mg/dL ALT (10-49) U/L Total Protein 5.8 L (6.2-8.2) g/dL Albumin 3.0 L (3.8-4.9) g/dL Albumin/Globulin Ratio (1.60-3.17) Ratio Microbiology - Last 24 Hours (Table) 11/29/23 16:10 Acid Fast Bacilli Smear - Preliminary Bronchoalviolar Lavage - Right 11/29/23 16:10 Gram Stain - Preliminary Bronchoalviolar Lavage - Right Bronchial Washings Culture - Preliminary Enterobacter aerogenes Assessment and Plan Plan: Right lower lobe and right upper lobe consolidation opacities on recent CT scan done as outpatient, patient is admitted to medical floor pulmonary consultation was requested Underlying history of chronic lymphocytic leukemia Underlying history of Parkinson disease Underlying history of bronchiectasis Underlying history of chronic dysphagia Underlying history of right lower lobe pulmonary nodule At this time patient is admitted to medical floor Home medications reviewed and reordered Pulmonary consultation was requested Infectious disease and oncology services following Status post bronchoscopy on 11/29/2023 Echo ordered Will follow closely
[2023-12-02] MEDS: MULTIVITAMINS, THERA 1 EACH TAB PO SCH (09:00)
[2023-12-02 09:27] LABS: Eosinophils # (M) 0.21 k/uL (0-0.7); Lymphocytes # (M) 15.05 k/uL (1.0-4.8); Neutrophils # (M) 5.94 k/uL (1.3-7.7); Neutrophils % (M) 28 %; Nucleated Red Blood Cells 0 /100 WBC (0-0); Total Cells Counted 100
[2023-12-02 13:21] VITALS: BP 127/75; PULSE 97; TEMP 98
--- NOTE | 2023-12-02 14:16 | P.PN ---
Subjective Progress Note Date: 12/01/23 Principal diagnosis: Reason for follow-up is leukocytosis right upper lobe consolidation Patient is a 68-year-old male with a past medical history significant for parkinsonism osteoarthritis CLL never smoker presenting to the hospital for evaluation of increasing shortness of breath the patient did have a chest x-ray suggestive of right upper lobe consolidation did have elevated white count prompted this consultation. On today's evaluation that is 12/01/2023, patient has been afebrile, patient is breathing comfortably and is currently on room air, patient denies having any significant chest pain cough has decreased in intensity still bring up some sputum, patient denies nausea vomiting or diarrhea and no abdominal pain. Patient white count is 23.59, creatinine 0.6 Objective - Vital Signs Vital signs: Vital Signs Temp 97.4 F L 12/01/23 13:14 Pulse 91 12/01/23 13:14 Resp 16 12/01/23 13:14 BP 104/67 12/01/23 13:14 Pulse Ox 95 12/01/23 13:14 FiO2 Intake & Output 11/30/23 12/01/23 12/01/23 18:59 06:59 18:59 Intake Total 2277 210 Output Total 800 Balance 2277 -590 Intake: Intake, IV Titration 210 Amount Piperacillin-Tazobactam 3 100 .375 gm In Sodium Chloride 0.9% 100 ml @ 25 mls/hr IVPB Q8HR [facility] Rx# :[id number] Sodium Chloride 0.9% 1, 110 000 ml @ 20 mls/hr IV . Q24H [facility] Rx#:[id number] Oral 2277 Output: Urine 800 Other: Voiding Method Urinal Urinal Urinal # Voids 4 3 # Bowel Movements 1 - Exam GENERAL DESCRIPTION: An elderly male lying in bed in no distress RESPIRATORY SYSTEM: Unlabored breathing , decreased breath sounds at bases HEART: S1 S2 regular rate and rhythm , ABDOMEN: Soft , no tenderness EXTREMITIES: No edema feet - Labs CBC & Chem 7: 12/02/23 06:23 12/02/23 06:23 Labs: Abnormal Lab Results - Last 24 Hours (Table) 11/29/23 12/01/23 12/01/23 Range/Units 16:10 05:48 05:48 WBC 23.59 H (4.50-10.00) X 10*3/uL RBC 3.98 L (4.40-5.60) X 10*6/uL Hgb 9.5 L (13.0-17.0) g/dL Hct 32.0 L (39.6-50.0) % MCH 23.9 L (27.0-32.0) pg MCHC 29.7 L (32.0-37.0) g/dL RDW 18.0 H (11.5-14.5) % Plt Count 673 H (140-440) X 10*3/uL Neutrophils # (Manual) 8.73 H (1.80-7.70) X 10*3/uL Lymphocytes # (Manual) 14.63 H (0.90-5.00) X 10*3/uL Monocytes # (Manual) 0 L (0.20-1.00) X 10*3/uL Total Bilirubin 0.2 L (0.3-1.2) mg/dL ALT <5 L (10-49) U/L Total Protein 6.0 L (6.2-8.2) g/dL Albumin 3.2 L (3.8-4.9) g/dL Albumin/Globulin Ratio 1.14 L (1.60-3.17) Ratio Fluid Appearance Cloudy A (Clear) Microbiology - Last 24 Hours (Table) 11/29/23 16:10 Gram Stain - Preliminary Bronchoalviolar Lavage - Right Bronchial Washings Culture - Preliminary Enterobacter aerogenes Assessment and Plan (1) Leukocytosis Current Visit: Yes Status: Acute Code(s): D72.829 - ELEVATED WHITE BLOOD CELL COUNT, UNSPECIFIED SNOMED Code(s): 577030261 (2) Pneumonia Current Visit: Yes Status: Acute Priority: High Code(s): J18.9 - PNEUMONIA, UNSPECIFIED ORGANISM SNOMED Code(s): 533713328 Plan: 1patient with elevated white count in this patient presenting to the hospital with increasing shortness of breath patient did have a CT in the outpatient setting suggestive of right upper lobe mass chest x-ray showing right upper lobe mass/consolidation patient not running any fever did have a normal procalcitonin and does not look toxic elevated white count more likely due to his underlying CLL rather than infectious etiology 2-patient did have a repeat procalcitonin and is 0.09 chest x-ray repeated today shows consolation to be about the same, patient is status post bronchoscopy and wash with the postop diagnosis of pneumonia did not mention any mass 3-patient white count is slightly up today however the patient showing clinical improvement we will continue with Rylann while waiting for the BAL culture to finalize Dictation was produced using [employer] software. please excuse any grammatical, word or spelling errors.
--- NOTE | 2023-12-02 14:17 | P.PN ---
Subjective Progress Note Date: 12/02/23 Principal diagnosis: Reason for follow-up is leukocytosis right upper lobe consolidation Patient is a 68-year-old male with a past medical history significant for parkinsonism osteoarthritis CLL never smoker presenting to the hospital for evaluation of increasing shortness of breath the patient did have a chest x-ray suggestive of right upper lobe consolidation did have elevated white count prompted this consultation. On today's evaluation that is 12/02/2023, Patient is afebrile this morning patient denies having any chest pain shortness of breath and the patient cough is decreased in intensity with occasional sputum production, the patient is breathing comfortably on room air, patient denies any abdominal pain no diarrhea no nausea no vomiting, patient feeling better wants to go home. Patient white count is 21.2, creatinine 0.57 sputum is growing Enterobacter aeruginosa sensitive to Zosyn Objective - Vital Signs Vital signs: Vital Signs Temp 98.0 F 12/02/23 13:20 Pulse 97 12/02/23 13:20 Resp 16 12/02/23 13:20 BP 127/75 12/02/23 13:20 Pulse Ox 97 12/02/23 13:20 FiO2 Intake & Output 12/01/23 12/02/23 12/02/23 18:59 06:59 18:59 Intake Total 1080 260 594 Output Total 100 Balance 980 260 594 Intake: Intake, IV Titration 260 Amount Piperacillin-Tazobactam 3 100 .375 gm In Sodium Chloride 0.9% 100 ml @ 25 mls/hr IVPB Q8HR [facility] Rx# :[id number] Sodium Chloride 0.9% 1, 160 000 ml @ 20 mls/hr IV . Q24H [facility] Rx#:[id number] Oral 1080 594 Output: Urine 100 Other: Voiding Method Urinal Urinal # Voids 3 - Exam GENERAL DESCRIPTION: An elderly male lying in bed in no distress RESPIRATORY SYSTEM: Unlabored breathing , decreased breath sounds at bases HEART: S1 S2 regular rate and rhythm , ABDOMEN: Soft , no tenderness EXTREMITIES: No edema feet - Labs CBC & Chem 7: 12/02/23 06:23 12/02/23 06:23 Labs: Abnormal Lab Results - Last 24 Hours (Table) 12/02/23 12/02/23 Range/Units 06:23 06:23 WBC 21.2 H (3.8-10.6) k/uL RBC 3.95 L (4.30-5.90) m/uL Hgb 9.9 L (13.0-17.5) gm/dL Hct 32.0 L (39.0-53.0) % RDW 17.4 H (11.5-15.5) % Plt Count 616 H (150-450) k/uL Lymphocytes # (Manual) 15.05 H (1.0-4.8) k/uL Sodium 135 L (137-145) mmol/L Carbon Dioxide 32 H (22-30) mmol/L Creatinine 0.57 L (0.66-1.25) mg/dL Total Protein 5.8 L (6.3-8.2) g/dL Albumin 3.0 L (3.5-5.0) g/dL Microbiology - Last 24 Hours (Table) 11/29/23 16:10 Gram Stain - Final Bronchoalviolar Lavage - Right Bronchial Washings Culture - Final Enterobacter aerogenes 11/29/23 16:10 Acid Fast Bacilli Smear - Preliminary Bronchoalviolar Lavage - Right Assessment and Plan (1) Leukocytosis Current Visit: Yes Status: Acute Code(s): D72.829 - ELEVATED WHITE BLOOD CELL COUNT, UNSPECIFIED SNOMED Code(s): 128505350 (2) Pneumonia Current Visit: Yes Status: Acute Priority: High Code(s): J18.9 - PNEUMONIA, UNSPECIFIED ORGANISM SNOMED Code(s): 453366677 Plan: 1patient with elevated white count in this patient presenting to the hospital with increasing shortness of breath patient did have a CT in the outpatient setting suggestive of right upper lobe mass chest x-ray showing right upper lobe mass/consolidation patient not running any fever did have a normal procalcitonin and does not look toxic elevated white count more likely due to his underlying CLL rather than infectious etiology 2-patient did have a repeat procalcitonin and is 0.09 chest x-ray repeated today shows consolation to be about the same, patient is status post bronchoscopy and wash with the postop diagnosis of pneumonia did not mention any mass, BAL cu lture currently growing Enterobacter aeruginosa 3-patient white count is trending down we will switch Zosyn to cefepime better coverage for Enterobacter with the organism sensitive to Cipro he will be able to finish therapy with oral Cipro x 2 weeks on discharge Dictation was produced using [employer] software. please excuse any grammatical, word or spelling errors. Time with Patient: Less than 30
--- NOTE | 2023-12-02 14:50 | P.PN ---
Subjective Progress Note Date: 12/02/23 Patient is a 68-year-old male with past medical history significant for lung nodules, bronchiectasis, Parkinson's disease, CLL. Patient follows in the pulmonary office with Dr. Morocho. Had a previous right lower lobe peripheral based nodule. PET scan done in 2019 concerning for inflammatory process. This was followed outpatient. Patient had a more recent outpatient CT of the chest demonstrating right lower and upper lobe lung consolidation/mass like opacities. He was directed to the emergency department by his oncologist, Dr. Hebert. It appears the patient has a 3.2 cm mass or focal parenchymal consolidation with ill-defined margins in the right lower lobe. The center of the mass is hypodense possibly indicating necrosis. There is a large area of consolidated opacity with air bronchograms and areas of decreased density in the right upper lobe. Findings are suspicious for neoplasm or inflammatory process with early abscess development. Incidental hiatal hernia noted. CBC: WBC count 28.8, hemoglobin 10.9, hematocrit 33.8, platelets 822. CMP: Sodium 135, potassium 4.8, chloride 96, serum bicarb 32, BUN 19, creatinine 0.58, glucose 101. Lactic 1.1. Normal saline infusing at 100 mL/h LFTs unremarkable. Troponin less than 0.012. NT proBNP 376. Negative for influenza, RSV, COVID. Currently, the patient is covered on empiric antibiotics. Procalcitonin level pending. Afebrile. Currently resting comfortably on room air. SpO2 94%. Nontoxic appearance. Over the last 2 weeks the patient has had a congested cough with green sputum production. Sputum is foul tasting. No hemoptysis. There is associated right sided thoracic level back pain. He denies any fevers or chills. He has had an approximately 18 pound weight loss over the last couple months. He has been very fatigued over the last couple weeks. No smoking history. Patient does have Parkinson's disease, and normally ambulates with walker. Occasionally has issues swallowing. Food gets stuck in his throat. Pacheco quently coughs after eating. No dental infections. Denies drug or alcohol use. Progress note dated November 23, 2023. The patient is seen today in room 529. The patient feels better. Less short of breath. He is coughing, but not producing any phlegm. Cultures are thus far negative. Procalcitonin level was 0.16. He continues on azithromycin and Zosyn. Current labs include a white count of 24.3, hemoglobin 9.5, hematocrit 30.6, and a platelet count of 706,000. Cultures are thus far negative. Progress note dated November 24, 2023. The patient is seen this morning in room 529. The patient is on room air. Saturations are 95%. He is getting saline at 100 cc an hour. He continues on Zosyn. The patient had an uneventful night. He states that he is feeling better. He is coughing less, and producing less phlegm. No chest pain or chest discomfort. No fever or chills. No new labs today. Progress note dated November 25, 2023. 68-year-old male seen today in room 529. He is currently on room air. He is on Zosyn. He feels much better. Repeat chest x-ray will be ordered. His is in the room with him, and states that the patient is doing better. We are currently treating him for possible infection, involving the right upper lobe. Current new laboratory includes a sodium 136, potassium 4.5, chloride 99, CO2 27, BUN 9, creatinine 0.5. Sputum and blood cultures are currently negative or pending. Repeat chest x-ray continues to show a consolidation/mass, right upper lobe. 11/26/2023, patient is being seen for a follow-up. This is a 68-year-old male patient with known history of CLL and the patient is presenting with an extensive right lung pneumonia and the patient has developed a masslike consolidation involving the right lung. The white cell count is elevated and essentially consistent with lymphocytosis and the patient's lymphocytic count is in the order of 65% with a white cell count of 24 consistent with CLL. The electrolytes are all within normal limits. The patient is currently on room air oxygen. CRP was elevated at 7.2. Procalcitonin was at 0.09. The patient remains on IV Zosyn. Clinically however, the patient is improving. He is on room air oxygen with a pulse ox of 97%. Repeat chest x-ray was done on 11/25/2023 showed large consolidation involving the right lung probably somewhat improved and repeat chest x-ray will be obtained tomorrow. Possibility of malignancy cannot be completely excluded although it is felt to be less likely. On 11/27/2023, patient is being seen for a follow-up. The patient remains on room air oxygen. Denies having any significant respiratory distress. Repeat chest x-ray was done and the patient has a stable large area of masslike consolidation in the right upper lobe. The patient remains on IV Zosyn. As mentioned earlier, the procalcitonin level has been low. The electrolytes are all within normal limits. BUN is at 12 with a creatinine of 0.5. The patient has chronic lymphocytosis with a white cell count of 20.4 and a hemoglobin of 8.5. No altered mentation. ID is on the case. He denies having any chest pain. No significant sputum production. No nausea vomiting or diarrhea or abdominal pain. No altered mentation.. On today's evaluation of 11/28/2023, the patient is being seen for a follow-up. Clinically unchanged. Nevertheless, the chest x-ray still showing advanced consolidation in the right upper lobe. I had a nice discussion with the patient. We decided to do a bronchoscopy endobronchial lavage of the right upper lobe tomorrow. Meanwhile, the white cell count is gradually improved down to 18 and the patient has a hemoglobin of 9.4. The patient has significant lymphocytosis which is in the order of 62%. BUN is at 10 with a creatinine of 0.6 and a sodium level of 137. The patient remains on IV Zosyn. He remains on room air oxygen. He has significant kyphoscoliosis of the thoracolumbar spine. Minimal sputum production. The sputum cultures were negative. Blood pressure has been also negative. 11/29/2023, the patient is essentially unchanged. The patient remains on IV Zosyn. The chest x-ray showed a persistent right upper lobe consolidation and for that reason a bronchoscopy endobronchial lavage of the right upper lobe is scheduled to be done today. The patient remains on room air oxygen. He has a congested cough. The white cell count of 28 essentially lymphocytosis with a hemoglobin 9.3. Sodium is at 136, potassium of 4.4, bicarbonate 27 with a BUN of 9 and a creatinine of 0.5. The serum iron is at 21. Procalcitonin level is at 0.09. Patient is also being evaluated by infectious disease. Patient is breathing comfortably in bed. Patient on today's evaluation disc of 11/30/2023, the patient is feeling better. No new complaints. Bronchoscopy and bronchial lavage of the right upper lobe was done. Results are still pending for now. Meanwhile, the patient is on room air oxygen with a pulse ox of 97%. The patient remains on IV Zosyn. Repeat chest x-ray be obtained for tomorrow. Tolerating his diet. No other new complaints otherwise for now. On 12/01/2023, the patient's condition is stable. Repeat chest x-ray was done that showed a stable right upper lobe consolidation and bronchoscopy and bronchial lavage was done and the culture results are still pending. Patient remains on room air oxygen. Pulse ox 95%. The patient is afebrile. The white cell count is 23 with hemoglobin 9.5 and a platelet count of 673. Electrolytes are all within normal limits. Awaiting the results of the bronchioloalveolar lavage. On 12/02/2023, the patient is resting comfortably in bed. Bronchoscopy was completed and the patient was found to have Enterobacter aerogenes and this is sensitive to Zosyn. As such, the treatment will be continued. He remains on room air oxygen. Repeat chest x-ray was done and it showed an area of large consolidation in the right upper lobe which has slowly improved since his admi ssion. Nevertheless, it has not cleared for the time being. As such, the patient has no specific complaints. The white cell count of 21 with a hemoglobin of 9.9 and platelet count of 616. The electrolytes are normal with a BUN of 11 and a creatinine of 0.5. Based on all this, I think is reasonable to discharge this patient home on oral antibiotics. The choice may include Levaquin or moxifloxacin. Alternatively, cefuroxime or Bactrim may be also used regarding this microorganism. Objective - Vital Signs Vital signs: Vital Signs Temp 98.0 F 12/02/23 13:20 Pulse 97 12/02/23 13:20 Resp 16 12/02/23 13:20 BP 127/75 12/02/23 13:20 Pulse Ox 97 12/02/23 13:20 FiO2 Intake & Output 12/01/23 12/02/23 12/02/23 18:59 06:59 18:59 Intake Total 1080 260 594 Output Total 100 Balance 980 260 594 Intake: Intake, IV Titration 260 Amount Piperacillin-Tazobactam 3 100 .375 gm In Sodium Chloride 0.9% 100 ml @ 25 mls/hr IVPB Q8HR [facility] Rx# :[id number] Sodium Chloride 0.9% 1, 160 000 ml @ 20 mls/hr IV . Q24H [facility] Rx#:[id number] Oral 1080 594 Output: Urine 100 Other: Voiding Method Urinal Urinal # Voids 3 - Exam No acute distress, oriented 3. No supplemental oxygen. Room air oxygen HEENT examination is grossly unremarkable. Mucous membranes are moist. No oral lesions. Neck supple. Full range of motion. No adenopathy thyromegaly or neck vein distention. Cardiovascular examination reveals regular rhythm rate. S1-S2 normal. No S3 or S4. No discernible murmur noted. Lungs reveal scattered mild rhonchi. No wheezes or crackles. Breath sounds equal. Abdomen soft bowel sounds are heard. No masses or tenderness. Extremities are intact. No cyanosis clubbing or edema. Skin is without rash or lesion. Neurologic examination is brief but nonfocal. - Labs CBC & Chem 7: 12/02/23 06:23 12/02/23 06:23 Labs: Abnormal Lab Results - Last 24 Hours (Table) 12/02/23 12/02/23 Range/Units 06:23 06:23 WBC 21.2 H (3.8-10.6) k/uL RBC 3.95 L (4.30-5.90) m/uL Hgb 9.9 L (13.0-17.5) gm/dL Hct 32.0 L (39.0-53.0) % RDW 17.4 H (11.5-15.5) % Plt Count 616 H (150-450) k/uL Lymphocytes # (Manual) 15.05 H (1.0-4.8) k/uL Sodium 135 L (137-145) mmol/L Carbon Dioxide 32 H (22-30) mmol/L Creatinine 0.57 L (0.66-1.25) mg/dL Total Protein 5.8 L (6.3-8.2) g/dL Albumin 3.0 L (3.5-5.0) g/dL Microbiology - Last 24 Hours (Table) 11/29/23 16:10 Gram Stain - Final Bronchoalviolar Lavage - Right Bronchial Washings Culture - Final Enterobacter aerogenes 11/29/23 16:10 Acid Fast Bacilli Smear - Preliminary Bronchoalviolar Lavage - Right Assessment and Plan Plan: Right upper lobe lung consolidation/masslike opacities, differential includes infectious process with early abscess or malignancy. Repeat chest x-ray from today shows no significant change in the right upper lobe consolidation. 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 He is currently afebrile. He is currently on room air oxygen. Bronchoscopy endobronchial lavage of the right upper lobe showed Enterobacter aerogenes and the patient remains on IV Zosyn. Chronic leukocytosis, secondary to CLL. The patient has lymphocytosis. History of CLL. Hiatal hernia. History of a Parkinson's disease. Chronic dysphagia. History of acquired bronchiectasis. History of right lower lobe pleural-based pulmonary nodule. Severe thoracolumbar kyphoscoliosis Plan: Clinically stable Chest x-ray findings are essentially unchanged from the most recent chest x-ray comparison. Nevertheless, since admission, there is some interval improvement of the large area of consolidation of the right upper lobe. Bronchoscopy endobronchial lavage of the right upper lobe was done and the results are still pending for now, suspect gram-negative infection The patient continues on Zosyn and this can be switched to either Levaquin or Avelox at the time of discharge. Clinically he is feeling better. Outpatient follow-up regarding this right upp er lobe consolidation.
[2023-12-02] MEDS: CEFEPIME 2 GM in SODIUM CHLORIDE 0.9% 100 ML IVPB SCH (17:10)
[2023-12-03 09:14] LABS: Nucleated Cells, Body Fluid 58800 /UL
--- NOTE | 2023-12-09 08:58 | P.DS ---
Providers Date of admission: 11/21/23 18:45 Expected date of discharge: 12/02/23 Attending physician: Michael Foster Consults: 11/21/23 18:44 Consult Physician Routine Consulting Provider: Niko Hebert Consult Reason/Comments: known Do you want consulting provider notified?: Yes 11/21/23 18:45 Consult Physician Routine Consulting Provider: Alberto Coker Consult Reason/Comments: pna Do you want consulting provider notified?: Yes 11/25/23 09:12 Consult Physician Routine Consulting Provider: Betzaida Archer Consult Reason/Comments: leukocytosis Do you want consulting provider notified?: Yes Primary care physician: Qi David [facility] Hospital Course: Discharge diagnosis Right lower lobe and right upper lobe consolidation opacities on recent CT scan done as outpatient, patient is admitted to medical floor pulmonary consultation was requested Underlying history of chronic lymphocytic leukemia Underlying history of Parkinson disease Underlying history of bronchiectasis Underlying history of chronic dysphagia Underlying history of right lower lobe pulmonary nodule Hospital course Jessica Pathak, is a 68-year-old male who presented to [facility] emergency room with a chief complaint of worsening shortness of breath, and a new 3.2 cm mass or focal consolidation with ill-defined margins in the right lower lobe on recent CT scan of the chest. Patient has a known history of chronic lymphocytic leukemia followed by oncology he also has a known history of Parkinson disease and history of bronchiectasis, he had a previous history of right lower lobe pleural-based pulmonary nodule followed by pulmonary as outpatient. He was evaluated in the emergency room vital examination on presentation revealed a temperature of 98.6 pulse 98 respirations 16 blood pressure 105/67 pulse ox 93% on room air Laboratory data revealed a white blood count of 28.8 hemoglobin 10.9 platelet count 822 BUN 19 creatinine 0.59 Testing in the emergency room revealed Patient was admitted to medical floor for further evaluation and treatment On 11/23/2023 patient is alert and oriented x 3. Patient reports improvement wi th shortness of breath but does report he does get short of breath with activity. Patient margaux on antibiotics azithromycin and Zosyn. Possible plans for bronchoscopy today per pulmonary. At this time patient denies chest pain or shortness of breath. Patient denies nausea vomiting or diarrhea. Patient denies any urinary burning or frequency. Current vital signs temp 97.7, heart rate 84, respiratory rate 16, blood pressure 117/74 with a pulse ox of 97% on room air. On 11/24/2023 patient was seen and examined on the medical floor he is alert and oriented x 3 in no apparent distress there is no fever or chills no headache or dizziness he is still having some cough and shortness of breath with activity otherwise he denies any complaints there is no fever or chills no headache or dizziness no chest pain no nausea or vomiting no abdominal pain no diarrhea and no urinary symptoms. At this time we will continue with IV antibiotics, decrease IV fluid, will continue to follow closely. On 11/25/2023 patient is alert and oriented x 3. Patient reports improvement with cough and shortness of breath. Patient remains on IV Zosyn. White blood cell remains elevated despite antibiotic treatment will consult infectious disease services. Family at bedside family expresses concerns about wanting bronchoscopy completed during hospital stay. Will await further recommendations from pulmonary services. Repeat chest x-ray has been ordered this a.m. All questions answered. Patient denies chest pain or shortness of breath. Patient denies nausea vomiting or diarrhea. Patient denies any urinary burning or frequency. On 11/26/2023 patient was seen and examined on the medical floor he is alert and oriented x 3 in no apparent distress he is complaining of cough and complaining of dizziness today otherwise he denies any complaints there is no fever or chills no headache no chest pain no shortness of breath no nausea or vomiting no abdominal pain no diarrhea and no urinary symptoms. At this time will check echocardiogram in regard to dizziness, awaiting further recommendation from infectious disease and pulmonary, white blood count remains elevated at 24,000 On 11/27/2023 patient is alert and oriented x 3. 2D echo has been ordered. Patient remains on IV Zosyn. Repeat chest x-ray has been ordered awaiting further recommendations from pulmonary services. Infectious disease services following for leukocytosis. At this time patient denies chest pain or shortness of breath. Patient denies nausea vomiting or diarrhea. Patient denies any urinary burning or frequency On 11/28/2023 patient was seen and examined on the medical floor he is alert and oriented x 3 in no apparent distress he is complaining of cough and complaining of dizziness today otherwise he denies any complaints there is no fever or chills no headache no chest pain no shortness of breath no nausea or vomiting no abdominal pain no diarrhea and no urinary symptoms. Patient is being evaluated by pulmonary for possible bronchoscopy. On 11/29/2023 patient was seen and examined on the medical floor he is alert and oriented x 3 in no apparent distress he is complaining of cough and complaining of dizziness today otherwise he denies any complaints there is no fever or chills no headache no chest pain no shortness of breath no nausea or vomiting no abdominal pain no diarrhea and no urinary symptoms. plan is for bronchoscopy per pulmonary. on 11/30/2023 patient's alert and oriented 3. Patient underwent bronchoscopy yesterday per pulmonary services. Patient reports improvement with cough and shortness of breath.patient was started back on IV Zosyn per ID. White blood cell is trending down 20.0. At this time patient denies chest pain or shortness of breath. Patient denies nausea vomiting or diarrhea. Patient denies any urinary burning or frequency. On 12/01/2023 patient was seen and examined on the medical floor he is alert and oriented x 3 in no apparent distress, he is reporting improvement in his shortness of breath, there is no fever or chills no headache or dizziness no chest pain he is still having cough with yellow-green sputum production, no nausea or vomiting no abdominal pain no diarrhea no blood in the stools no burning with urination no frequency or urgency and no hematuria. White blood count remains elevated at 23,000, culture results are still pending, continue with IV Zosyn at this time, patient is followed by pulmonary critical care and infectious disease. On 12/02/2023 patient was seen and examined on the medical floor he is alert and oriented x 3 in no apparent distress he is still complaining of cough with yellow-green sputum production, he is complaining of shortness of breath with activity, otherwise he denies any complaints there is no fever or chills no headache or dizziness no chest pain no nausea or vomiting no abdominal pain no diarrhea no urinary symptoms. At this time we will continue with current antibiotic until further culture results and recommendation from infectious disease and pulmonary. Per infectious disease patient may be discharged home on Cipro. Patient to follow-up with PCP and consulting providers for further management Patient Condition at Discharge: Stable Plan - Discharge Summary Discharge Rx Participant: No New Discharge Prescriptions: New Ciprofloxacin HCl [Cipro] 500 mg PO BID 15 Days #30 tab Continue Montelukast Sodium [Singulair] 10 mg PO DAILY Cetirizine HCl [Zyrtec] 10 mg PO DAILY Carbidopa-Levodopa 25-100 mg [Sinemet 25-100 mg] 2 tab PO QID@,,, Men's Multivitamin Gummy 1 tab PO DAILY Cholecalciferol [Vitamin D3 (125 Mcg = 5000 Iu)] 125 mcg PO DAILY Discontinued hydrOXYzine HCL [Atarax] 50 mg PO HS Discharge Medication List Carbidopa-Levodopa 25-100 mg [Sinemet 25-100 mg] 2 tab PO QID@,,,01/16/19 [History] Cetirizine HCl [Zyrtec] 10 mg PO DAILY 01/16/19 [History] Montelukast Sodium [Singulair] 10 mg PO DAILY 01/16/19 [History] Cholecalciferol [Vitamin D3 (125 Mcg = 5000 Iu)] 125 mcg PO DAILY 11/21/23 [History] Men's Multivitamin Gummy 1 tab PO DAILY 11/21/23 [History] Ciprofloxacin HCl [Cipro] 500 mg PO BID 15 Days #30 tab 12/02/23 [Rx] Follow up Appointment(s)/Referral(s): [facility] [NON-STAFF] - 1 Week Qi David MD [Primary Care Provider] - 1-2 days Patient Instructions/Handouts: Viral Pneumonia (DC), Lung Cancer (DC) Activity/Diet/Wound Care/Special Instructions: hold atarex until completion of antibiotic Discharge Disposition: HOME WITH HOME HEALTH SERVICES
== END 2023-12-02 18:58 | disposition home health service (06) | DRG 194 ==
LOC: EC 14:41 → 5NMEDONC 18:45
PROVIDERS: ADMIT Internal Medicine; ATTEND Internal Medicine
PROC: 0B9C8ZX Drainage of Right Upper Lung Lobe, Via Natural or Artificial Opening Endoscopic, Diagnostic (ICD-10-PCS; principal; 2023-11-29 15:10)
DX: J18.9 Pneumonia, unspecified organism (principal); C91.10 Chronic lymphocytic leukemia of B-cell type not having achieved remission; J44.0 Chronic obstructive pulmonary disease with (acute) lower respiratory infection; G20.A1 Parkinson's disease without dyskinesia, without mention of fluctuations; F41.9 Anxiety disorder, unspecified; K44.9 Diaphragmatic hernia without obstruction or gangrene; M41.9 Scoliosis, unspecified; R13.10 Dysphagia, unspecified; Z79.899 Other long term (current) drug therapy; Z11.52 Encounter for screening for COVID-19
CPT/HCPCS: 31624; 36415; 71045; 71046; 80053; 82607; 82728; 82746; 82784; 83540; 83550; 83605; 83735; 83880; 84145; 84484; 85025; 85045; 85610; 85730; 86140; 87040; 87070; 87077; 87102; 87116; 87186; 87205; 87206; 87449; 87496; 87498; 87502; 87529; 87634; 87635; 87636; 87798; 88108; 88305; 89050; 93005; 93306; 94760; 96365; 96368; 99291